=== PATIENT | male | born 1975 | race Caucasian/White ===

== ENCOUNTER 2020-11-29 19:58 | Inpatient (IN) | payer OTHER, SELFPAY ==
--- NOTE | ~2020-11-29 | CT_ITS ---
EXAMINATION: CT abdomen pelvis wo con EXAM DATE: 11/30/2020 03:45 INDICATION: Abdominal distention. TECHNIQUE: Spiral CT of the abdomen and pelvis was performed without contrast. Axial, coronal and s agittal images of the abdomen and pelvis were reviewed. The dose-length product (DLP) for this exami nation was 888.30 mGy-cm. The exposure was tailored according to patient size (auto mA exposure cont rol), and iterative reconstruction (ASIR) was used as additional dose reduction technique. There is no prior study for comparison. FINDINGS: Small to moderate amount of ascites, mesenteric edema. There is some generalized body wall fat stranding, also extending into the right thigh. Left liver lobe lateral segment appears hypertrop hied, as well as the caudate lobe compared to other segments, suspect cirrhosis. Somewhat serpiginous appearing soft tissue densities in the upper aspect of retroperitoneum suspected to be varicosities, suspect portal hypertension. No focal regions of peritoneal nodularity to suggest carcinomatosis. Ad renal glands, spleen, pancreas are unremarkable. There are cholecystectomy clips. There is no nephr olithiasis or hydronephrosis. The prostate is unremarkable. The bladder is unremarkable. There is no retroperitoneal or pelvic lymphadenopathy. The appendix is not identified. There is small to moderate-sized gastroesophageal hiatal hernia. Th ere is expected amount of colonic stool. No free intraperitoneal gas. Heart is normal in size. Th ere is small right pleural effusion, adjacent right lower lobe subsegmental atelectasis/scarring. Th e lung bases are unremarkable. There are no osteoblastic or osteolytic lesions identified. IMPRESSION: 1. Suspect cirrhosis and portal hypertension. 2. Small to moderate ascites. 3. Small to moderate hiatal hernia. 4. Small right pleural effusion and adjacent atelectasis. Reviewed, dictated and finalized at location A.
--- NOTE | ~2020-11-29 | US_ITS ---
EXAMINATION: US paracentesis abd w/image DATE: 11/30/2020 12:12 INDICATION: Ascites. TECHNIQUE: The procedure and its risks, benefits, and alternatives were discussed with the patient. P otential risks discussed included bleeding and infection. The skin was prepped and draped in sterile fashion. 1% lidocaine was used for local anesthesia. Under ultrasound guidance, a 5 Fr catheter with trochar was advanced into the ascites in the left lower quadrant. Fluid was aspirated. The catheter w as removed, and a dressing was applied. There were no immediate complications. FINDINGS: Ultrasound images demonstrate ascites and the catheter within the fluid. IMPRESSION: 1. Successful ultrasound-guided paracentesis yielding 600 mL of clear, yellow fluid. Reviewed, dictated and finalized at location A.
--- NOTE | ~2020-11-29 | XR_ITS ---
XR chest 2V DATE: 11/29/2020 21:09 INDICATION: Chest pain, dizziness, lower limb swelling. Weakness. Nausea and vomiting. TECHNIQUE: AP and lateral views COMPARISON: None FINDINGS: There is cardiomegaly. Is aortic arch calcification and mild aortic unfolding. There is minimal atelectasis at the right lung base. The lungs otherwise appear clear. There may be s light right pleural effusion. No left pleural effusion. No pneumothorax. IMPRESSION: Cardiomegaly Minimal atelectasis at right lung base, possible slight right pleural effusion Reviewed, dictated and finalized at location A.
--- NOTE | ~2020-11-29 | CT_ITS ---
EXAMINATION: CT brain wo con DATE: 11/30/2020 11:32 INDICATION: Diplopia. Dizziness. TECHNIQUE: Computed tomography (CT) of the head was performed without intravenous contrast. The mA wa s adjusted according to patient size. Iterative reconstruction technique was employed. The dose-lengt h product was 681.00 mGy-cm. COMPARISON: None FINDINGS: There is no intracranial hemorrhage, acute infarction, or abnormal intracranial mass lesion . The ventricles are normal in size. There is mucosal thickening in the paranasal sinuses. The orbits are normal. There is a small right mastoid effusion. IMPRESSION: 1. Normal brain. Reviewed, dictated and finalized at location A. IMPRESSION: 1. Normal brain.
--- NOTE | ~2020-11-29 | US_ITS ---
EXAMINATION: US venous doppler [facility] DATE: 11/30/2020 12:13 INDICATION: Lower limb swelling TECHNIQUE: Grayscale ultrasound images without and with compression and Doppler ultrasound images of the bilateral lower extremity veins were obtained. COMPARISON: None. FINDINGS: The visualized portions of right common femoral vein, profunda (deep) femoral vein, femoral vein, pop liteal vein, posterior tibial veins, peroneal veins, gastrocnemius vein and greater saphenous vein ou tflow are patent. The visualized portions of left common femoral vein, profunda femoral vein, femoral vein, popliteal v ein, posterior tibial veins, peroneal veins, gastrocnemius vein and greater saphenous vein outflow ar e patent. IMPRESSION: 1. No deep venous thrombosis in either lower limb. Reviewed, dictated and finalized at location B.
--- NOTE | 2020-11-29 20:41 | ECG_ITS ---
Measurements Intervals [place] Rate: 94 P: NV: 0 QRS: -13 QRSD: 98 T: 62 QT: 412 QTc: 517 Interpretive Statements SINUS OR ECTOPIC ATRIAL RHYTHM PROLONGED QT INTERVAL ABNORMAL ECG Electronically Signed On 11-29-2020 21:00:56 CDT by Blaise Hill D.O.
[2020-11-29 20:42] VITALS: BP 142/90; PULSE 100; RESP 17; TEMP 36.9; O2SAT 98
[2020-11-29 21:01] LABS: Basophils Absolute Auto 0.1 K/mm3 (0.0-0.1); Eosinophils Absolute Auto 0.2 K/mm3 (0-0.3); Hematocrit 36.7 % (42.0-52.0); Hemoglobin 12.4 g/dL (14.0-18.0); Immature Granulocyte Absolute 0.03 K/mm3 (0.00-0.031); Immature Granulocyte Percent A 0.3 % (0-0.5); Immature Platelet Fraction Pct 12.2 % (0.9-11.2); Lymphocytes Percent Auto 25.7 % (18.3-44.2); Mean Corpuscular HGB Conc 33.8 g/dl (32-36); Mean Corpuscular Hemoglobin 34.5 pg (26-34); Mean Corpuscular Volume 102.2 fl (80-100); Mean Platelet Volume 11.9 fl (7.4-10.4); Monocytes Absolute Auto 1.6 K/mm3 (0.1-0.6); Monocytes Percent Auto 16.7 % (2.6-8.5); Neutrophils Absolute Auto 5.1 K/mm3 (1.3-6.7); Neutrophils Percent Auto 54.3 % (45.5-73.1); Platelet Count Result 59 k/mm3 (150-375); Red Blood Count 3.59 M/mm3 (4.6-6.20); Red Cell Distribution Width 16.6 % (11.5-14.5); White Blood Count 9.3 K/mm3 (4.5-10.0)
[2020-11-29 21:09] LABS: INR 1.8; Prothrombin Time 20.4 Seconds (11.1-14.7)
[2020-11-29 21:10] LABS: Anion Gap 10 mmol/L (8-16); Blood Urea Nitrogen 6 mg/dL (9-20); Calcium 8.7 mg/dL (8.4-10.2); Carbon Dioxide 24 mmol/L (22-30); Chloride 104 mmol/L (98-107); Estimated Glomerular Filt Rate > 60; Glucose 120 mg/dL (65-110); Partial Thromboplastin Time 33.7 SECONDS (22.3-36.8); Potassium 3.6 mmol/L (3.4-5.0); Sodium 138 mmol/L (137-145)
[2020-11-29 21:22] LABS: Troponin I 0.024 ng/mL (0.000-0.034)
[2020-11-30] VITALS (14 sets, daily range): BP systolic 107–142; BP diastolic 64–85; PULSE 79–107; RESP 16–22; TEMP 36.3–36.6; O2SAT 94–100; BMI 30.3
--- NOTE | 2020-11-30 | ECHO_ITS ---
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 Strain analysis performed. Summary 1. Complete two-dimensional, color flow and Doppler transthoracic echocardiogram is performed. 2. Strain analysis performed. 3. Left ventricular chamber dimension is moderately enlarged. 4. Left ventricular systolic function is mildly reduced, estimated at 40-45%. 5. There is mildly increased left ventricular wall thickness. 6. The left ventricular diastolic function is grade I diastolic dysfunction. 7. Global longitudinal strain is normal at -20 %. 8. Left atrial chamber dimension is mildly enlarged. 9. There is mild mitral valve regurgitation. 10. There is mild tricuspid valve regurgitation. 11. Moderate pulmonary hypertension, estimated pulmonary arterial systolic pressure is 48 mmHg. 12. There is mild pulmonic regurgitation. Left Ventricle Left ventricular chamber dimension is moderately enlarged. Left ventricular systolic function is mildly reduced, estimated at 40-45%. There is mildly increased left ventricular wall thickness. The left ventricular diastolic function is grade I diastolic dysfunction. Global longitudinal strain is normal at -20 %. Right Ventricle Right ventricular chamber dimension is normal. Right ventricular systolic function is normal. Left Atria Left atrial chamber dimension is mildly enlarged. Right Atria Right atrial chamber dimension is normal. Atrial Septum Intact interatrial septum visualized by color flow imaging. Aortic Valve The aortic valve is trileaflet. There is mild aortic valve sclerosis. There is no aortic valve stenosis. Pulmonic Valve The pulmonic valve is normal. There is no pulmonic valve stenosis. There is mild pulmonic regurgitation. Mitral Valve The mitral valve has normal leaflets. There is no mitral valve stenosis. There is mild mitral valve regurgitation. Tricuspid Valve The tricuspid valve leaflets are normal. There is no significant tricuspid valve stenosis. There is mild tricuspid valve regurgitation. Moderate pulmonary hypertension, estimated pulmonary arterial systolic pressure is 48 mmHg. Pericardium/Pleural The pericardium appears normal. There is no pericardial effusion. Inferior Vena Cava Normal inferior vena cava with >50% collapse upon inspiration consistent with normal right atrial pressure, 10 mmHg. Aorta The aortic root size at the sinus of Valsalva is normal. The prox ascending aorta size is normal. Left Ventricular Outflow Tract Name Value Normal LVOT 2D LVOT Diameter
--- NOTE | 2020-11-30 00:08 | ED.CHESTPAIN ---
HPI - Chest Pain General Chief Complaint: Chest Pain Stated Complaint: leg pain, swelling, dizzy x one month Time Seen by Provider: 11/30/20 00:07 Source: patient Mode of arrival: ambulatory Limitations: no limitations History of Present Illness HPI narrative: Patient is a 45-year-old male complaining of increasing lower extremity edema, increased abdominal distention causing chest discomfort that has been going on for the past at least 2 months . Patient attributes his chest discomfort due to the abdominal distention pushing up to his chest. Patient denies any abdominal pain, nausea, vomiting, diaphoresis, fever or chills. Patient was complaining of on and off dizziness is also been going on for the past few months currently denies being dizzy. Patient states that he has a history of hepatitis C, diagnosed years ago and has never been treated. Patient states that he occasionally drinks but not daily. Related Data Allergies Allergy/AdvReac Type Severity Reaction Status Date / Time No Known Allergies Allergy Unverified 05/25/17 07:07 Review of Systems Review of Systems: All systems reviewed & are unremarkable except as noted in HPI and below Constitutional: Constitutional: Denies body ache(s), Denies chills, Denies excessive sweating, Denies fatigue, Denies fever(s), Denies headache(s), Denies lethargy, Denies malaise and Denies weight loss Eyes: Eyes: Denies blurry vision, Denies change in vision and Denies loss of vision ENT: Denies dizziness, Denies ear discharge, Denies headache(s), Denies lip swelling, Denies epistaxis, Denies nasal congestion, Denies neck pain, Denies throat swelling and Denies tongue swelling Cardiovascular: Cardiovascular: Denies chest pain, Denies chest pain at rest, Denies chest pain with activity, Denies diaphoresis, Denies rapid heart rate, Denies edema, Denies irregular heart rhythm, Denies lightheadedness, Denies palpitations, Denies dyspnea and Denies dyspnea on exertion Respiratory: Respiratory: Denies chest congestion, Denies cough, Denies hemoptysis, Denies dyspnea and Denies dyspnea on exertion Gastrointestinal: Gastrointestinal: Denies abdominal pain, Denies melena, Denies hematochezia, Denies diarrhea, Denies nausea, Denies vomiting and Denies hematemesis Musculoskeletal: Musculoskeletal: Denies abnormal gait, Denies deformity, Denies joint swelling, Denies limited range of motion, Denies neck pain and Denies numbness Neurologic: Denies Abnormal speech present, Denies abnormal gait, Denies confusion, Denies headache(s), Denies focal weakness, Denies loss of vision, Denies numbness, Denies Other visual disturbances, Denies Sensory deficit (Neuro) and Denies weakness Psychiatric: Psychiatric: Denies confusion, Denies depression, Denies auditory hallucinations, Denies homicidal ideation and Denies suicidal ideation Endocrine: Endocrine: Denies cold intolerance, Denies excessive sweating, Denies fatigue, Denies heat intolerance and Denies palpitations Hematologic/Lymphatic: Hematologic/Lymphatic: Denies easy bleeding and Denies easy bruising Allergic/Immunologic: Allergic/Immunologic: Denies lip swelling, Denies throat swelling and Denies tongue swelling PMFSH Comments Past medical history: Hepatitis C Family history: Negative for coronary disease or CA Social history: Positive for smoker, occasional EtOH use, denies any drug use Exam Const: General: cooperative, healthy appearing, comfortable, no acute distress, well developed, alert and awake; No confusion Orientation/consciousness: oriented to person, oriented to place, oriented to time, patient oriented x3 and No confusion Limitations: no limitations HENMT: Head: normal to inspection, normocephalic and atraumatic Ears: hearing grossly normal bilaterally, TM normal on the right and TM normal on the left General nose exam: Normal external nose present, Normal nares present and No nasal discharge present Face and sinus: normal facial exam
[2020-11-30] MEDS: FUROSEMIDE INJ 40 MG/4 ML VIAL 20 MG IV PUSH ×2 (00:41→16:50)
[2020-11-30 00:54] LABS: NT Pro B Type Natriuretic Pept 191 pg/mL (5-100)
[2020-11-30 01:42] LABS: Alanine Aminotransferase 65 U/L (4-50); Albumin Level 3.5 g/dL (3.5-5.1); Alkaline Phosphatase 193 U/L (38-126); Aspartate Amino Transferase 195 U/L (17-59); Bilirubin,Total 4.5 mg/dL (0.2-1.3)
[2020-11-30 03:07] LABS: Troponin I 0.027 ng/mL (0.000-0.034)
[2020-11-30 04:06] LABS: Troponin I 0.026 ng/mL (0.000-0.034)
--- NOTE | 2020-11-30 04:58 | ADMGEN ---
This patient, Abiel Alberto, was admitted to Medical Room 346-01. Patient/family oriented to hospital policies and general routines including ID bracelet, bed and alarms, visiting hours, pain management, procedures, bathroom and other care routines, personal items, smoking policy, room service/diet, and visiting hours. Information on how to activate the Rapid Response Team has been discussed. Patient/Family are encouraged to report perceived risks to care and to ask questions if they do not understand what they are told or what they should do.
--- NOTE | 2020-11-30 09:46 | PM.IMHP ---
H&P: HPI History of Present Illness Date/Time: 11/30/20 09:46 Chief Complaint: leg swelling Narrative: Pt is a 45-year-old male with a history of untreated hepatitis-C who presented emergency room for lower extremity edema, abdominal swelling, dizziness and chest pain. Patient states about a month ago he started having lower extremity edema that started in his feet but went up to his thighs. He also notices stomach was more bloated than normal. He states he has a history of hepatitis-C but no history of cirrhosis. He does drink alcohol 3 days a week and when he does he drinks 2 mixed drinks and 3 fireball shots. He says he has never had this swelling before and he is unsure if he still has hepatitis-C. He says he was diagnosed with hepatitis C when he was 30 after sharing needles. He has not done IV drugs for 7 years. No history of blood clots. He does mention that he has been having some chest pain. He actually thinks the chest pain is from the abdomen pushing up into his chest. The pain is a stabbing/dull pain the last 2nd. It can happen while he is sitting or walking and it goes away immediately. It does not radiate to his arm or jaw. He has been noticing in the last 3 months that he has been dizzy. It happens when he is outside or inside and mostly when he stands up. He says laying down and drinking water helps the dizziness. he also notices that he has been having blurry vision on and off as well. he has no chest pain with the dizziness. No history of COVID or COVID vaccine. He does mention that he has a loss of appetite. No dark stool noted and he has regular light brown stools. Review of Systems Review of Systems: All systems reviewed & are unremarkable except as noted in HPI and below PMFSH Past Medical History Medical History (Updated 11/30/20 @ 11:01 by Susan Quiroz PA-C) History of hepatitis C Surgical History Surgical History (Updated 11/30/20 @ 11:02 by Susan Quiroz PA-C) History of appendectomy History of cholecystectomy Family History Family History (Updated 11/30/20 @ 11:02 by Susan Quiroz PA-C) Mother Peripheral arterial disease Sibling Diabetes mellitus Other Unknown family medical history Social History Social History (Updated 11/30/20 @ 11:03 by Susan Quiroz PA-C) Social History: patient smokes 1 pack per day and has done so since he was 15. He drinks 3 days a week and usually drinks 2 mixed drinks with 3 but fireball shots. No IV drugs or street drugs but does do marijuana. He would like to be a full code. In the event of him being unable to him make his own decisions, he elects Clement, his son as his surrogate decision maker. pt does no work Smoking packs per day: 1 Smoking cigarettes per day: 20.0 Years smoked: 30 Smoking pack-years: 30.00 Smoking status: Current every day smoker Tobacco type: cigarettes Second hand tobacco smoke exposure: No Alcohol intake: current Drinks per week: 6 Substance use: current Substance use type: marijuana Gender identity (if verbalized by the patient): Male Spiritual care concerns: No Meds Home Medications and Allergies Home Medications Medication Instructions Recorded Confirmed Type No Home Medications 11/30/20 11/30/20 History Allergies Allergy/AdvReac Type Severity Reaction Status Date / Time No Known Allergies Allergy Unverified 05/25/17 07:07 Vital Signs Vital Signs - 24 hr 11/29/20 20:42 11/30/20 00:08 11/30/20 00:26 Temperature 98.5 F Pulse Rate 100 100 96 Respiratory Rate 17 21 H Blood Pressure 142/90 H 142/85 H 119/77 Pulse Oximetry 98 97 98 11/30/20 01:31 11/30/20 02:31 11/30/20 03:01 Temperature Pulse Rate 93 94 88 Respiratory Rate 20 22 H 17 Blood Pressure 116/64 108/67 119/66 Pulse Oximetry 96 94 96 11/30/20 03:58 11/30/20 04:47 11/30/20 06:00 Temperature 97.7 F 98 F Pulse Rate 94 85 94 Respiratory Rate 18 16 18 Bl
[2020-11-30 10:23] LABS: Alanine Aminotransferase 56 U/L (4-50); Albumin Level 3.1 g/dL (3.5-5.1); Alkaline Phosphatase 160 U/L (38-126); Aspartate Amino Transferase 165 U/L (17-59); Bilirubin,Total 5.5 mg/dL (0.2-1.3)
[2020-11-30 11:03] LABS: Hepatitis B Surface Antigen Negative (Negative)
[2020-11-30 11:08] LABS: HAV RESULT Negative (Negative); Hepatitis B Core IgM Result Negative (Negative)
[2020-11-30 11:23] LABS: Hepatitis C Virus Antibody Reactive (Negative)
[2020-11-30 11:29] LABS: Folic Acid 4.8 ng/mL (2.76->20)
[2020-11-30] MEDS: SPIRONOLACTONE 25 MG TABLET PO (12:19)
[2020-11-30 14:23] LABS: Source Peritoneal Fluid Peritoneal Fluid
[2020-11-30 14:24] LABS: Appearance Peritoneal Fluid Clear (Clear); Color Peritoneal Fluid Yellow (Colorless); Nucleated Cells Peritoneal Flu 137 /uL (0-500); RBC Peritoneal Fluid 517 /uL (0-100000)
[2020-11-30 14:31] LABS: Neutrophils Peritoneal Fluid 1 % (0-25)
[2020-11-30 14:32] LABS: Macrophages Peritoneal Fluid 6 %; Monocytes Peritoneal Fluid 49 %
[2020-11-30 16:37] LABS: Lymphocytes Peritoneal Fluid 44 %
--- NOTE | 2020-11-30 16:54 | WPDGICN ---
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): Code(s): B19.20 - Unspecified viral hepatitis C without hepatic coma; K74.69 - Other cirrhosis of liver Status: Acute Assessment and Plan: here with decompensated cirrhosis due to HCV, he is treatment naive MELD score 19 he also will need to quit drinking alcohol nutrition support will do also EGD as outpatient to assess if varices, phg, etc (2) Abdominal ascites: Qualifiers: Ascites type: other type Qualified Code(s): R18.8 - Other ascites Code(s): R18.8 - Other ascites Status: Acute Assessment and Plan: no sbp will start oral diuretics (aldactone and lasix), 2g na diet we can see him in office but because high meld score and young age, also will benefit to establish with a lead supply worker in [place] (3) Elevated liver enzymes: Code(s): R74.8 - Abnormal levels of other serum enzymes Status: Acute Assessment and Plan: from cirrhosis (4) Thrombocytopenia: Code(s): D69.6 - Thrombocytopenia, unspecified Status: Acute Assessment and Plan: from cirrhosis (5) Drug abuse in remission: Code(s): F19.11 - Other psychoactive substance abuse, in remission Status: Acute (6) Chest pain: Code(s): R07.9 - Chest pain, unspecified Status: Acute (7) Dizziness: Code(s): R42 - Dizziness and giddiness Status: Acute (8) Macrocytic anemia: Code(s): D53.9 - Nutritional anemia, unspecified Status: Acute GI Consult Note Consult date/time: 11/30/20 16:54 Reason for consult: HCV cirrhosis, ascites HPI: Abiel Alberto is a 45 year old male with history of hepatitis C diagnosed when he was 30 yo, former IVDA clean for 7 years. He came here with progressive lower extremity edema over last month, increase abdominal girth, dizziness and chest pain. He drinks alcohol 3 days a week and when he does he drinks 2 mixed drinks and 3 fireball shots. He is treatment naive and otherwise not taking any medication. He says that chest pain is from the abdomen pushing up, describes as stabbing/dull pain. Blood work consistent with cirrhosis, had platelets 59, inr 1.8, creat 0.7, bili 4.5. CT scan reviewed, showed cirrhosis and portal hypertension, small to moderate ascites, small to moderate hiatal hernia. He underwent paracentesis and 600ml removed, no SBP. Review of Systems Constitutional: Constitutional: Denies chills Eyes: Eyes: Denies blurry vision ENT: Reports Normal hearing present Cardiovascular: Cardiovascular: Reports chest pain Respiratory: Respiratory: Denies cough Gastrointestinal: Gastrointestinal: Denies melena Genitourinary: Genitourinary: Denies dysuria Musculoskeletal: Musculoskeletal: Denies neck pain Integumentary/Breasts: Skin/Breast: Denies dry skin Neurologic: Denies numbness Psychiatric: Psychiatric: Reports no additional psychiatric complaints [facility] Past Medical History Medical History (Updated 11/30/20 @ 17:01 by Brett Wellington MD) 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 He drinks 3 days a week and usually drinks 2 mixed drinks with 3 but fireball shots. No IV drugs or street drugs but does do marijuana. He would like to be a full code. In the event of him being unable to him make his own decisions, he suleiman
[2020-11-30 23:02] LABS: Hepatitis C Virus Antibody 0.06 S/C; Hepatitis C Virus Antibody Negative (Negative)
[2020-12-01] VITALS (7 sets, daily range): BP systolic 126–130; BP diastolic 74–78; PULSE 80–97; RESP 18; TEMP 36.1–36.3; O2SAT 96–100
[2020-12-01 06:28] LABS: Hematocrit 35.6 % (42.0-52.0); Hemoglobin 12.1 g/dL (14.0-18.0); Immature Platelet Fraction Pct 15.1 % (0.9-11.2); Mean Corpuscular Hemoglobin 35.3 pg (26-34); Mean Corpuscular Volume 103.8 fl (80-100); Mean Platelet Volume 13.6 fl (7.4-10.4); Platelet Count Result 48 k/mm3 (150-375); Red Blood Count 3.43 M/mm3 (4.6-6.20); Red Cell Distribution Width 16.9 % (11.5-14.5); White Blood Count 6.7 K/mm3 (4.5-10.0)
[2020-12-01 06:39] LABS: Alanine Aminotransferase 48 U/L (4-50); Albumin Level 2.8 g/dL (3.5-5.1); Alkaline Phosphatase 140 U/L (38-126); Anion Gap 5 mmol/L (8-16); Aspartate Amino Transferase 139 U/L (17-59); Bilirubin Direct 0.2 mg/dL (0-0.3); Bilirubin,Total 6.8 mg/dL (0.2-1.3); Blood Urea Nitrogen 6 mg/dL (9-20); Calcium 8.2 mg/dL (8.4-10.2); Carbon Dioxide 23 mmol/L (22-30); Chloride 104 mmol/L (98-107); Estimated CRCL calculation 159 ml/min; Estimated Glomerular Filt Rate > 60; Glucose 95 mg/dL (65-110); Magnesium 1.6 mg/dL (1.6-2.3); Potassium 3.4 mmol/L (3.4-5.0); Sodium 132 mmol/L (137-145)
[2020-12-01 07:18] LABS: HIV 1/2 Ab P24 Ag Result Negative (Negative)
[2020-12-01] MEDS: SPIRONOLACTONE 25 MG TABLET 100 MG PO (07:57)
[2020-12-01] MEDS: FUROSEMIDE 40 MG TABLET PO (07:57)
--- NOTE | 2020-12-01 15:04 | WPDGIPROGNO ---
Progress Note: A&P Assessment and Plan (1) Decompensated cirrhosis related to hepatitis C virus (HCV): Code(s): B19.20 - Unspecified viral hepatitis C without hepatic coma; K74.69 - Other cirrhosis of liver Status: Acute Assessment and Plan: repeat serology pending he can follow up in office in 4-6 weeks and if + RNA then will talk about options of treatment for his HCV blood work for other chronic liver conditions pending will also set up EGD as outpatient to assess if varices, PGH, etc (2) Thrombocytopenia: Code(s): D69.6 - Thrombocytopenia, unspecified Status: Acute Assessment and Plan: from cirrhosis (3) Macrocytic anemia: Code(s): D53.9 - Nutritional anemia, unspecified Status: Acute (4) Abdominal ascites: Qualifiers: Ascites type: other type Qualified Code(s): R18.8 - Other ascites Code(s): R18.8 - Other ascites Status: Acute Assessment and Plan: no sbp on lasix and aldactone, renal function ok also continue with 2g na diet and nutrition support (5) Colon cancer screening: Code(s): Z12.11 - Encounter for screening for malignant neoplasm of colon Status: Acute Assessment and Plan: he also would like to have screening colonoscopy since never had one will set up (6) Drug abuse in remission: Code(s): F19.11 - Other psychoactive substance abuse, in remission Status: Acute Subjective Date/time seen: 12/01/20 15:04 Interval history: feeling better, abdomen less distended and also less leg edema. Review of Systems Review of Systems: All systems reviewed & are unremarkable except as noted in HPI and below Exam Const: General: comfortable and no acute distress HENMT: General nose exam: Normal nares present Eyes: Pupils: Equal, round and reactive pupils present Neck: Neck: supple Resp: Effort & Inspection: normal respiratory effort Cardio: Rate: regular rate GI: GI Palp: Yes Soft to palpation and No Guarding due to palpation present (GI) Auscultation: normal bowel sounds Other: less distended Skin: General skin exam: no rashes or lesions noted Neuro: Speech: normal speech Motor exam (neuro): Normal motor muscle tone present throughout Extrem: General: pedal edema Psych: Mental Status: mental status grossly normal Objective Data Vital Signs Vital Signs: Vital Signs - 24 hr 11/30/20 15:07 11/30/20 20:00 11/30/20 22:00 Temperature 97.4 F L Pulse Rate 90 107 H 91 Respiratory Rate 21 H Blood Pressure 119/69 Pulse Oximetry 100 12/01/20 00:00 12/01/20 04:00 12/01/20 06:00 Temperature 97.0 F L Pulse Rate 81 82 80 Respiratory Rate 18 Blood Pressure 126/78 Pulse Oximetry 96 12/01/20 08:00 12/01/20 12:00 Temperature Pulse Rate 97 85 Respiratory Rate Blood Pressure Pulse Oximetry Intake/Output Intake/Output: Intake & Output 11/28/20 11/29/20 11/30/20 12/01/20 23:59 23:59 23:59 23:59 Intake Total 1030 1200 Output Total 1700 800 Balance -670 400 Meds/Results Medications: Active Medications Generic Name Dose Route Start Last Admin Trade Name Freq PRN Reason Stop Dose Admin Furosemide 40 mg 12/01/20 09:00 12/01/20 07:57 Furosemide 40 Mg Tablet PO 40 mg DAILY JASPAL Administration Promethazine HCl 12.5 mg 11/30/20 09:47 Promethazine Hcl 25 Mg/Ml Ampul IV PUSH Q4H PRN Nausea And Vomiting Spironolactone 100 mg 12/01/20 09:00 12/01/20 07:57 Spironolactone 25 Mg Tablet PO 100 mg QAM JASPAL Administration Radiology Results: ITS Impressions Chest X-Ray 11/29/20 21:13 IMPRESSION: Cardiomegaly Minimal atelectasis at right lung base, possible slight right pleural effusion Abdomen/Pelvis CT 11/30/20 08:11 IMPRESSION: 1. Suspect cirrhosis and portal hypertension. 2. Small to moderate ascites. 3. Small to moderate hiatal hernia. 4. Small right pleural effusion and adjac
--- NOTE | 2020-12-01 17:30 | PM.DS ---
DS: Admitting Diagnosis Admitting Diagnosis Bilateral lower extremity edema, cirrhosis, ascites DS: Discharge Diagnosis Discharge Diagnosis (1) Decompensated cirrhosis related to hepatitis C virus (HCV): Code(s): B19.20 - Unspecified viral hepatitis C without hepatic coma; K74.69 - Other cirrhosis of liver Status: Acute Assessment and Plan: repeat serology pending - hep c panel pending he can follow up in primary care office and/or GI in 4-6 weeks and if + RNA then will talk about options of treatment for his HCV HIV negative LFTs abnormally elevated, but improving slowly needs to F/U with GI for outpatient EGD to monitor for varices, etc. (2) Thrombocytopenia: Code(s): D69.6 - Thrombocytopenia, unspecified Status: Acute Assessment and Plan: Related to cirrhosis / liver failure/ related to alcohol use Platelets are 48 today, they were 59 yesterday Platelets in December of 2018 were 153 (3) Macrocytic anemia: Code(s): D53.9 - Nutritional anemia, unspecified Status: Acute Assessment and Plan: Vit B12 elevated and folate WNL no signs of blood loss on exam will need to follow up with his primary care provider for iron deficit workup Continue to improve dietary intake and stop alcohol consumption (4) Abdominal ascites: Qualifiers: Ascites type: other type Qualified Code(s): R18.8 - Other ascites Code(s): R18.8 - Other ascites Status: Acute Assessment and Plan: Due to cirrhosis -paracentesis completed 600 mls of fluid removed which then showed no growth per culture continue with 2g na diet and nutrition support on lasix and aldactone, renal function ok Patient stated these medications greatly improved his ability to get rid of his fluid, experience softer abdomen and tolerate eating more with each meal. (5) Colon cancer screening: Code(s): Z12.11 - Encounter for screening for malignant neoplasm of colon Status: Acute Assessment and Plan: Patient will need to follow up with GI for his outpatient screening colonoscopy (6) Drug abuse in remission: Code(s): F19.11 - Other psychoactive substance abuse, in remission Status: Acute Assessment and Plan: No anxiety or withdrawal noted at this time No tachycardia or uncontrolled hypertension or DTs noted. no concerns (7) Cirrhosis: Code(s): K74.60 - Unspecified cirrhosis of liver Status: Acute Assessment and Plan: Symptoms and CT findings consistent with cirrhosis -CT showing moderate ascites and patient is symptomatic. - Paracentesis ordered -could be due to history of untreated hepatitis-C, will obtain hepatitis panel with hepatitis C RNA -will do routine labs such as smooth muscle, alpha fetoprotein, alpha-1 antitrypsin, TANNER, ceruloplasmin, mitochondrial antibody and patient will need to follow up with his primary care physician or GI physician for these results -continue Lasix 20 mg IV b.i.d. and start spironolactone -urine output adequate - Tolerating oral intake well after his procedure -GI consult appreciated and patient has already is discussed how he will be following up with Dr. Helm (8) Elevated liver enzymes: Code(s): R74.8 - Abnormal levels of other serum enzymes Status: Acute Assessment and Plan: Likely due to above -continue with above workup (9) History of hepatitis C: Code(s): Z86.19 - Personal history of other infectious and parasitic diseases Status: Acute Assessment and Plan: Will check hepatitis-C RNA See above workup (10) Chest pain: Code(s): R07.9 - Chest pain, unspecified Status: Acute Assessment and Plan: Appears atypical -troponins negative x3 -EKG shows prolonged QT interval, no evidence of ACS -BNP slightly elevated but does not suggest heart failure -ECHO: Left ventricular chamber dimension is moderately enlarged. LV EF reduced, estimated at
[2020-12-02 19:06] LABS: Hepatitis C RNA, Quant PCR 912 IU/mL
[2020-12-02 22:07] LABS: Ceruloplasmin 25 mg/dL (18-36)
[2020-12-03 11:49] LABS: Mitochondrial (M2) Ab (IgG) <=20.0 U (<=20.0)
[2020-12-03 17:07] LABS: Glucose Peritoneal Fluid 106 mg/dL; LDH Peritoneal Fluid 34 U/L (<63); Total Protein Peritoneal Fluid <3.0 g/dL
[2020-12-04 13:36] LABS: Hepatitis C Viral RNA PCR 188 IU/mL
[2020-12-04 17:12] LABS: Alpha Fetoprotein Tumor Marker 6.2 ng/mL (<6.1)
[2020-12-05 00:29] LABS: Amylase Peritoneal Fluid 27 U/L
[2020-12-06 00:44] LABS: Albumin Peritoneal Fluid 0.4 g/dL
[2020-12-06 10:03] LABS: Actin Antibody (IgG) 41 U (<20)
== END 2020-12-01 18:29 | disposition home or self-care (01) ==
LOC: ANHED 11-30 03:31 → ANH3MED 11-30 04:56
PROVIDERS: Emergency Medicine; Internal Medicine Gastroenterology; Physician Assistant; Admitting Provider Internal Medicine; Emergency Provider Emergency Medicine; PCP Internal Medicine Infectious Disease; Visit Provider Nurse Practitioner
DX: K74.69 Other cirrhosis of liver (principal); R18.8 Other ascites; R07.9 Chest pain, unspecified; B19.20 Unspecified viral hepatitis C without hepatic coma; Z90.49 Acquired absence of other specified parts of digestive tract; F17.210 Nicotine dependence, cigarettes, uncomplicated; D69.6 Thrombocytopenia, unspecified; D53.9 Nutritional anemia, unspecified; R94.31 Abnormal electrocardiogram [ECG] [EKG]
CPT/HCPCS: 36415; 49083; 70450; 71046; 74176; 80048; 80074; 80076; 82042; 82104; 82105; 82150; 82390; 82607; 82746; 82945; 83516; 83520; 83615; 83735; 83880; 84157; 84484; 85025; 85027; 85055; 85060; 85610; 85730; 86038; 86703; 86803; 87070; 87075; 87205; 87522; 88104; 88108; 88305; 89051; 93005; 93306; 93970; 96374; 99285; A9270; G0378; G0379; G0432; J1940

== ENCOUNTER 2021-01-22 17:50 | Inpatient (IN) | payer OTHER, SELFPAY ==
--- NOTE | ~2021-01-22 | CT_ITS ---
EXAMINATION: CTA chest PE protocol DATE: 01/23/2021 08:34 INDICATION: Chest pain. TECHNIQUE: Computed tomography angiography (CTA) of the chest was performed with 100 mL Omnipaque-350 intravenous contrast timed to evaluate the pulmonary arteries. Coronal maximum intensity projection 3D-reconstructions were created by the technologist. Automated exposure control and iterative reconst ruction technique were employed. The dose-length product was 554.13 mGy-cm. COMPARISON: CT abdomen and pelvis 11/30/2020 FINDINGS: There is mild atelectasis bilaterally. A calcified right lung nodule and calcified right hi lar lymph nodes are consistent with old granulomatous disease. There is a trace right pleural effusio n. The heart size is normal. No pericardial effusion. There is a moderate-sized sliding hiatal hernia . There is no pulmonary embolus. There are changes of cholecystectomy. There is liver surface nodular ity, consistent with cirrhosis. There is a small volume of perihepatic ascites. There is mild gastroh epatic and periportal lymphadenopathy, likely reactive. There is bilateral gynecomastia. There is mil d thoracic spondylosis. IMPRESSION: 1. No pulmonary embolus. 2. Cirrhosis of the liver. 3. Small volume of ascites. 4. Moderate-sized sliding hiatal hernia. 5. Stable mild abdominal lymphadenopathy, likely reactive. Reviewed, dictated and finalized at location A.
[2021-01-22 18:08] VITALS: BP 121/93; PULSE 97; RESP 14; TEMP 37.2; O2SAT 98
--- NOTE | 2021-01-22 18:11 | ECG_ITS ---
Measurements Intervals [place] Rate: 90 P: 5 NC: 121 QRS: 1 QRSD: 98 T: 72 QT: 419 QTc: 513 Interpretive Statements SINUS OR ECTOPIC ATRIAL RHYTHM DELAYED PRECORDIAL R/S TRANSITION PROLONGED QT INTERVAL ABNORMAL ECG Electronically Signed On 01-22-2021 19:44:07 CDT by Blaise Hill D.O.
[2021-01-22 18:30] VITALS: BP 144/85; PULSE 95; RESP 16; O2SAT 100
[2021-01-22 18:32] LABS: Basophils Absolute Auto 0.1 K/mm3 (0.0-0.1); Basophils Percent Auto 1.4 % (0.2-1.2); Eosinophils Absolute Auto 0.7 K/mm3 (0-0.3); Eosinophils Percent Auto 6.9 % (0-4.4); Hematocrit 34.4 % (42.0-52.0); Hemoglobin 12.1 g/dL (14.0-18.0); Immature Granulocyte Absolute 0.05 K/mm3 (0.00-0.031); Immature Granulocyte Percent A 0.5 % (0-0.5); Immature Platelet Fraction Pct 11.6 % (0.9-11.2); Lymphocytes Absolute Auto 2.04 K/mm3 (0.9-3.2); Lymphocytes Percent Auto 19.8 % (18.3-44.2); Mean Corpuscular HGB Conc 35.2 g/dl (32-36); Mean Corpuscular Hemoglobin 35.7 pg (26-34); Mean Corpuscular Volume 101.5 fl (80-100); Mean Platelet Volume 11.9 fl (7.4-10.4); Monocytes Absolute Auto 1.3 K/mm3 (0.1-0.6); Neutrophils Percent Auto 58.4 % (45.5-73.1); Platelet Count Result 58 k/mm3 (150-375); Red Blood Count 3.39 M/mm3 (4.6-6.20); Red Cell Distribution Width 15.3 % (11.5-14.5); White Blood Count 10.3 K/mm3 (4.5-10.0)
--- NOTE | 2021-01-22 18:38 | ED.GENADULT ---
HPI - General Adult General Chief complaint: Unspecified Stated complaint: leg swelling/body aches Time Seen by Provider: 01/22/21 18:38 Source: patient History of Present Illness HPI narrative: Patient is a 45 y/o male complaining of bilateral leg pain and swelling for several months. He describes his pain as pressure and rates it as 10/10. There is no known alleviating or exacerbating factor. He also had some chest pain earlier, but no chest pain at this time. Of note, he has history of cirrhosis. Related Data Home Medications Medication Instructions Recorded Confirmed No Home Medications 11/30/20 11/30/20 Allergies Allergy/AdvReac Type Severity Reaction Status Date / Time No Known Allergies Allergy Unverified 05/25/17 07:07 Review of Systems Constitutional: Constitutional: Denies chills, Denies fever(s), Denies headache(s) and Denies weakness Eyes: Eyes: Denies blurry vision ENT: Denies headache(s) and Denies neck pain Cardiovascular: Cardiovascular: Reports chest pain and Reports dyspnea Respiratory: Respiratory: Denies cough and Reports dyspnea Gastrointestinal: Gastrointestinal: Denies abdominal pain, Denies diarrhea, Denies nausea and Denies vomiting Genitourinary: Genitourinary: Denies hematuria and Denies dysuria Musculoskeletal: Musculoskeletal: Reports as per HPI, Denies back pain, Denies neck pain and Reports other (leg swelling) Neurologic: Denies headache(s) and Denies weakness PMFSH Past Medical History Medical History Colon cancer screening Decompensated cirrhosis related to hepatitis C virus (HCV) Drug abuse in remission History of hepatitis C Surgical History Surgical History History of appendectomy History of cholecystectomy Family History Family History Mother Peripheral arterial disease Sibling Diabetes mellitus Other Unknown family medical history Social History Social History Social History: patient smokes 1 pack per day and has done so since he was 15. He drinks 3 days a week and usually drinks 2 mixed drinks with 3 but fireball shots. No IV drugs or street drugs but does do marijuana. He would like to be a full code. In the event of him being unable to him make his own decisions, he elects Clement, his son as his surrogate decision maker. pt does no work Smoking packs per day: 1 Smoking cigarettes per day: 20.0 Years smoked: 30 Smoking pack-years: 30.00 Smoking status: Current every day smoker Tobacco type: cigarettes Second hand tobacco smoke exposure: No Alcohol intake: current Drinks per week: 6 Substance use: current Substance use type: marijuana Gender identity (if verbalized by the patient): Male Spiritual care concerns: No Exam Const: General: no acute distress and well developed Orientation/consciousness: oriented to person, oriented to place, oriented to time and patient oriented x3 HENMT: Head: normocephalic Ears: external ears normal General nose exam: Normal external nose present Eyes: General: appearance normal, both eyes and all related structures Conjunctivae: conjunctivae normal Neck: Neck: normal visual inspection and full ROM Chest: Chest palpation & inspection: normal inspection of the chest and no tenderness Resp: Effort & Inspection: normal respiratory effort Auscultation: clear to auscultation bilaterally Cardio: Rate: regular rate Rhythm: regular rhythm GI: GI Palp: No abdominal tenderness and Yes Soft to palpation Skin: General skin exam: normal color and turgor normal Neuro: General: oriented to person, oriented to place, oriented to time and patient oriented x3 Cognition (Neuro): normal cognition Extrem: General: normal to inspection, full ROM and edema bilateral Psych: A
[2021-01-22 18:42] LABS: Alanine Aminotransferase 89 U/L (4-50); Albumin Level 3.9 g/dL (3.5-5.1); Alkaline Phosphatase 203 U/L (38-126); Anion Gap 8 mmol/L (8-16); Aspartate Amino Transferase 287 U/L (17-59); Bilirubin,Total 6.2 mg/dL (0.2-1.3); Blood Urea Nitrogen 7 mg/dL (9-20); Calcium 8.3 mg/dL (8.4-10.2); Carbon Dioxide 28 mmol/L (22-30); Chloride 103 mmol/L (98-107); Estimated CRCL calculation 106 ml/min; Estimated Glomerular Filt Rate > 60; Glucose 137 mg/dL (65-110); Potassium 3.9 mmol/L (3.4-5.0); Sodium 139 mmol/L (137-145)
[2021-01-22 20:05] LABS: Add Urine Microscopic? YES; Appearance Urine Cloudy (Clear); Bacteria Urine Trace /hpf; Bilirubin Urine 1+ (Negative); Blood Urine Negative (Negative); Color Urine Amber (Yellow); Glucose Urine UA Negative (Negative); Ketones Urine Negative (Negative); Leukocyte Esterase Ur Negative LEU/UL (Negative); Nitrate Urine Negative (Negative); Protein Urine Negative (Negative); Specific Grav Ur 1.014 (1.001-1.035); Squamous Epithelial Cell Urine Rare /hpf (Few); WBC Urine 0-3 /hpf
[2021-01-22 20:14] LABS: INR 1.8; Partial Thromboplastin Time 33.4 SECONDS (22.3-36.8); Prothrombin Time 20.1 Seconds (11.1-14.7)
[2021-01-22 20:30] LABS: Troponin I 0.067 ng/mL (0.000-0.034)
[2021-01-22 20:45] VITALS: BP 144/99; PULSE 89; RESP 18; O2SAT 100
[2021-01-22] MEDS: FUROSEMIDE INJ 40 MG/4 ML VIAL IV PUSH (20:50)
[2021-01-22] MEDS: SPIRONOLACTONE 50 MG TABLET PO (20:50)
--- NOTE | 2021-01-22 20:50 | PM.IMHP ---
H&P: HPI History of Present Illness Date/Time: 01/22/21 20:50 Chief Complaint: Leg swelling Narrative: This is a 45-year-old male with past medical history significant for IV drug use, hepatitis-C, hepatic cirrhosis, grade 1 diastolic heart failure, systolic heart failure, ejection fraction 40-45%, patient had recent admission on to [facility] back in November of 2020 was discharged home. Patient comes back today due to worsening bilateral lower extremity edema, bilateral lower extremities paresthesia, hematemesis, decreased appetite, states that always feels cold, patient drinks fire ball daily anywhere between 2-12, his down to less than a pack of cigarettes daily, feeling fatigued and tired, dizzy, has been falling due to his gait being unsteady, he denies any fevers, any rigors, any chills, no shortness of breath, no cough, no sputum production. Preliminary workup was significant for elevated liver enzymes, elevated troponins, QTC interval prolongation. Review of Systems Review of Systems: Worsening bilateral lower extremity edema, bilateral lower extremity paresthesia, unsteady gait, recurrent falls. Constitutional: Constitutional: Reports chills, Reports fatigue, Denies fever(s), Reports frequent falls, Reports lethargy, Denies night sweats, Reports weakness and Reports weight gain Eyes: Eyes: Denies change in vision ENT: Denies dysphagia, Denies nasal congestion, Denies nasal discharge, Denies nasal obstruction and Denies odynophagia Cardiovascular: Cardiovascular: Reports edema, Denies irregular heart rhythm, Reports leg edema, Reports lightheadedness, Denies radiating jaw, neck or arm pain, Denies palpitations, Denies dyspnea, Denies dyspnea on exertion and Denies orthopnea Respiratory: Respiratory: Denies change in phlegm color, Denies cough, Denies excessive phlegm production and Denies wheezing Gastrointestinal: Gastrointestinal: Reports abdominal pain, Denies melena, Denies dyspepsia, Denies heartburn, Reports nausea, Reports vomiting and Reports hematemesis Genitourinary: Genitourinary: Reports no additional male genitourinary complaints Musculoskeletal: Comments: Bilateral lower extremity swelling Integumentary/Breasts: Skin/Breast: Reports change in pigmentation (Yellow) Comments: Excoriation, pruritic rash. Neurologic: Reports tremor(s) (When stopping drinking alcohol for a day or so) Psychiatric: Psychiatric: Reports no additional psychiatric complaints Endocrine: Endocrine: Reports no additional endocrine complaints Hematologic/Lymphatic: Hematologic/Lymphatic: Reports no additional hematologic/lymphatic complaints Allergic/Immunologic: Allergic/Immunologic: Reports no additional allergic/immunologic complaints PMFSH Past Medical History Medical History Colon cancer screening Decompensated cirrhosis related to hepatitis C virus (HCV) Drug abuse in remission History of hepatitis C Surgical History Surgical History History of appendectomy History of cholecystectomy Family History Family History Mother Peripheral arterial disease Sibling Diabetes mellitus Other Unknown family medical history Social History Social History Social History: patient smokes 1 pack per day and has done so since he was 15. He drinks 3 days a week and usually drinks 2 mixed drinks with 3 but fireball shots. No IV drugs or street drugs but does do marijuana. He would like to be a full code. In the event of him being unable to him make his own decisions, he elects Clement, his son as his surrogate decision maker. pt does no work Smoking packs per day: 1 Smoking cigarettes per day: 20.0 Years smoked: 30 Smoking pack-years: 30.00 Smoking status: Current every day smoker Tobacco type: cigarettes Sec
--- NOTE | 2021-01-22 22:20 | ADMGEN ---
This patient, Abiel Alberto, was admitted to IMU Room 212-01. Patient/family oriented to hospital policies and general routines including ID bracelet, bed and alarms, visiting hours, pain management, procedures, bathroom and other care routines, personal items, smoking policy, room service/diet, and visiting hours. Information on how to activate the Rapid Response Team has been discussed. Patient/Family are encouraged to report perceived risks to care and to ask questions if they do not understand what they are told or what they should do.
[2021-01-22 22:26] VITALS: PULSE 104
[2021-01-22 22:28] VITALS: BP 130/71; PULSE 80; RESP 20; TEMP 37.1; O2SAT 98
[2021-01-22 22:33] VITALS: BMI 29.1
[2021-01-23] VITALS (8 sets, daily range): BP systolic 114–123; BP diastolic 57–62; PULSE 87–90; RESP 16–20; TEMP 36.2–37.1; O2SAT 97–100
[2021-01-23 00:22] LABS: Troponin I 0.062 ng/mL (0.000-0.034)
[2021-01-23] MEDS: MAGNESIUM OXIDE 400 MG TABLET 800 MG PO (01:43)
[2021-01-23 03:49] LABS: Troponin I 0.062 ng/mL (0.000-0.034)
[2021-01-23] MEDS: chlordiazePOXIDE (*CRX) 25 MG CAPSULE PO ×3 (05:28→18:25)
[2021-01-23] MEDS: ALBUMIN HUMAN 25% 12.5 GM/50ML 50 ML IVPB (05:29)
--- NOTE | 2021-01-23 07:05 | PM.CNNEP ---
Assessment and Plan Assessment and plan (1) Edema: Code(s): R60.9 - Edema, unspecified Status: Acute Assessment and Plan: The patient has edema. This is been coming on for about the last 6 months. Most likely this is due to the cirrhosis. He also has ascites. He has had paracentesis in the past. His albumin is actually pretty good today at 3.9. Other causes to consider would be proteinuria. His urine did not show any of this. Cardiac dysfunction. He does have that as evidenced by an echocardiogram done in November. So this is probably contributory as well. He is currently getting albumin and furosemide. The we could probably stop the albumin. (2) Tobacco dependence: Code(s): F17.200 - Nicotine dependence, unspecified, uncomplicated Status: Acute Assessment and Plan: Patient smokes about a pack a day. Is currently coughing up blood. We probably should get a CT scan of the chest to make sure he does not have pulmonary emboli considering his chest pain with bloody sputum. (3) Alcohol dependence: Code(s): F10.20 - Alcohol dependence, uncomplicated Status: Acute Assessment and Plan: He still drinks 2 shots per day. he may drink more. He has active cirrhosis and its decompensated so he should just stop drinking completely. (4) Cirrhosis: Qualifiers: Ascites presence: with ascites Hepatic cirrhosis type: alcoholic cirrhosis Qualified Code(s): K70.31 - Alcoholic cirrhosis of liver with ascites Code(s): K74.60 - Unspecified cirrhosis of liver Status: Acute Assessment and Plan: This is probably due to drinking but also kept tightest see may be an issue. He has not seen anybody about the hepatitis-C. (5) Chest pain: Qualifiers: Chest pain type: unspecified Qualified Code(s): R07.9 - Chest pain, unspecified Code(s): R07.9 - Chest pain, unspecified Status: Acute Assessment and Plan: This may be musculoskeletal but considering all of his other symptoms will rule out PE. (6) Macrocytic anemia: Code(s): D53.9 - Nutritional anemia, unspecified Status: Acute Assessment and Plan: Most likely due to the alcohol (7) Thrombocytopenia: Code(s): D69.6 - Thrombocytopenia, unspecified Status: Acute Assessment and Plan: Most likely due to the alcohol History of Present Illness Reason for Consult Consult date: 01/23/21 Chief Complaint Chief complaint: Chest Pain, Leg Swelling History of Present Illness Narrative: Abiel is an unfortunate 45-year-old gentleman who has multiple medical problems including chronic tobacco abuse, chronic alcohol use with cirrhosis, hepatitis C, congestive heart failure both diastolic and systolic, drug abuse in remission. The patient came in because he had swelling. He says for the last 6 months he has had gradually worsening swelling. Sometimes it blisters, scabs, and cracks open. He says that he use to scratch it but that just cause bleeding so recently he has just been rubbing it because of the itching this swelling causes and this has improved the skin integrity but he is still swollen. He says he eats a lot of salt. Patient also has had multiple other issues such as occasional dizziness with falling, occasional sharp chest pain which lasts from 1-5 seconds randomly but every day, he always feels cold, he is fatigued and tired. He also coughs up blood every day. The patient has cirrhosis. He was diagnosed with hepatitis-C about a year ago. It is unclear whether hepatitis C or drinking or both have cause the cirrhosis. He used to drink very heavily. Lately though he has been drinking just 2 shots of whiskey per day. He smokes about a pack of cigarettes per day. Review of Systems Constitutional: Constitutional: Reports no additional constitutional complaints Eyes: Eyes: Reports no additional eye complaints ENT: Reports system reviewed and
--- NOTE | 2021-01-23 08:49 | WPDGICN ---
Assessment and Plan Assessment and plan (1) Hematemesis: Code(s): K92.0 - Hematemesis Status: Acute Assessment and Plan: This will be investigated with endoscopy. He believes that much of the blood comes up when he coughs, suggesting it is more respiratory than gastrointestinal (2) Alcohol dependence: Code(s): F10.20 - Alcohol dependence, uncomplicated Status: Acute (3) Cirrhosis: Qualifiers: Ascites presence: with ascites Hepatic cirrhosis type: alcoholic cirrhosis Qualified Code(s): K70.31 - Alcoholic cirrhosis of liver with ascites Code(s): K74.60 - Unspecified cirrhosis of liver Status: Acute Assessment and Plan: his ascites is under control now. Unfortunately he continues to drink. I explained him that this will lead to progressive complications of cirrhosis which may include hepatic encephalopathy and or coma, esophageal varices with possible hemorrhage and renal failure. He was supposed to schedule an EGD after his last hospitalization but failed to do that. I will schedule him for an EGD. I will give vitamin K with hopes that we can get his INR less than 1.6 which would make therapeutic measures such as banding, cautery, or biopsies less likely to cause bleeding. I will order a blood ammonia level (4) Abdominal ascites: Qualifiers: Ascites type: other type Qualified Code(s): R18.8 - Other ascites Code(s): R18.8 - Other ascites Status: Acute Assessment and Plan: on this admission I do not feel a significant fluid wave. He states that he has been faithful about taking his diuretics at home (5) Lymphadenopathy: Code(s): R59.1 - Generalized enlarged lymph nodes Status: Acute Assessment and Plan: he has a tender lymph node in the left submandibular area. Potentially this could be a salivary gland but it is near where he has a sore on the inside of his mouth and on the tongue. I told Him that the oral problems would need to be investigated by dentist or ENT. GI Consult Note Consult date/time: 01/23/21 08:49 HPI: Abiel Alberto is a 45 year old male was admitted this time because of several complaints. He states that it was becoming increasingly difficult to walk, both because of paresthesias ( numbness) in his legs but more so from shooting pains. He also has had increasing swelling in his lower extremities. He is known to have chronic liver disease, cirrhosis due to hepatitis- C. There is a history of IV drug use apparently he continues to drink alcohol regularly. He states that the just prior to admission on a few occasions he brought up some blood. He believes that he coughed it up did not quite vomit blood. He states that he was told when he was discharged from here 2 months ago that he should schedule an outpatient EGD to rule out esophageal varices but he did not get around to doing that. He denies dysphagia or significant heartburn. He denies recent weight loss. His appetite is very good. He has not seen blood in his stools nor has he had black or tarry stools. He states that he does not have a history of alcohol withdrawal syndrome with seizures or anything to that extent. A paracentesis was done during his last hospitalization for diagnostic purposes and revealed a transudate consistent with liver disease. Another complaint is that he has a chipped tooth and therefore has a sore on the lateral aspect of his tongue and pain when he swallows because of the tongue movement. He has also noticed recently of painful spot just below the jaw on the left side Review of Systems Review of Systems: All systems reviewed & are unremarkable except as noted in HPI and below PMFSH Past Medical History Medical History Colon cancer screening Decompensated cirrhosis related to hepatitis C virus (HCV) Drug abuse in remission History of hepatit
[2021-01-23] MEDS: FUROSEMIDE INJ 40 MG/4 ML VIAL IV PUSH ×2 (10:04→18:29)
[2021-01-23] MEDS: PHYTONADIONE 5 MG TABLET 10 MG PO (10:04)
[2021-01-23] MEDS: BETAMETHASONE/CLOTRIMAZOLE CR 15 GM TUBE 1 APPLIC TOPICAL ×2 (10:05→22:07)
[2021-01-23] MEDS: LACTULOSE 20 GM/30 ML UDC PO (10:11)
[2021-01-23 11:11] LABS: Ammonia 60 umol/L (9-30)
--- NOTE | 2021-01-23 12:54 | PC.NURSE ---
This patient, Abiel Alberto, was transferred to [facility] on 01/23/21 at 1245. Personal belongings sent with patient. Report given to Ninfa CASTILLO. Appropriate documentation sent with patient.
--- NOTE | 2021-01-23 15:52 | PM.IMPN ---
Progress Note: A&P Assessment and Plan (1) Decompensated cirrhosis related to hepatitis C virus (HCV): Code(s): B19.20 - Unspecified viral hepatitis C without hepatic coma; K74.69 - Other cirrhosis of liver Status: Acute Assessment and Plan: Patient with anasarca mostly bilateral lower extremities Lasix and albumin Nephrology consult (2) Edema: Code(s): R60.9 - Edema, unspecified Status: Acute Assessment and Plan: Likely secondary to hepatic cirrhosis Placed on fluid restriction diet legs look mildly infected secondary to excoriation add oral keflex and creme to legs (3) Elevated troponin: Code(s): R77.8 - Other specified abnormalities of plasma proteins Status: Acute Assessment and Plan: EKG with no signs of acute SD Likely to be nonischemic myocardial injury (4) Abdominal ascites: Qualifiers: Ascites type: other type Qualified Code(s): R18.8 - Other ascites Code(s): R18.8 - Other ascites Status: Acute Assessment and Plan: Patient had diagnostic paracentesis on prior admission of 500 cc (5) Jaundice: Code(s): R17 - Unspecified jaundice Status: Acute Assessment and Plan: Likely secondary to hepatic cirrhosis Patient current daily drinks alcohol Untreated hepatitis-C chronic (6) Elevated liver enzymes: Code(s): R74.8 - Abnormal levels of other serum enzymes Status: Acute Assessment and Plan: Likely secondary to multifactorial reasons chronic hep C, daily alcohol intake, hepatic cirrhosis. (7) Macrocytic anemia: Code(s): D53.9 - Nutritional anemia, unspecified Status: Acute Assessment and Plan: Likely secondary to alcohol intake Continue to monitor (8) Drug abuse in remission: Code(s): F19.11 - Other psychoactive substance abuse, in remission Status: Acute Assessment and Plan: Patient used to be IV drug use Denies current use of IV drugs (9) Alcohol dependence: Code(s): F10.20 - Alcohol dependence, uncomplicated Status: Acute Assessment and Plan: CIWA protocol (10) Tobacco dependence: Code(s): F17.200 - Nicotine dependence, unspecified, uncomplicated Status: Acute Assessment and Plan: Nicotine patch as needed (11) Hematemesis: Code(s): K92.0 - Hematemesis Status: Acute Assessment and Plan: GI consult Continue to monitor Subjective Date/time seen: 01/23/21 15:52 Interval history: per Admission notes 45-year-old male with past medical history significant for IV drug use, hepatitis-C, hepatic cirrhosis, grade 1 diastolic heart failure, systolic heart failure, ejection fraction 40-45%, patient had recent admission on to [facility] back in November of 2020 was discharged home. Patient comes back today due to worsening bilateral lower extremity edema, bilateral lower extremities paresthesia, hematemesis, decreased appetite, states that always feels cold, patient drinks fire ball daily anywhere between 2-12, his down to less than a pack of cigarettes daily, feeling fatigued and tired, dizzy, has been falling due to his gait being unsteady, he denies any fevers, any rigors, any chills, no shortness of breath, no cough, no sputum production. Pt drinks alcholol every night. Review of Systems Review of Systems: All systems reviewed & are unremarkable except as noted in HPI and below Exam Const: General: cooperative, comfortable, no acute distress, well developed, alert, awake and ill appearing chronically Nutritional Appearance: average body habitus Orientation/consciousness: patient oriented x3 Resp: Effort & Inspection: normal respiratory effort and able to speak in complete sentences Auscultation: clear to auscultation bilaterally, no crackles, no rales, no rhonchi and no wheezes Cardio: Jugular venous distension: no JVD Rate: regular rate Rhythm: regular rhythm Heart sound
[2021-01-23 18:30] LABS: Creatinine Urine 147.9 mg/dL
[2021-01-23 18:47] LABS: Sodium Urine Random 123 meq/L; Total Protein Urine Random < 5 mg/dL; Ur Ttl Prot Creatinine Ratio 0.03 mg/mg (0-0.20)
[2021-01-23] MEDS: CEPHALEXIN 500 MG CAPSULE PO (22:04)
[2021-01-24] VITALS (9 sets, daily range): BP systolic 111–147; BP diastolic 62–86; PULSE 66–99; RESP 16–20; TEMP 36.2–37.1; O2SAT 96–100
--- NOTE | 2021-01-24 05:41 | WPDGICN ---
GI Consult Note Consult date/time: 01/24/21 05:41 HPI: Abiel Alberto is a 45 year old male Who was admitted 5 days ago with complaints of epigastric pain nausea vomiting. His symptoms have persisted. His this all began a few hours after he had had a lunch with fish and then developed the pain that has not let up. Tylenol and ibuprofen did not help at home. Since admission he has required Dilaudid around the clock for relief of his pain. A CT scan was not revealing in terms of anything to explain his pain. He admits to taking quite a bit of NSAIDs regularly. He has been found to have some hepatic steatosis but denies regular use of alcohol. He has also been found to have acute kidney injury with a creatinine in PMFSH Past Medical History Medical History Colon cancer screening Decompensated cirrhosis related to hepatitis C virus (HCV) Drug abuse in remission History of hepatitis C Surgical History Surgical History History of appendectomy History of cholecystectomy Family History Family History Mother Peripheral arterial disease Sibling Diabetes mellitus Other Unknown family medical history Social History Social History Social History: patient smokes 1 pack per day and has done so since he was 15. He drinks 3 days a week and usually drinks 2 mixed drinks with 3 but fireball shots. No IV drugs or street drugs but does do marijuana. He would like to be a full code. In the event of him being unable to him make his own decisions, he elects Clement, his son as his surrogate decision maker. pt does no work Smoking packs per day: 1 Smoking cigarettes per day: 20.0 Years smoked: 30 Smoking pack-years: 30.00 Smoking status: Current every day smoker Tobacco type: cigarettes Second hand tobacco smoke exposure: No Alcohol intake: current Drinks per week: 6 Substance use: current Substance use type: marijuana Gender identity (if verbalized by the patient): Male Spiritual care concerns: No Meds Home Medications and Allergies Home Medications Medication Instructions Recorded Confirmed Type furosemide 40 mg PO DAILY 30 Days #30 tablet 12/01/20 01/22/21 Rx spironolactone 100 mg PO QAM 30 Days #120 tablet 12/01/20 01/22/21 Rx Allergies Allergy/AdvReac Type Severity Reaction Status Date / Time No Known Allergies Allergy Unverified 05/25/17 07:07 Vital Signs Vital Signs - 24 hr 01/23/21 06:00 01/23/21 08:00 01/23/21 14:47 Temperature 37.1 C Pulse Rate 88 90 Respiratory Rate 16 Blood Pressure 117/57 L Pulse Oximetry 100 98 01/23/21 20:00 01/23/21 22:00 01/24/21 00:00 Temperature 36.8 C Pulse Rate 88 Respiratory Rate 16 Blood Pressure 118/61 123/62 122/62 Pulse Oximetry 98 97 Results Labs CBC & Chem 7: 01/22/21 18:22 01/22/21 18:22
[2021-01-24] MEDS: CEPHALEXIN 500 MG CAPSULE PO ×4 (06:07→23:39)
[2021-01-24] MEDS: chlordiazePOXIDE (*CRX) 25 MG CAPSULE PO ×4 (06:07→23:38)
[2021-01-24 06:29] LABS: Basophils Absolute Auto 0.1 K/mm3 (0.0-0.1); Basophils Percent Auto 1.2 % (0.2-1.2); Eosinophils Absolute Auto 0.6 K/mm3 (0-0.3); Eosinophils Percent Auto 8.1 % (0-4.4); Hematocrit 32.4 % (42.0-52.0); Hemoglobin 11.5 g/dL (14.0-18.0); Immature Granulocyte Absolute 0.02 K/mm3 (0.00-0.031); Immature Granulocyte Percent A 0.3 % (0-0.5); Immature Platelet Fraction Pct 13.8 % (0.9-11.2); Lymphocytes Percent Auto 26.2 % (18.3-44.2); Mean Corpuscular HGB Conc 35.5 g/dl (32-36); Mean Corpuscular Hemoglobin 35.4 pg (26-34); Mean Corpuscular Volume 99.7 fl (80-100); Monocytes Absolute Auto 0.9 K/mm3 (0.1-0.6); Monocytes Percent Auto 11.8 % (2.6-8.5); Neutrophils Absolute Auto 3.8 K/mm3 (1.3-6.7); Neutrophils Percent Auto 52.4 % (45.5-73.1); Platelet Count Result 37 k/mm3 (150-375); Red Blood Count 3.25 M/mm3 (4.6-6.20); White Blood Count 7.3 K/mm3 (4.5-10.0)
[2021-01-24 06:54] LABS: Alanine Aminotransferase 65 U/L (4-50); Albumin Level 3.2 g/dL (3.5-5.1); Alkaline Phosphatase 132 U/L (38-126); Anion Gap 6 mmol/L (8-16); Aspartate Amino Transferase 181 U/L (17-59); Bilirubin,Total 8.4 mg/dL (0.2-1.3); Blood Urea Nitrogen 7 mg/dL (9-20); Calcium 8.4 mg/dL (8.4-10.2); Carbon Dioxide 26 mmol/L (22-30); Chloride 103 mmol/L (98-107); Estimated CRCL calculation 138 ml/min; Estimated Glomerular Filt Rate > 60; Glucose 95 mg/dL (65-110); Potassium 3.5 mmol/L (3.4-5.0); Sodium 135 mmol/L (137-145)
[2021-01-24 07:24] LABS: INR 2.1; Prothrombin Time 22.9 Seconds (11.1-14.7)
[2021-01-24] MEDS: BETAMETHASONE/CLOTRIMAZOLE CR 15 GM TUBE 1 APPLIC TOPICAL (08:41)
[2021-01-24] MEDS: FUROSEMIDE INJ 40 MG/4 ML VIAL IV PUSH ×2 (08:42→16:51)
[2021-01-24] MEDS: MAGNESIUM OXIDE 400 MG TABLET PO (08:43)
--- NOTE | 2021-01-24 09:28 | WPDANESEPPF ---
Anes - Initial Pre Proc Eval Procedure: Operation Date: 01/24/21 14:30 Proposed Procedures p Esophagogastroduodenoscopy - Nabil Lucas MD Date/Time: 01/24/21 09:28 Surgeon: Steffany Moses MD Pre Op Diagnosis: Chest Pain, Leg Swelling Patient Data Age: 45 Gender: M Height: 1.8 m Weight: 94.6 kg Last Vital Signs Temp 36.5 C 01/24/21 06:00 Pulse 99 01/24/21 06:00 Resp 18 01/24/21 06:00 BP 125/72 01/24/21 06:00 Pulse Ox 98 01/24/21 06:00 Allergies Allergy/AdvReac Type Severity Reaction Status Date / Time No Known Allergies Allergy Unverified 01/24/21 09:50 Home Medications Medication Instructions Recorded Confirmed Type furosemide 40 mg PO DAILY 30 Days #30 tablet 12/01/20 01/22/21 Rx spironolactone 100 mg PO QAM 30 Days #120 tablet 12/01/20 01/22/21 Rx Laboratory Tests 01/23/21 01/23/21 01/24/21 10:46 18:07 05:52 WBC 7.3 K/mm3 K/mm3 (4.5-10.0) RBC 3.25 M/mm3 L M/mm3 (4.6-6.20) Hgb 11.5 g/dL L g/dL (14.0-18.0) Hct 32.4 % L % (42.0-52.0) MCV 99.7 fl fl (80-100) MCH 35.4 pg H pg (26-34) MCHC 35.5 g/dl g/dl (32-36) RDW 15.0 % H % (11.5-14.5) Plt Count 37 k/mm3 L k/mm3 (150-375) MPV 12.0 fl H fl (7.4-10.4) Immature Gran % (Auto) 0.3 % % (0-0.5) Neut % (Auto) 52.4 % % (45.5-73.1) Lymph % (Auto) 26.2 % % (18.3-44.2) Hayes % (Auto) 11.8 % H % (2.6-8.5) Eos % (Auto) 8.1 % H % (0-4.4) Baso % (Auto) 1.2 % % (0.2-1.2) Lymph # (Auto) 1.90 K/mm3 K/mm3 (0.9-3.2) Hayes # (Auto) 0.9 K/mm3 H K/mm3 (0.1-0.6) Eos # (Auto) 0.6 K/mm3 H K/mm3 (0-0.3) Baso # (Auto) 0.1 K/mm3 K/mm3 (0.0-0.1) Abs Immat Gran (auto) 0.02 K/mm3 K/mm3 (0.00-0.031) Absolute Neuts (auto) 3.8 K/mm3 K/mm3 (1.3-6.7) Absolute Nucleated RBC 0.0 K/mm3 K/mm3 (0.0-0.012) Nucleated RBC % 0.0 % % (0.0-0.2) % Immature Plt Fraction 13.8 % H % (0.9-11.2) PT INR Sodium Potassium Chloride Carbon Dioxide Anion Gap BUN Creatinine Estim Creat Clear Calc Estimated GFR Glucose Calcium Total Bilirubin AST ALT Alkaline Phosphatase Ammonia 60 umol/L H umol/L (9-30) Total Protein Albumin U Random Total Protein < 5 mg/dL mg/dL Ur Random Sodium 123 meq/L meq/L Urine Creatinine 147.9 mg/dL mg/dL Protein/Creat Ratio 2 0.03 mg/mg mg/mg (0-0.20) 01/24/21 01/24/21 05:52 05:52 WBC RBC Hgb Hct MCV MCH MCHC RDW Plt Count MPV Immature Gran % (Auto) Neut % (Auto) Lymph % (Auto) Hayes % (Auto) Eos % (Auto) Baso % (Auto) Lymph # (Auto) Hayes # (Auto) Eos # (Auto) Baso # (Auto) Abs Immat Gran (auto) Absolute Neuts (auto) Absolute Nucleated RBC Nucleated RBC % % Immature Plt Fraction PT 22.9 Seconds H Seconds (11.1-14.7) INR 2.1 Sodium 135 mmol/L L mmol/L (137-145) Potassium 3.5 mmol/L mmol/L (3.4-5.0) Chloride 103 mmol/L mmol/L (98-107) Carbon Dioxide 26 mmol/L mmol/L (22-30) Anion Gap 6 mmol/L L mmol/L (8-16) BUN 7 mg/dL L mg/dL (9-20) Creatinine 0.60 mg/dL L mg/dL (0.7-1.3) Estim Creat Clear Calc 138 ml/min ml/min Estimated GFR > 60 (59 - ) Glucose 95 mg/dL mg/dL (65-110) Calcium 8.4 mg/dL mg/dL (8.4-10.2) Total Bilirubin
--- NOTE | 2021-01-24 09:30 | PM.PNNEP ---
Progress Note: A&P Assessment and Plan (1) Edema: Code(s): R60.9 - Edema, unspecified Status: Acute Assessment and Plan: The patient has edema. This is been coming on for about the last 6 months. urine sodium is low. Thus he has pre renal azotemia. No evidence of pulmonary hypertension. Echocardiogram shows grade 1 diastolic dysfunction and moderate pulmonary hypertension. This may contribute to his edema. He does not have proteinuria. Most likely this is due to the cirrhosis. He also has ascites. He has had paracentesis in the past. His albumin is actually pretty good today at 3.9. most likely his Low urine sodium is because of underfilling due to the cirrhosis. I explained to the patient that his liver is not allowing his kidneys to see the edema. He certainly has cirrhosis in his liver as evidence by the CT. He also has elevated liver enzymes and so may have an element of alcoholic hepatitis or possibly this is from his hepatitis C. hopefully if he stops drinking the reversible aspect may improve and possibly have less swelling as a result. there is no way to know how much of this is acute and how much of this is chronic. Certainly if he does not stop drinking than acute and chronic hepatitis will worsen. (2) Tobacco dependence: Code(s): F17.200 - Nicotine dependence, unspecified, uncomplicated Status: Acute Assessment and Plan: Patient smokes about a pack a day. He is currently coughing up blood. CT angio was negative. Other evaluation? This to the hospitalists. (3) Alcohol dependence: Code(s): F10.20 - Alcohol dependence, uncomplicated Status: Acute Assessment and Plan: He still drinks 2 shots per day. he may drink more. He has active cirrhosis and its decompensated so he should just stop drinking completely. (4) Cirrhosis: Qualifiers: Ascites presence: with ascites Hepatic cirrhosis type: alcoholic cirrhosis Qualified Code(s): K70.31 - Alcoholic cirrhosis of liver with ascites Code(s): K74.60 - Unspecified cirrhosis of liver Status: Acute Assessment and Plan: This is probably due to drinking but also Hepatitis C may be an issue. He has not seen anybody about the hepatitis-C. (5) Chest pain: Qualifiers: Chest pain type: unspecified Qualified Code(s): R07.9 - Chest pain, unspecified Code(s): R07.9 - Chest pain, unspecified Status: Acute Assessment and Plan: This may be musculoskeletal but considering all of his other symptoms will rule out PE. (6) Macrocytic anemia: Code(s): D53.9 - Nutritional anemia, unspecified Status: Acute Assessment and Plan: Most likely due to the alcohol (7) Thrombocytopenia: Code(s): D69.6 - Thrombocytopenia, unspecified Status: Acute Assessment and Plan: Most likely due to the alcohol Subjective Date/time seen: 01/24/21 09:30 Interval history: Abiel is feeling a little bit better today. He still is swollen. Review of Systems Cardiovascular: Cardiovascular: Reports no additional cardiovascular complaints Respiratory: Respiratory: Reports no additional respiratory complaints Gastrointestinal: Gastrointestinal: Reports no additional gastrointestinal complaints Genitourinary: Genitourinary: Reports no additional male genitourinary complaints Exam Narrative: WDWN in NAD skin no rash head ncat lungs clear cor reg no rub abd BS+ nontender and soft ext 2+ symmetric edema. Objective Data Vital Signs Vital Signs: Vital Signs - 24 hr 01/23/21 14:47 01/23/21 20:00 01/23/21 22:00 Temperature 36.8 C Pulse Rate 88 Respiratory Rate 16 Blood Pressure 118/61 123/62 Pulse Oximetry 98 98 97 01/24/21 00:00 01/24/21 06:00 Temperature 36.5 C Pulse Rate 99 Respiratory Rate 18 Blood Pressure 122/62 125/72 Pulse Oximetry 98 Intake/Output Intake/Output: I
--- NOTE | 2021-01-24 09:39 | PC.NURSE ---
to GI lab per kerry
[2021-01-24] MEDS: LACTATED RINGERS 1,000 ML 150 ML IV CONT (09:55)
[2021-01-24] MEDS: LACTULOSE 20 GM/30 ML UDC PO (11:46)
--- NOTE | 2021-01-24 17:05 | PM.IMPN ---
Progress Note: A&P Assessment and Plan (1) Decompensated cirrhosis related to hepatitis C virus (HCV): Code(s): B19.20 - Unspecified viral hepatitis C without hepatic coma; K74.69 - Other cirrhosis of liver Status: Acute Assessment and Plan: Patient with anasarca mostly bilateral lower extremities. Continue lasix and albumin. Nephrology consult. Referral to hepatology as an outpatient. (2) Edema: Code(s): R60.9 - Edema, unspecified Status: Acute Assessment and Plan: Likely secondary to hepatic cirrhosis Placed on fluid restriction diet Legs look mildly infected secondary to excoriation; continue oral keflex and apply cream to legs (3) Elevated troponin: Code(s): R77.8 - Other specified abnormalities of plasma proteins Status: Acute Assessment and Plan: EKG with no signs of acute NV Likely to be nonischemic myocardial injury (4) Abdominal ascites: Qualifiers: Ascites type: other type Qualified Code(s): R18.8 - Other ascites Code(s): R18.8 - Other ascites Status: Acute Assessment and Plan: Patient had diagnostic paracentesis on prior admission of 500 cc. (5) Jaundice: Code(s): R17 - Unspecified jaundice Status: Acute Assessment and Plan: Likely secondary to hepatic cirrhosis Patient current daily drinks alcohol Untreated hepatitis-C chronic (6) Elevated liver enzymes: Code(s): R74.8 - Abnormal levels of other serum enzymes Status: Acute Assessment and Plan: Likely secondary to multifactorial reasons chronic hep C, daily alcohol intake, hepatic cirrhosis. (7) Macrocytic anemia: Code(s): D53.9 - Nutritional anemia, unspecified Status: Acute Assessment and Plan: Give folate and B12 suppplementation Likely secondary to alcohol intake Continue to monitor (8) Drug abuse in remission: Code(s): F19.11 - Other psychoactive substance abuse, in remission Status: Acute Assessment and Plan: Patient used to be IV drug user Denies current use of IV drugs (9) Alcohol dependence: Code(s): F10.20 - Alcohol dependence, uncomplicated Status: Acute Assessment and Plan: Continue CIWA protocol (10) Tobacco dependence: Code(s): F17.200 - Nicotine dependence, unspecified, uncomplicated Status: Acute Assessment and Plan: Nicotine patch as needed (11) Hematemesis: Code(s): K92.0 - Hematemesis Status: Acute Assessment and Plan: GI consult done EGD: non bleeding esophageal varices Gastritis Continue to monitor Subjective Date/time seen: 01/24/21 17:05 S: Abiel is feeling a little bit better today. Interval history: He reports bilateral lower extremity skin pain and chest pain from procedure. He still is swollen. Review of Systems Review of Systems: All systems reviewed & are unremarkable except as noted in HPI and below Constitutional: Constitutional: Reports chills, Reports fatigue, Denies fever(s), Reports frequent falls, Reports lethargy, Denies night sweats, Reports weakness and Reports weight gain Eyes: Eyes: Denies change in vision ENT: Denies dysphagia, Denies nasal congestion, Denies nasal discharge, Denies nasal obstruction and Denies odynophagia Cardiovascular: Cardiovascular: Reports edema, Denies irregular heart rhythm, Reports leg edema, Reports lightheadedness, Denies radiating jaw, neck or arm pain, Denies palpitations, Denies dyspnea, Denies dyspnea on exertion and Denies orthopnea Respiratory: Respiratory: Denies change in phlegm color, Denies cough, Denies excessive phlegm production, Denies dyspnea, Denies dyspnea on exertion and Denies wheezing Gastrointestinal: Gastrointestinal: Reports abdominal pain, Denies melena, Denies dysphagia, Denies dyspepsia, Denies heartburn, Reports nausea, Denies odynophagia, Reports vomiting and Reports hematemesis Genitourinary: Genitourinary: R
[2021-01-24] MEDS: EUCERIN CREAM 120 GM JAR 1 APPLIC TOPICAL (18:22)
[2021-01-24] MEDS: PANTOPRAZOLE 40 MG TABLET PO (18:23)
[2021-01-25] MEDS: chlordiazePOXIDE (*CRX) 25 MG CAPSULE PO ×2 (05:13→12:17)
[2021-01-25] MEDS: CEPHALEXIN 500 MG CAPSULE PO ×2 (05:14→12:17)
[2021-01-25 06:00] VITALS: BP 129/68; PULSE 82; RESP 16; TEMP 36.4; O2SAT 98
[2021-01-25 06:54] LABS: Alanine Aminotransferase 60 U/L (4-50); Alkaline Phosphatase 135 U/L (38-126); Anion Gap 8 mmol/L (8-16); Aspartate Amino Transferase 148 U/L (17-59); Bilirubin Direct 0.7 mg/dL (0-0.3); Bilirubin,Total 7.5 mg/dL (0.2-1.3); Blood Urea Nitrogen 8 mg/dL (9-20); Calcium 8.1 mg/dL (8.4-10.2); Carbon Dioxide 21 mmol/L (22-30); Chloride 106 mmol/L (98-107); Estimated CRCL calculation 120 ml/min; Estimated Glomerular Filt Rate > 60; Glucose 94 mg/dL (65-110); Phosphorus 3.5 mg/dL (2.5-4.5); Potassium 3.7 mmol/L (3.4-5.0); Sodium 135 mmol/L (137-145)
[2021-01-25] MEDS: LACTULOSE 20 GM/30 ML UDC PO (08:44)
[2021-01-25] MEDS: BETAMETHASONE/CLOTRIMAZOLE CR 15 GM TUBE 1 APPLIC TOPICAL (08:45)
[2021-01-25] MEDS: PANTOPRAZOLE 40 MG TABLET PO (08:45)
[2021-01-25] MEDS: MAGNESIUM OXIDE 400 MG TABLET PO (08:45)
[2021-01-25] MEDS: FUROSEMIDE INJ 40 MG/4 ML VIAL IV PUSH (08:45)
[2021-01-25] MEDS: FOLIC ACID 1 MG TABLET PO (08:45)
[2021-01-25] MEDS: CYANOCOBALAMIN 1,000 MCG TABLET 1000 MCG PO (08:45)
[2021-01-25 08:46] VITALS: PULSE 82
[2021-01-25] MEDS: EUCERIN CREAM 120 GM JAR 1 APPLIC TOPICAL (08:46)
[2021-01-25] MEDS: nadoloL 20 MG TABLET PO (08:46)
--- NOTE | 2021-01-25 09:01 | WPDANESPN ---
Anes - Prog Note Post-Op Date/Time: 01/25/21 09:01 Cardiovascular status: normal Respiratory status: normal Airway patency: baseline Mental status: baseline Post-Op hydration status: normal Vital Signs: Last Vital Signs Temp 97.6 F 01/25/21 06:00 Pulse 82 01/25/21 08:46 Resp 16 01/25/21 06:00 BP 129/68 01/25/21 06:00 Pulse Ox 98 01/25/21 06:00 Pain Score (VAS): 0/10 I/O: Intake & Output 01/24/21 01/25/21 01/25/21 23:59 07:59 15:59 Intake Total 790 100 120 Output Total 600 1000 Balance 190 -900 120 Laboratory Tests 01/24/21 05:52 01/25/21 05:58 01/25/21 05:58 Sodium 135 L Potassium 3.7 Chloride 106 Carbon Dioxide 21 L Anion Gap 8 BUN 8 L Creatinine 0.70 Estim Creat Clear Calc 120 Estimated GFR > 60 Glucose 94 Calcium 8.1 L Phosphorus 3.5 Total Bilirubin 7.5 H Direct Bilirubin 0.7 H AST 148 H ALT 60 H Alkaline Phosphatase 135 H Total Protein 7.0 Albumin 3.0 L Post-procedural complaints: none Patient Feedback: Patient satisfied with anesthetic care.
--- NOTE | 2021-01-25 10:01 | PM.IMPN ---
Progress Note: A&P Assessment and Plan (1) Cirrhosis: Code(s): K74.60 - Unspecified cirrhosis of liver Status: Acute (2) Alcohol dependence: Code(s): F10.20 - Alcohol dependence, uncomplicated Status: Acute Assessment and Plan: Continue CIWA protocol (3) Leg swelling: Code(s): M79.89 - Other specified soft tissue disorders Status: Acute (4) Decompensated cirrhosis related to hepatitis C virus (HCV): Code(s): B19.20 - Unspecified viral hepatitis C without hepatic coma; K74.69 - Other cirrhosis of liver Status: Acute Assessment and Plan: Patient with edema mostly bilateral lower extremities. Continue lasix and albumin. Nephrology consult. Referral to hepatology as an outpatient. (5) Edema: Code(s): R60.9 - Edema, unspecified Status: Acute Assessment and Plan: Likely secondary to hepatic cirrhosis Placed on fluid restriction diet Legs look mildly infected secondary to excoriation; continue oral keflex and apply cream to legs (6) Elevated troponin: Code(s): R77.8 - Other specified abnormalities of plasma proteins Status: Acute Assessment and Plan: EKG with no signs of acute TX Likely to be nonischemic myocardial injury (7) Abdominal ascites: Qualifiers: Ascites type: other type Qualified Code(s): R18.8 - Other ascites Code(s): R18.8 - Other ascites Status: Acute Assessment and Plan: Patient had diagnostic paracentesis on prior admission of 500 cc. (8) Jaundice: Code(s): R17 - Unspecified jaundice Status: Acute Assessment and Plan: Likely secondary to hepatic cirrhosis Patient current daily drinks alcohol Untreated hepatitis-C chronic (9) Elevated liver enzymes: Code(s): R74.8 - Abnormal levels of other serum enzymes Status: Acute Assessment and Plan: Likely secondary to multifactorial reasons chronic hep C, daily alcohol intake, hepatic cirrhosis. (10) Macrocytic anemia: Code(s): D53.9 - Nutritional anemia, unspecified Status: Acute Assessment and Plan: Give folate and B12 suppplementation Likely secondary to alcohol intake Continue to monitor (11) Drug abuse in remission: Code(s): F19.11 - Other psychoactive substance abuse, in remission Status: Acute Assessment and Plan: Patient used to be IV drug user Denies current use of IV drugs (12) Tobacco dependence: Code(s): F17.200 - Nicotine dependence, unspecified, uncomplicated Status: Acute Assessment and Plan: Nicotine patch as needed (13) Hematemesis: Code(s): K92.0 - Hematemesis Status: Acute Assessment and Plan: GI consult done EGD: non bleeding esophageal varices Gastritis Continue to monitor Subjective Date/time seen: 01/25/21 10:01 S: Patient is examined at the bedside. He is feeling much better. HE is counselled about ETOH cessation. Review of Systems Review of Systems: All systems reviewed & are unremarkable except as noted in HPI and below Constitutional: Constitutional: Reports no additional constitutional complaints Eyes: Eyes: Reports no additional eye complaints ENT: Reports system reviewed and no additional complaints, except as documented Cardiovascular: Cardiovascular: Reports no additional cardiovascular complaints Respiratory: Respiratory: Reports no additional respiratory complaints Gastrointestinal: Gastrointestinal: Reports no additional gastrointestinal complaints Genitourinary: Genitourinary: Reports no additional male genitourinary complaints Musculoskeletal: Musculoskeletal: Reports no additional musculoskeletal complaints Integumentary/Breasts: Skin/Breast: Reports system reviewed and no additional complaints, except as docu Neurologic: Reports system reviewed and no additional complaints, except as documented Psychiatric: Psychiatric: Reports no additional psyc
--- NOTE | 2021-01-25 10:42 | PM.PNNEP ---
Progress Note: A&P Assessment and Plan (1) Edema: Code(s): R60.9 - Edema, unspecified Status: Acute Assessment and Plan: The patient has edema. This is been coming on for about the last 6 months. urine sodium is low. Thus he has pre renal azotemia. Most likely edema is due to cirrhosis and possibly contribution from the pulmonary hypertension. Swelling is getting better with the diuretics. (2) Tobacco dependence: Code(s): F17.200 - Nicotine dependence, unspecified, uncomplicated Status: Acute Assessment and Plan: Patient smokes about a pack a day. He is currently coughing up blood. CT angio was negative. Other evaluation? I will leave this to the hospitalists. (3) Alcohol dependence: Code(s): F10.20 - Alcohol dependence, uncomplicated Status: Acute Assessment and Plan: He still drinks 2 shots per day. he may drink more. He has active cirrhosis and its decompensated so he should just stop drinking completely. (4) Cirrhosis: Qualifiers: Ascites presence: with ascites Hepatic cirrhosis type: alcoholic cirrhosis Qualified Code(s): K70.31 - Alcoholic cirrhosis of liver with ascites Code(s): K74.60 - Unspecified cirrhosis of liver Status: Acute Assessment and Plan: This is probably due to drinking but also Hepatitis C may be an issue. He has not seen anybody about the hepatitis-C. AST is coming down so possible alcoholic hepatitis is improving. (5) Chest pain: Qualifiers: Chest pain type: unspecified Qualified Code(s): R07.9 - Chest pain, unspecified Code(s): R07.9 - Chest pain, unspecified Status: Acute Assessment and Plan: This may be musculoskeletal CT PE was negative (6) Macrocytic anemia: Code(s): D53.9 - Nutritional anemia, unspecified Status: Acute Assessment and Plan: Most likely due to the alcohol (7) Thrombocytopenia: Code(s): D69.6 - Thrombocytopenia, unspecified Status: Acute Assessment and Plan: Most likely due to the alcohol Subjective Date/time seen: 01/25/21 10:42 Interval history: Abiel is feeling better. His swelling is better. Exam Narrative: WDWN in NAD skin no rash head ncat lungs clear cor reg no rub abd BS+ nontender and soft ext 1-2+ symmetric edema. Objective Data Vital Signs Vital Signs: Vital Signs - 24 hr 01/24/21 10:58 01/24/21 11:08 01/24/21 11:18 Temperature Pulse Rate 89 76 78 Respiratory Rate 18 16 16 Blood Pressure 147/86 H 125/75 126/72 Pulse Oximetry 98 100 100 01/24/21 14:00 01/24/21 20:00 01/24/21 22:00 Temperature 36.8 C 36.2 C L Pulse Rate 85 94 Respiratory Rate 17 18 Blood Pressure 111/63 141/70 H Pulse Oximetry 99 96 96 01/25/21 06:00 01/25/21 08:46 Temperature 36.4 C Pulse Rate 82 82 Respiratory Rate 16 Blood Pressure 129/68 Pulse Oximetry 98 Intake/Output Intake/Output: Intake & Output 01/22/21 01/23/21 01/24/21 01/25/21 23:59 23:59 23:59 23:59 Intake Total 980 1480 220 Output Total 650 1100 1000 Balance 330 380 -780 Meds/Results Medications: Active Medications Generic Name Dose Route Start Last Admin Trade Name Yoav PRN Reason Stop Dose Admin Cephalexin HCl 500 mg 01/24/21 00:00 01/25/21 05:14 Cephalexin 500 Mg Capsule PO 500 mg Q6HR JASPAL Administration Chlordiazepoxide HCl 25 mg 01/23/21 06:00 01/25/21 05:13 Chlordiazepoxide (*Crx) 25 Mg Capsule PO 25 mg Q6HR JASPAL Administration Clotrimazole 1 applic 01/23/21 09:00 01/25/21 08:45 Betamethasone/Clotrimazole Cr 15 Gm Tube TOPICAL 1 applic Q12HR JASPAL Administration Cyanocobalamin 1,000 mcg 01/25/21 09:00 01/25/21 08:45 Cyanocobalamin 1,000 Mcg Tablet PO 1,000 mcg QAM JASPAL Administration Folic Acid 1 mg 01/25/21 09:00 01/25/21 08:45 Folic Acid 1 Mg Tablet PO 1 mg DAILY JASPAL Administration Furosemide
[2021-01-25 10:50] LABS: Anion Gap 8 mmol/L (8-16); Blood Urea Nitrogen 9 mg/dL (9-20); Calcium 8.4 mg/dL (8.4-10.2); Carbon Dioxide 21 mmol/L (22-30); Chloride 106 mmol/L (98-107); Estimated CRCL calculation 106 ml/min; Estimated Glomerular Filt Rate > 60; Glucose 155 mg/dL (65-110); Potassium 3.6 mmol/L (3.4-5.0); Sodium 135 mmol/L (137-145)
[2021-01-25 10:52] LABS: Hematocrit 35.4 % (42.0-52.0); Immature Platelet Fraction Pct 16.5 % (0.9-11.2); Mean Corpuscular HGB Conc 33.9 g/dl (32-36); Mean Corpuscular Hemoglobin 35.7 pg (26-34); Mean Corpuscular Volume 105.4 fl (80-100); Mean Platelet Volume 13.5 fl (7.4-10.4); Platelet Count Result 37 k/mm3 (150-375); Red Blood Count 3.36 M/mm3 (4.6-6.20); Red Cell Distribution Width 15.3 % (11.5-14.5); White Blood Count 6.4 K/mm3 (4.5-10.0)
--- NOTE | 2021-01-25 13:11 | PM.DS ---
DS: Admitting Diagnosis Discharge Date 01/25/2021 Admitting Diagnosis Decompensated cirrhosis due to hepatitis C. DS: Discharge Diagnosis Discharge Diagnosis (1) Cirrhosis: Code(s): K74.60 - Unspecified cirrhosis of liver Status: Acute (2) Alcohol dependence: Code(s): F10.20 - Alcohol dependence, uncomplicated Status: Acute Assessment and Plan: Continue CIWA protocol (3) Leg swelling: Code(s): M79.89 - Other specified soft tissue disorders Status: Acute (4) Decompensated cirrhosis related to hepatitis C virus (HCV): Code(s): B19.20 - Unspecified viral hepatitis C without hepatic coma; K74.69 - Other cirrhosis of liver Status: Acute Assessment and Plan: Patient with anasarca mostly bilateral lower extremities. Continue lasix and albumin. Nephrology consult. Referral to hepatology as an outpatient. (5) Edema: Code(s): R60.9 - Edema, unspecified Status: Acute Assessment and Plan: Likely secondary to hepatic cirrhosis Placed on fluid restriction diet Legs look mildly infected secondary to excoriation; continue oral keflex and apply cream to legs (6) Elevated troponin: Code(s): R77.8 - Other specified abnormalities of plasma proteins Status: Acute Assessment and Plan: EKG with no signs of acute MS Likely to be nonischemic myocardial injury (7) Abdominal ascites: Qualifiers: Ascites type: other type Qualified Code(s): R18.8 - Other ascites Code(s): R18.8 - Other ascites Status: Acute Assessment and Plan: Patient had diagnostic paracentesis on prior admission of 500 cc. (8) Jaundice: Code(s): R17 - Unspecified jaundice Status: Acute Assessment and Plan: Likely secondary to hepatic cirrhosis Patient current daily drinks alcohol Untreated hepatitis-C chronic (9) Elevated liver enzymes: Code(s): R74.8 - Abnormal levels of other serum enzymes Status: Acute Assessment and Plan: Likely secondary to multifactorial reasons chronic hep C, daily alcohol intake, hepatic cirrhosis. (10) Macrocytic anemia: Code(s): D53.9 - Nutritional anemia, unspecified Status: Acute Assessment and Plan: Give folate and B12 suppplementation Likely secondary to alcohol intake Continue to monitor (11) Drug abuse in remission: Code(s): F19.11 - Other psychoactive substance abuse, in remission Status: Acute Assessment and Plan: Patient used to be IV drug user Denies current use of IV drugs (12) Tobacco dependence: Code(s): F17.200 - Nicotine dependence, unspecified, uncomplicated Status: Acute Assessment and Plan: Nicotine patch as needed (13) Hematemesis: Code(s): K92.0 - Hematemesis Status: Acute Assessment and Plan: GI consult done EGD: non bleeding esophageal varices Gastritis Continue to monitor DS: Summary Hospital Course Reason for hospitalization: bilateral leg swelling Hospital Course: Narrative: This is a 45-year-old male with past medical history significant for IV drug use, hepatitis-C, hepatic cirrhosis, grade 1 diastolic heart failure, systolic heart failure, ejection fraction 40-45%, patient had recent admission on to [facility] back in November of 2020 was discharged home. Patient comes back today due to worsening bilateral lower extremity edema, bilateral lower extremities paresthesia, hematemesis, decreased appetite, states that always feels cold, patient drinks fire ball daily anywhere between 2-12, his down to less than a pack of cigarettes daily, feeling fatigued and tired, dizzy, has been falling due to his gait being unsteady, he denies any fevers, any rigors, any chills, no shortness of breath, no cough, no sputum production. Patient also has had multiple other issues such as occasional dizziness with falling, occasional sharp chest pain which lasts from 1-5 seconds
== END 2021-01-25 14:00 | disposition home or self-care (01) ==
LOC: ANHED 19:01 → ANHIMU 21:45 → ANH3MEDSUR 01-23 12:48
PROVIDERS: Emergency Medicine; Internal Medicine Gastroenterology; Internal Medicine Nephrology; Admitting Provider Internal Medicine; Emergency Provider Emergency Medicine; PCP Internal Medicine Infectious Disease; Visit Provider Internal Medicine
PROC: 0DJ08ZZ Inspection of Upper Intestinal Tract, Via Natural or Artificial Opening Endoscopic (ICD-10-PCS; CPT 43235; principal; 2021-01-24 14:30)
DX: B18.2 Chronic viral hepatitis C (principal); K70.31 Alcoholic cirrhosis of liver with ascites; K92.0 Hematemesis; F10.20 Alcohol dependence, uncomplicated; F17.200 Nicotine dependence, unspecified, uncomplicated; K29.20 Alcoholic gastritis without bleeding; I85.00 Esophageal varices without bleeding; R07.89 Other chest pain; D53.8 Other specified nutritional anemias; D69.59 Other secondary thrombocytopenia; I50.42 Chronic combined systolic (congestive) and diastolic (congestive) heart failure; I27.20 Pulmonary hypertension, unspecified; I5A Non-ischemic myocardial injury (non-traumatic); L03.116 Cellulitis of left lower limb; L03.115 Cellulitis of right lower limb; R59.1 Generalized enlarged lymph nodes; Z90.49 Acquired absence of other specified parts of digestive tract
CPT/HCPCS: 36415; 71275; 80048; 80053; 80069; 80076; 81001; 82140; 82570; 84156; 84300; 84484; 85025; 85027; 85055; 85610; 85730; 87081; 93005; 96365; 96374; 96375; 96376; 99285; A9270; G0378; G0379; J1940; J2704; J7120; P9047; Q9967

== ENCOUNTER 2021-04-15 16:54 | Inpatient (IN) | payer OTHER, SELFPAY ==
[2021-04-15] VITALS (10 sets, daily range): BP systolic 104–125; BP diastolic 55–70; PULSE 80–109; RESP 14–26; TEMP 35.7; O2SAT 95–98
--- NOTE | ~2021-04-15 | CT_ITS ---
EXAMINATION: CT chest abdomen pelvis wo con DATE: 04/19/2021 15:09 INDICATION: Sepsis. TECHNIQUE: Computed tomography (CT) of the chest, abdomen, and pelvis was performed without intraveno us contrast. Automated exposure control and iterative reconstruction technique were employed. The dos e-length product was 1856.30 mGy-cm. COMPARISON: CT abdomen and pelvis 04/15/2021 FINDINGS: CHEST CT: Motion artifact is noted. There are patchy groundglass opacities in right upper lobe and right middle lobe. There are patchy airspace and groundglass opacities in left upper lobe. There are confluent ai rspace opacities with volume loss and air bronchograms involving left lower lobe. There is smooth sep zaira thickening in the lungs. There are small pleural effusions. Cardiomegaly is noted. No pericardial effusion. There is bilateral gynecomastia. There is moderate thoracic spondylosis. ABDOMEN/PELVIS CT: The liver demonstrates hypertrophy of left lateral segment and atrophy of medial segment, consistent with cirrhosis. There is mild splenomegaly. There are changes of cholecystectomy. The pancreas, adren al glands, and kidneys are normal. There are no dilated loops of bowel. There is a large volume of st ool in the ascites. There is edema of the intra-abdominal fat and body wall fat. There is a moderate- sized sliding hiatal hernia. There is a splenorenal portacaval shunt. There is mild periportal lympha denopathy, likely reactive. There is mild lumbar spondylosis. IMPRESSION: 1. Cirrhosis of the liver with portal venous hypertension. 2. Large volume of ascites. 3. Multifocal lung disease, likely a combination of pneumonia and mild pulmonary edema. 4. Small pleural effusions. 5. Moderate-sized sliding hiatal hernia. Reviewed, dictated and finalized at location B. ARCH/PROGRAM DIRECTOR IMPRESSION: 1. Cirrhosis of the liver with portal venous hypertension. 2. Large volume of ascites. 3. Multifocal lung disease, likely a combination of pneumonia and mild pulmonar y edema. 4. Small pleural effusions. 5. Moderate-sized sliding hiatal hernia.
--- NOTE | ~2021-04-15 | US_ITS ---
EXAMINATION: US abdomen limited DATE: 04/16/2021 08:23 INDICATION: Liver failure. Elevated bilirubin. TECHNIQUE: Multiple grayscale and Doppler ultrasound images of the abdomen were obtained. COMPARISON: CT abdomen and pelvis 04/15/2021 FINDINGS: The visualized portion of the head of the pancreas is normal. The liver demonstrates diffus coco heterogeneous echogenicity and surface nodularity, consistent with cirrhosis. Main portal vein is patent. The gallbladder is absent. The common duct is normal and measures 6 mm. There is a small vol ume of perihepatic ascites. IMPRESSION: 1. Cirrhosis of the liver. 2. Small volume of perihepatic ascites. Reviewed, dictated and finalized at location B. CUTTER DIAMOND
--- NOTE | ~2021-04-15 | US_ITS ---
EXAMINATION: US renal BI DATE: 04/16/2021 08:25 INDICATION: Acute renal insufficiency TECHNIQUE: Multiple ultrasound grayscale images of the kidneys were obtained. COMPARISON: None. FINDINGS: The right kidney measures 13.3 x 5.5 x 5.2 cm. The left kidney measures 12.6 x 5.2 x 5.8 cm. The kidn eys demonstrate normal echogenicity. There is no hydronephrosis in either kidney. No stones identifi ed. The bladder is normal. Small amount of perihepatic ascites in the right upper quadrant. There is cirrhosis with subtle liver surface nodularity. IMPRESSION: 1. Normal kidneys without hydronephrosis. 2. Cirrhosis small amount of perihepatic ascites. Reviewed, dictated and finalized at location A. RONMENTAL ADVISER
--- NOTE | ~2021-04-15 | XR_ITS ---
EXAMINATION: XR chest 1V portable INDICATION: Altered mental status TECHNIQUE: Portable AP chest at 1944 hours COMPARISON: 11/29/2020 FINDINGS: Cardiomegaly is noted. There are diffuse interstitial and airspace opacities. No pleural ef fusion or pneumothorax is identified. IMPRESSION: 1. Diffuse interstitial and airspace opacities consistent with pulmonary edema and/or pneumonia. 2. Cardiomegaly. Reviewed, dictated and finalized at location F. AL GROOMER
--- NOTE | ~2021-04-15 | XR_ITS ---
EXAMINATION: XR chest 1V portable DATE: 04/17/2021 08:57 INDICATION: Pneumonia TECHNIQUE: frontal view of the chest was obtained. COMPARISON: Chest radiograph dated 04/15/2021 FINDINGS: Mild linear discoid atelectasis at the lateral left lower lung zone. No other airspace opacities, pul monary edema, pleural effusion or pneumothorax. The cardiomediastinal silhouette is within normal gutierrez its for AP technique. Old healed fracture at the lateral left clavicle. IMPRESSION: 1. Mild left basilar atelectasis. No other acute cardiopulmonary disease. Reviewed, dictated and finalized at location A. COUNSELOR
--- NOTE | ~2021-04-15 | US_ITS ---
EXAMINATION: US paracentesis abd w/image DATE: 04/16/2021 15:03 INDICATION: Cirrhosis with ascites and spontaneous bacterial peritonitis TECHNIQUE: The procedure and its risks and benefits were discussed with the patient. Potential risks discussed included bleeding and infection. The skin was prepped and draped in sterile fashion. 1% lid ocaine was used for local anesthesia. Under ultrasound guidance, a 5 Fr catheter with trochar was adv anced into the ascites in the right upper quadrant. Fluid was aspirated into vacuum bottles. The cath eter was removed, and a dressing was applied. There were no immediate complications. FINDINGS: Ultrasound images demonstrate ascites and the catheter within the fluid. IMPRESSION: 1. Successful ultrasound-guided paracentesis yielding 500 mL of clear jv-colored fluid. Reviewed, dictated and finalized at location A. DRIVER IMPRESSION: 1. Successful ultrasound-guided paracentesis yielding 500 mL of clear jv-co lored fluid.
--- NOTE | ~2021-04-15 | CT_ITS ---
EXAMINATION: CT brain wo con DATE: 04/15/2021 21:58 INDICATION: Altered mental status. TECHNIQUE: Computed tomography (CT) of the head was performed without intravenous contrast. The mA wa s adjusted according to patient size. Iterative reconstruction technique was employed. The dose-lengt h product was 605.33 mGy-cm. COMPARISON: Head CT 11/30/2020 FINDINGS: There is no intracranial hemorrhage, acute infarction, or abnormal intracranial mass lesion . There are scattered areas of low attenuation in the cerebral white matter, which is within normal l imits for the patient's age. The ventricles are normal in size. There is mucosal thickening in the pa ranasal sinuses. There are likely changes of left ocular lens replacement surgery. The mastoid air ce lls are normal. IMPRESSION: 1. Normal aging brain. Reviewed, dictated and finalized at location B. ENT REGISTRATION REP IMPRESSION: 1. Normal aging brain.
--- NOTE | ~2021-04-15 | CT_ITS ---
EXAMINATION: CT abdomen pelvis wo con DATE: 04/15/2021 21:58 INDICATION: Jaundice. Ascites. TECHNIQUE: Computed tomography (CT) of the abdomen and pelvis was performed without intravenous contr ast. Automated exposure control and iterative reconstruction technique were employed. The dose-length product was 1121.27 mGy-cm. COMPARISON: CT abdomen and pelvis 11/30/2020 FINDINGS: The visualized portions of the lung bases demonstrate mild atelectasis. There are trace ple ural effusions. The heart size is normal. No pericardial effusion. Bilateral gynecomastia is noted. T here is a small sliding hiatal hernia. Paraesophageal varices are noted. The liver demonstrates a nod ular surface contour, consistent with cirrhosis. There are changes of cholecystectomy. There is mild splenomegaly. The pancreas, adrenal glands, and left kidney are normal. There is a 1 mm stone in righ t kidney. There is wall thickening throughout the colon. The appendix is not visualized. There are no dilated loops of bowel. There is wall thickening of some small bowel loops. There is widespread stra nding of the intra-abdominal fat, consistent with edema. There is a portacaval shunt to the left josé l vein. There is mild abdominal lymphadenopathy, likely reactive. There is a small volume of perihepa tic ascites. Body wall edema is noted. There is mild thoracolumbar spondylosis. IMPRESSION: 1. Cirrhosis of the liver with portal venous hypertension. 2. Small volume of ascites. 3. Wall thickening throughout the colon involving some small bowel loops, consistent with interstitia l edema versus enterocolitis. Reviewed, dictated and finalized at location B. LING SPECIALIST IMPRESSION: 1. Cirrhosis of the liver with portal venous hypertension. 2. Small volume of ascites. 3. Wall thickening throughout the colon involving some small bowel loops, consi stent with interstitial edema versus enterocolitis.
--- NOTE | 2021-04-15 18:30 | ECG_ITS ---
Measurements Intervals [place] Rate: 98 P: 76 ID: [id number] QRS: -3 QRSD: 102 T: 61 QT: 381 QTc: 487 Interpretive Statements SINUS RHYTHM DELAYED PRECORDIAL R/S TRANSITION CONSIDER INFERIOR INFARCT, AGE INDETERMINATE BORDERLINE ST-T WAVE ABNORMALITY- LAT/HIGH LAT LEADS BASELINE WANDER- II, III, AVR, AVL, AVF, V1-V2 ABNORMAL ECG Electronically Signed On 04-15-2021 20:01:02 [address] [employer] by Blaise Hill D.O.
[2021-04-15 19:33] LABS: Hematocrit 33.2 % (42.0-52.0); Hemoglobin 11.6 g/dL (14.0-18.0); Mean Corpuscular HGB Conc 34.9 g/dl (32-36); Mean Corpuscular Hemoglobin 34.7 pg (26-34); Mean Corpuscular Volume 99.4 fl (80-100); Platelet Count Result 88 k/mm3 (150-375); Red Blood Count 3.34 M/mm3 (4.6-6.20); Red Cell Distribution Width 16.6 % (11.5-14.5); White Blood Count 40.1 K/mm3 (4.5-10.0)
--- NOTE | 2021-04-15 19:35 | ED.GENADULT ---
HPI - General Adult General Chief complaint: Weakness Stated complaint: increased weakness, jaundice Time Seen by Provider: 04/15/21 19:22 History of Present Illness HPI narrative: Patient is a 45-year-old gentleman who has history of cirrhosis that presents the emergency department with chief complaint of altered mental status. The patient is also noticed has become more jaundiced. Patient has been more confused at home and less responsive. Patient reports symptoms are not improved by anything nor they worsened by anything the patient does report that he is continue to drink alcohol from his last drink about 3 days ago. Related Data Allergies Allergy/AdvReac Type Severity Reaction Status Date / Time No Known Allergies Allergy Unverified 01/24/21 09:50 Review of Systems Review of Systems: A 10 system review of systems was completed on the patient and is negative except for what is stated in the HPI. Nursing and ancillary documentation was reviewed. [facility] Past Medical History Medical History CHF (congestive heart failure) Cirrhosis Colon cancer screening 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 He drinks 3 days a week and usually drinks 2 mixed drinks with 3 but fireball shots. No IV drugs or street drugs but does do marijuana. He would like to be a full code. In the event of him being unable to him make his own decisions, he elects Clement, his son as his surrogate decision maker. pt does no work Smoking packs per day: 1 Smoking cigarettes per day: 20.0 Years smoked: 30 Smoking pack-years: 30.00 Smoking status: Current every day smoker Tobacco type: cigarettes Second hand tobacco smoke exposure: No Alcohol intake: current Drinks per week: 6 Substance use: current Substance use type: marijuana Gender identity (if verbalized by the patient): Male Spiritual care concerns: No Exam Narrative: GENERAL: Well-appearing, well-nourished, and in no acute distress. HEAD: Normocephalic, atraumatic. EYES: PERRLA and EOMI. icteric ENT: Nares clear, no rhinorrhea or epistaxis. Mucous membranes moist. NECK: Supple. CHEST: Clear to auscultation. No respiratory distress. HEART: Regular rate and rhythm. No murmur heard. Normal peripheral pulses. ABDOMEN: Soft, nontender, distended positive ascites, normal active bowel sounds. EXTREMITIES: Normal range of motion. 2+ edema. SKIN: Warm, dry, no rash. Icteric NEURO: No focal deficits. Alert and oriented x3. Slow to respond PSYCH: Normal mood and affect. Course Course Emergency Course: The case was discussed with the liver attending at [facility] and the patient was accepted to their facility currently there are no beds available at this time and they recommended admitting the patient locally treating patient with albumin lactulose and vitamin K Patient was accepted by Dr. Dorsey at 2240 on 04/15/2021 Vital Signs Vital signs: Vital Signs Temperature 35.7 C L 04/15/21 17:07 Pulse Rate 109 H 04/15/21 17:07 Respiratory Rate 20 04/15/21 17:07 Blood Pressure 118/67 04/15/21 17:07 Pulse Oximetry 98 04/15/21 17:07 Temperature 35.7 C L 04/15/21 17:07 Pulse Rate 84 04/15/21 22:16 Respiratory Rate 15 04/15/21 22:16 Blood Pressure 116/61 04/15/21 22:16
[2021-04-15 19:46] LABS: Band Neutrophils Percent 4 % (0-6); Monocytes Percent Manual 3 % (3-9); Neutrophils Absolute Manual 35.68 K/mm3 (1.3-6.7); Neutrophils Percent Manual 85 % (46-73); Platelet Estimate Decreased (Adequate); Total Cells Counted 100
[2021-04-15 19:47] LABS: Acanthocytes 1+ (NORMAL); Anisocytosis 1+ (NORMAL); Burr Cells 2+ (NORMAL); Ovalocytes 1+ (NORMAL)
[2021-04-15 19:48] LABS: INR 3.9; Poikilocytosis 1+ (NORMAL)
[2021-04-15 20:24] LABS: Ethanol < 10 mg/dL (<10)
[2021-04-15 20:25] LABS: Ammonia 64 umol/L (9-30)
[2021-04-15 20:39] LABS: Lactic Acid Reflex 6.5 mmol/L (0.7-2.1)
[2021-04-15 20:41] LABS: Alanine Aminotransferase 53 U/L (4-50); Albumin Level 2.6 g/dL (3.5-5.1); Alkaline Phosphatase 207 U/L (38-126); Anion Gap 17 mmol/L (8-16); Aspartate Amino Transferase 300 U/L (17-59); Bilirubin,Total 21.8 mg/dL (0.2-1.3); Blood Urea Nitrogen 96 mg/dL (9-20); Calcium 7.7 mg/dL (8.4-10.2); Carbon Dioxide 19 mmol/L (22-30); Chloride 90 mmol/L (98-107); Estimated CRCL calculation 26 ml/min; Estimated Glomerular Filt Rate 15; Glucose 36 mg/dL (65-110); Lipase 882 U/L (23-300); Potassium 4.7 mmol/L (3.4-5.0); Sodium 126 mmol/L (137-145)
[2021-04-15 20:51] LABS: Glucose Point of Care 25 mg/dl (65-105)
[2021-04-15] MEDS: DEXTROSE 50% 25 GM/50 ML SYRINGE IV PUSH ×2 (20:51→20:53)
[2021-04-15] MEDS: SODIUM CHLORIDE 0.9% IV 1,000 ML 999 ML IV CONT (20:55)
[2021-04-15 21:19] LABS: Glucose Point of Care 200 mg/dl (65-105)
[2021-04-15 21:33] LABS: Add Urine Microscopic? YES; Appearance Urine Cloudy (Clear); Bacteria Urine Trace /hpf; Bilirubin Urine 2+ (Negative); Blood Urine 1+ (Negative); Color Urine Amber (Yellow); Glucose Urine UA Negative (Negative); Ketones Urine Negative (Negative); Leukocyte Esterase Ur Negative LEU/UL (Negative); Mucus Urine Rare /lpf; Nitrate Urine Negative (Negative); Protein Urine 1+ mg/dL (Negative); Specific Grav Ur 1.019 (1.001-1.035); Squamous Epithelial Cell Urine Few /hpf (Few); WBC Urine 0-3 /hpf
--- NOTE | 2021-04-15 21:49 | PC.NURSE ---
Patient in CT at this time.
[2021-04-15 22:14] LABS: Amphetamine Screen Urine Negative (Negative); Barbiturate Screen Urine Negative (Negative); Benzodiazepines Screen Urine Negative (Negative); Cannabinoid Screen Urine Positive (Negative); Cocaine Screen Urine Negative (Negative); Methadone Screen Urine Negative (Negative); Opiate Screen Urine Negative (Negative); Phencyclidine Screen Urine Negative (Negative)
[2021-04-15 22:15] LABS: Glucose Point of Care 126 mg/dl (65-105)
--- NOTE | 2021-04-15 22:29 | PC.NURSE ---
VANNESA FROM [facility] CALLED AND SAID PATIENT HAS BEEN ACCEPTED BY DR. NAVARRO, (LIVER ATTENDING)...THERE ARE NO BEDS AVAILABLE AT THIS TIME. PATIENT IS ON WAITLIST.
[2021-04-15] MEDS: LACTULOSE 20 GM/30 ML UDC PO (22:30)
--- NOTE | 2021-04-15 22:40 | PM.IMHP ---
H&P: HPI History of Present Illness Date/Time: 04/15/21 22:40 Chief Complaint: Altered mental status. Narrative: This is a 45-year-old male with past medical history significant for alcohol dependence, hepatic cirrhosis, ascites, congestive heart failure, portal hypertension, tobacco dependence. Patient presented to the emergency room due to altered mental status, worsening jaundice, bilateral lower extremity swelling ,abdomen distension. At the time of my visit patient was obtunded moaning and groaning could not give me any history. Most of the history has been obtained upon reviewing medical records. Preliminary workup was significant for WBC count of 40,000, PT 37, sodium 126, chloride 90, bicarb 19, BUN 96/ creatinine 4.3, glucose of 36 lactic acid 7 AST 300, ALT 53, alk phos 207, ammonia level 64, patient tested positive for COVID-19. Patient had a relapse in drinking and had been drinking alcohol lately. Patient is been admitted for further evaluation, management and treatment. Review of Systems Review of Systems: ROS unobtainable: Yes unobtainable due to mental status (Stuporous) [facility] Past Medical History Medical History CHF (congestive heart failure) Cirrhosis Colon cancer screening 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 He drinks 3 days a week and usually drinks 2 mixed drinks with 3 but fireball shots. No IV drugs or street drugs but does do marijuana. He would like to be a full code. In the event of him being unable to him make his own decisions, he elects Clement, his son as his surrogate decision maker. pt does no work Smoking packs per day: 1 Smoking cigarettes per day: 20.0 Years smoked: 30 Smoking pack-years: 30.00 Smoking status: Current every day smoker Tobacco type: cigarettes Second hand tobacco smoke exposure: No Alcohol intake: current Drinks per week: 6 Substance use: current Substance use type: marijuana Gender identity (if verbalized by the patient): Male Spiritual care concerns: No Meds Home Medications and Allergies Home Medications Medication Instructions Recorded Confirmed Type furosemide 40 mg PO DAILY 30 Days #30 tablet 12/01/20 01/22/21 Rx spironolactone 100 mg PO QAM 30 Days #120 tablet 12/01/20 01/22/21 Rx cyanocobalamin (vitamin B-12) 1,000 mcg PO QAM #30 tablet 01/25/21 Rx [Vitamin B-12] folic acid 1 mg PO DAILY #30 tablet 01/25/21 Rx lactulose 20 g PO QAM #300 ml 01/25/21 Rx lanolin ysgmkmz-de-p.pet-ceres 1 applic TOPICAL DAILY #60 g 01/25/21 Rx [Minerin Creme] nadolol 20 mg PO QAM #30 tablet 01/25/21 Rx pantoprazole 40 mg PO QAM #30 tablet 01/25/21 Rx pyridoxine (vitamin B6) 50 mg PO DAILY #30 tablet 01/25/21 Rx Allergies Allergy/AdvReac Type Severity Reaction Status Date / Time No Known Allergies Allergy Unverified 01/24/21 09:50 Vital Signs Vital Signs - 24 hr 04/15/21 17:07 04/15/21 18:32 04/15/21 20:08 Temperature 96.3 F L Pulse Rate 109 H 96 89 Respiratory Rate 20 21 H 26 H Blood Pressure 118/67 125/63 110/61 Pulse Oximetry 98 96 95 04/15/21 20:16 04/15/21 20:33 04/15/21 21:31 Temperature Pulse Rate 90 93 85 Respiratory Rate 25 H 21 H 15 Blood Pressure 104/56 L 117/55 L Pulse Oximetry 96 96 04/15/21 21:56 04/15/21 22:01 04/15/21 2
[2021-04-15 23:12] LABS: Reflex Lactic Acid Yes or No Add Lactic
--- NOTE | 2021-04-15 23:22 | PC.NURSE ---
Patient report given to ANNA Denis. All questions answered at this time and care turned over to ANNA Denis.
[2021-04-15] MEDS: SODIUM CHLORIDE 0.9% IV 1,000 ML 125 ML IV CONT (23:54)
[2021-04-15] MEDS: PHYTONADIONE ADULT INJ 10 MG in DEXTROSE 5% IN WATER 50 ML 100 MG IVPB (23:56)
[2021-04-16] VITALS (16 sets, daily range): BP systolic 99–142; BP diastolic 49–68; PULSE 68–103; RESP 12–97; TEMP 35.8–36.4; O2SAT 20–100; BMI 31.1
[2021-04-16 00:09] LABS: SARS-CoV-2 RNA PCR Positive
--- NOTE | 2021-04-16 00:34 | PC.NURSE ---
Spoke with Cindy at the [facility] and informed her that this patient's Covid Test came back POSITIVE. She will make note in his chart at [facility]. Patient is still on waitlist at this time.
[2021-04-16] MEDS: ALBUMIN HUMAN 25% 25 GM/100 ML 100 ML IVPB ×3 (01:04→12:15)
[2021-04-16] MEDS: MORPHINE SULFATE (*CRX) 2 MG/ML INJ IV PUSH (02:25)
[2021-04-16 02:30] LABS: Glucose Point of Care 97 mg/dl (65-105)
[2021-04-16 07:29] LABS: Glucose Point of Care 43 mg/dl (65-105)
[2021-04-16] MEDS: DEXTROSE 50% 25 GM/50 ML SYRINGE IV PUSH ×2 (07:30→09:15)
[2021-04-16 09:10] LABS: Glucose Point of Care 55 mg/dl (65-105)
[2021-04-16] MEDS: LACTULOSE 20 GM/30 ML UDC PO (09:30)
[2021-04-16] MEDS: DEXTROSE 5% 1,000 ML 1,000 ML 100 ML IVPB (10:40)
[2021-04-16 11:01] LABS: Hematocrit 27.3 % (42.0-52.0); Hemoglobin 9.7 g/dL (14.0-18.0); Immature Platelet Fraction Pct 10.7 % (0.9-11.2); Mean Corpuscular HGB Conc 35.5 g/dl (32-36); Mean Corpuscular Hemoglobin 34.6 pg (26-34); Mean Corpuscular Volume 97.5 fl (80-100); Mean Platelet Volume 12.7 fl (7.4-10.4); Platelet Count Result 61 k/mm3 (150-375); White Blood Count 31.6 K/mm3 (4.5-10.0)
[2021-04-16 11:09] LABS: Alveolar/Arterial O2 Gradient 53.3 mmHg; Base Excess ABG -4.2 mEq/l (+/-2.0); Fractional Inspired Oxygen 21 %; Oxygen Content ABG 13.9 %vol (16.0-22.0); Oxygen Saturation ABG 94.9 % (95.0-100.0); Oxyhemoglobin 91.1 % THb (90.0-100.0); PCO2 ABG 24.6 mmHg (35.0-45.0); PO2 FiO2 Ratio Arterial Blood 3.19 %; Total Hemoglobin 10.8 g/dL (12.0-18.0); pH ABG 7.482 (7.350-7.450)
[2021-04-16 11:11] LABS: Device ROOM AIR; Modified Allen's Test Pass; Site Drawn LEFT RADIAL
[2021-04-16 11:19] LABS: Lactic Acid Reflex 5.4 mmol/L (0.7-2.1)
[2021-04-16 11:21] LABS: Band Neutrophils Percent 12 % (0-6); Helmet Cells 1+ (NORMAL); Lymphocytes Absolute Manual 1.26 K/mm3 (1.1-4.5); Monocytes Absolute Manual 1.26 K/mm3 (0.1-0.90); Monocytes Percent Manual 4 % (3-9); Neutrophils Absolute Manual 29.07 K/mm3 (1.3-6.7); Neutrophils Percent Manual 80 % (46-73); Ovalocytes 1+ (NORMAL); Platelet Estimate Adequate (Adequate); Target Cells 1+ (NORMAL); Total Cells Counted 100
[2021-04-16 11:22] LABS: Acanthocytes 2+ (NORMAL); Burr Cells 1+ (NORMAL)
[2021-04-16 11:34] LABS: Alanine Aminotransferase 48 U/L (4-50); Albumin Level 2.5 g/dL (3.5-5.1); Alkaline Phosphatase 148 U/L (38-126); Anion Gap 17 mmol/L (8-16); Aspartate Amino Transferase 287 U/L (17-59); Bilirubin,Total 22.3 mg/dL (0.2-1.3); Blood Urea Nitrogen 105 mg/dL (9-20); Calcium 6.9 mg/dL (8.4-10.2); Carbon Dioxide 17 mmol/L (22-30); Chloride 93 mmol/L (98-107); Glucose 93 mg/dL (65-110); Magnesium 2.1 mg/dL (1.6-2.3); Phosphorus 7.8 mg/dL (2.5-4.5); Potassium 4.6 mmol/L (3.4-5.0); Sodium 127 mmol/L (137-145)
[2021-04-16] MEDS: SODIUM CHLORIDE 0.9% IV 250 ML 30 ML IV CONT (12:30)
[2021-04-16 13:17] LABS: Estimated CRCL calculation 31 ml/min; Estimated Glomerular Filt Rate 20
--- NOTE | 2021-04-16 13:20 | PM.IMPN ---
Progress Note: A&P Assessment and Plan (1) Decompensated hepatic cirrhosis: Code(s): K72.90 - Hepatic failure, unspecified without coma; K74.60 - Unspecified cirrhosis of liver Status: Acute Assessment and Plan: Will admit to IMU Vitals as per unit protocol Continuous telemetry Continuous pulse oximetry Bed rest NPO Daily intake and output IV fluids Likely secondary to patient's is still ingesting alcohol in the setting of acute viral illness with COVID-19 Continue to monitor Supportive care (2) Acute alcoholic hepatitis: Code(s): K70.10 - Alcoholic hepatitis without ascites Status: Acute Assessment and Plan: It was noted patient with an increment of his AST and known alcohol consumption recently Continue to trend liver enzymes Supportive care (3) Acute kidney injury: Code(s): N17.9 - Acute kidney failure, unspecified Status: Acute Assessment and Plan: Patient with granular casts present in the urinalysis Ferguson catheter has been placed Renal ultrasound in a.m. Suspect ATN as well as likely hepatorenal syndrome Will discontinue spironolactone Will discontinue beta-roderick Will discontinue Lasix Consider anti-diuretic hormone analog IV fluids Strict I/O's daily Nephrology consult (4) SBP (spontaneous bacterial peritonitis): Code(s): K65.2 - Spontaneous bacterial peritonitis Status: Acute Assessment and Plan: Patient with leukocytosis Will treat empirically for spontaneous bacterial peritonitis Diagnostic paracentesis Started on ceftriaxone 2 g IV daily (5) Hyponatremia: Code(s): E87.1 - Hypo-osmolality and hyponatremia Status: Acute Assessment and Plan: Likely secondary to liver disease (6) Hepatic encephalopathy: Code(s): K72.90 - Hepatic failure, unspecified without coma Status: Acute Assessment and Plan: Continue lactulose (7) Coagulopathy: Code(s): D68.9 - Coagulation defect, unspecified Status: Acute Assessment and Plan: Secondary to liver disease Received vitamin K (8) Thrombocytopenia: Code(s): D69.6 - Thrombocytopenia, unspecified Status: Acute Assessment and Plan: Likely secondary to liver disease Continue to monitor (9) Pneumonia due to COVID-19 virus: Code(s): U07.1 - COVID-19; J12.82 - Pneumonia due to coronavirus disease 2018 Status: Acute Assessment and Plan: Patient not a candidate for remdesivir due to liver disease Supportive care (10) Tobacco dependence: Code(s): F17.200 - Nicotine dependence, unspecified, uncomplicated Status: Acute Assessment and Plan: Patient has received counseling on numerous occasions Follow-up in outpatient setting (11) Alcohol dependence: Code(s): F10.20 - Alcohol dependence, uncomplicated Status: Acute Assessment and Plan: CIWA protocol as needed (12) Normochromic normocytic anemia: Code(s): D64.9 - Anemia, unspecified Status: Acute Assessment and Plan: Continue to monitor Transfuse as needed Additional Plan 04/16/2021 Will continue current plan of care and treatment. Will follow the culture report. Follow CBC and BUN creatinine. Consult order. Subjective Date/time seen: 04/16/21 13:20 Patient was seen during the morning rounds today. Still is confused, mild shortness of breath no chest pain. Mild abdominal pain, nausea no vomiting. Review of Systems Review of Systems: ROS unobtainable: Yes unobtainable due to mental status (Stuporous) Exam Const: General: well developed, acute distress (Moaning and groaning) mild, ill appearing acutely and other (Stuporous) Nutritional Appearance: average body habitus Orientation/consciousness: Other orientation findings (Stuporous) Limitations: altered mental status HENMT: Head: normal to inspection, normocephalic and atraumatic Ears: hearing grossly normal bilaterally Ge
[2021-04-16 13:57] LABS: Reflex Lactic Acid Yes or No Add Lactic
[2021-04-16 14:38] LABS: Glucose Point of Care 85 mg/dl (65-105)
--- NOTE | 2021-04-16 14:45 | PC.NURSE ---
RADIOLOGY AT BEDSIDE FOR ULTRASOUND GUIDED PARACENTESIS.
[2021-04-16 14:50] LABS: INR 3.9; Prothrombin Time 36.8 Seconds (11.1-14.7)
[2021-04-16 14:54] LABS: Lactic Acid 5.2 mmol/L (0.7-2.1)
[2021-04-16] MEDS: FOLIC ACID 1 MG TABLET PO (15:44)
[2021-04-16] MEDS: THIAMINE HCL 100 MG TABLET PO (15:44)
[2021-04-16] MEDS: PANTOPRAZOLE SODIUM IV 40 MG VIAL IV PUSH (15:44)
[2021-04-16 16:51] LABS: Appearance Peritoneal Fluid Hazy (Clear); Color Peritoneal Fluid Yellow (Colorless); Lymphocytes Peritoneal Fluid 3 %; Macrophages Peritoneal Fluid 8 %; Mesothelial Cells Peritoneal Fluid 6 %; Neutrophils Peritoneal Fluid 83 % (0-25); Nucleated Cells Peritoneal Flu 917 /uL (0-500); RBC Peritoneal Fluid 605 /uL (0-100000); Source Peritoneal Fluid Peritoneal Fluid
--- NOTE | 2021-04-16 17:00 | ADMGEN ---
This patient, Abiel Alberto, was admitted to [facility] Surg Room 312-01. Patient/family oriented to hospital policies and general routines including ID bracelet, bed and alarms, visiting hours, pain management, procedures, bathroom and other care routines, personal items, smoking policy, room service/diet, and visiting hours. Information on how to activate the Rapid Response Team has been discussed. Patient/Family are encouraged to report perceived risks to care and to ask questions if they do not understand what they are told or what they should do.
[2021-04-16] MEDS: SODIUM CHLORIDE 0.9% IV 1,000 ML 75 ML IV CONT (19:46)
[2021-04-16] MEDS: PHYTONADIONE ADULT INJ 10 MG in DEXTROSE 5% IN WATER 50 ML 100 MG IVPB (19:47)
[2021-04-16] MEDS: GABAPENTIN 300 MG CAPSULE PO (22:51)
[2021-04-16 23:59] LABS: Glucose Point of Care 74 mg/dl (65-105)
[2021-04-17] VITALS: BP 112/60; PULSE 92; RESP 14; TEMP 35.7; O2SAT 100
[2021-04-17 04:00] VITALS: BP 131/51; PULSE 89; RESP 16; TEMP 35.5; O2SAT 89
[2021-04-17] MEDS: SODIUM CHLORIDE 0.9% IV 1,000 ML 75 ML IV CONT (05:06)
[2021-04-17 08:00] VITALS: BP 112/42; PULSE 90; PULSE 93; RESP 18; TEMP 36.7; O2SAT 100
[2021-04-17 09:01] LABS: Hematocrit 27.3 % (42.0-52.0); Hemoglobin 9.6 g/dL (14.0-18.0); Mean Corpuscular HGB Conc 35.2 g/dl (32-36); Mean Corpuscular Hemoglobin 34.9 pg (26-34); Mean Corpuscular Volume 99.3 fl (80-100); Mean Platelet Volume 12.9 fl (7.4-10.4); Platelet Count Result 54 k/mm3 (150-375); Red Blood Count 2.75 M/mm3 (4.6-6.20); Red Cell Distribution Width 16.4 % (11.5-14.5); White Blood Count 32.7 K/mm3 (4.5-10.0)
[2021-04-17 09:21] LABS: Alanine Aminotransferase 55 U/L (4-50); Albumin Level 2.6 g/dL (3.5-5.1); Alkaline Phosphatase 142 U/L (38-126); Anion Gap 18 mmol/L (8-16); Aspartate Amino Transferase 318 U/L (17-59); Bilirubin,Total 23.6 mg/dL (0.2-1.3); Blood Urea Nitrogen 117 mg/dL (9-20); Calcium 6.6 mg/dL (8.4-10.2); Carbon Dioxide 16 mmol/L (22-30); Chloride 93 mmol/L (98-107); Glucose 35 mg/dL (65-110); Potassium 4.7 mmol/L (3.4-5.0); Sodium 127 mmol/L (137-145)
[2021-04-17 09:22] LABS: Estimated CRCL calculation 29 ml/min; Estimated Glomerular Filt Rate 18
[2021-04-17 09:31] LABS: Glucose Point of Care 20 mg/dl (65-105)
[2021-04-17] MEDS: DEXTROSE 50% 25 GM/50 ML SYRINGE IV PUSH ×3 (09:35→12:36)
--- NOTE | 2021-04-17 10:15 | PM.CNNEP ---
Assessment and Plan Assessment and plan (1) Acute renal failure: Qualifiers: Acute renal failure type: unspecified Qualified Code(s): N17.9 - Acute kidney failure, unspecified Code(s): N17.9 - Acute kidney failure, unspecified Status: Acute Assessment and Plan: normal creatinine at baseline suspect ATN from: infection (SBP + bacteremia + COVID-19) pre-renal factors liver disease/physiology - possible HRS (decreased effective circulating volume leading to chronic pre-renal azotemia) relative hypotension renal ultrasound without any acute issues check urine electrolytes and eosinophils consider trial of IVF hydration (since NPO, active alcohol intake, and lactic acidosis) follow repeat labs and UOP (2) Metabolic acidosis: Code(s): E87.2 - Acidosis Status: Acute Assessment and Plan: due to a combination of BETO + lactic acidosis follow trend consider oral sodium bicarbonate if able to take po may need IV supplementation (3) Hyponatremia: Code(s): E87.1 - Hypo-osmolality and hyponatremia Status: Acute Assessment and Plan: likely due to a combination of BETO + decompensate liver disease already NPO (so technically fluid restricted) follow trend (4) Decompensated hepatic cirrhosis: Code(s): K72.90 - Hepatic failure, unspecified without coma; K74.60 - Unspecified cirrhosis of liver Status: Acute Assessment and Plan: presumed to be secondary to ongoing alcohol use up until admission worsened by infection (SBP/bacteremia/COVID-19) continue supportive therapy GI consultation? (5) Bacteremia: Code(s): R78.81 - Bacteremia Status: Acute Assessment and Plan: blood culture with gram + cocci in clusters (2/2 bottles) on IV antibiotics follow up on organism identification due to SBP(?) (6) SBP (spontaneous bacterial peritonitis): Code(s): K65.2 - Spontaneous bacterial peritonitis Status: Acute Assessment and Plan: s/p paracentesis peritoneal fluid cell count highly suggestive of infection on antibiotic therapy (7) COVID-19 virus infection: Code(s): U07.1 - COVID-19 Status: Acute Assessment and Plan: no evidence of hypoxia at this time no need for steroids and not a candidate for remdesivir due to liver issues supportive therapy (8) Alcohol dependence: Code(s): F10.20 - Alcohol dependence, uncomplicated Status: Chronic Assessment and Plan: monitor for withdrawal symptoms Will continue to follow. History of Present Illness Reason for Consult Consult date: 04/17/21 Reason for consult: acute renal failure Chief Complaint Chief complaint: Liver Failure,Acute Renal Failure,Pneumonia,Hepati History of Present Illness Narrative: The patient is a 45-year-old male with a past medical history as outlined below who presented to [facility] Emergency room due to altered mental status. Most of the information I have obtained is from review of the electronic medical record as the patient does not recall how he ended up in the ER. Apparently, along with his altered mental status, he was noticed to have worsening jaundice, increased bilateral lower extremity swelling/edema, and worsening abdominal distension. I am unclear if he presented to the emergency room via EMS or did family/friends bring him to the ER for evaluation. Workup and evaluation emergency room demonstrated that he was quite confused if not a ton did although with stimulation he did proceed to have some moaning and groaning. Routine blood [place] [address], thrombocytopenia, hyponatremia, and significant / severe acute kidney injury with a BUN of 96 and a creatinine of 4.3. He was also noted to be hypoglycemic with evidence of a lactic acidosis and elevated liver function tests as well. His ammonia level was
--- NOTE | 2021-04-17 10:15 | P.CONNP_ITS ---
Assessment and Plan Assessment and plan (1) Acute renal failure: Qualifiers: Acute renal failure type: unspecified Qualified Code(s): N17.9 - Acute kidney failure, unspecified Code(s): N17.9 - Acute kidney failure, unspecified Status: Acute Assessment and Plan: * normal creatinine at baseline * suspect ATN from: * infection (SBP + bacteremia + COVID-19) * pre-renal factors * liver disease/physiology - possible HRS (decreased effective circulating volume leading to chronic pre-renal azotemia) * relative hypotension * renal ultrasound without any acute issues * check urine electrolytes and eosinophils * consider trial of IVF hydration (since NPO, active alcohol intake, and lactic acidosis) * follow repeat labs and UOP (2) Metabolic acidosis: Code(s): E87.2 - Acidosis Status: Acute Assessment and Plan: * due to a combination of BETO + lactic acidosis * follow trend * consider oral sodium bicarbonate if able to take po * may need IV supplementation (3) Hyponatremia: Code(s): E87.1 - Hypo-osmolality and hyponatremia Status: Acute Assessment and Plan: * likely due to a combination of BETO + decompensate liver disease * already NPO (so technically fluid restricted) * follow trend (4) Decompensated hepatic cirrhosis: Code(s): K72.90 - Hepatic failure, unspecified without coma; K74.60 - Unspecified cirrhosis of liver Status: Acute Assessment and Plan: * presumed to be secondary to ongoing alcohol use up until admission worsened by infection (SBP/bacteremia/COVID-19) * continue supportive therapy * GI consultation? (5) Bacteremia: Code(s): R78.81 - Bacteremia Status: Acute Assessment and Plan: * blood culture with gram + cocci in clusters (2/2 bottles) * on IV antibiotics * follow up on organism identification * due to SBP(?) (6) SBP (spontaneous bacterial peritonitis): Code(s): K65.2 - Spontaneous bacterial peritonitis Status: Acute Assessment and Plan: * s/p paracentesis * peritoneal fluid cell count highly suggestive of infection * on antibiotic therapy (7) COVID-19 virus infection: Code(s): U07.1 - COVID-19 Status: Acute Assessment and Plan: * no evidence of hypoxia at this time * no need for steroids and not a candidate for remdesivir due to liver issues * supportive therapy (8) Alcohol dependence: Code(s): F10.20 - Alcohol dependence, uncomplicated Status: Chronic Assessment and Plan: * monitor for withdrawal symptoms Will continue to follow. History of Present Illness Reason for Consult Consult date: 04/17/21 Reason for consult: acute renal failure Chief Complaint Chief complaint: Liver Failure,Acute Renal Failure,Pneumonia,Hepati History of Present Illness Narrative: The patient is a 45-year-old male with a past medical history as outlined below who presented to [facility] Emergency room due to altered mental status. Most of the information I have obtained is from review of the electronic medical record as the patient does not recall how he ended up in the ER. Apparently, along with his altered mental status, he was noticed to have worsening jaundice, increased bilateral lower extremity swelling/edema, and worsening abdominal distension. I am unclear if he presented to the emergency room via EMS or did family/friends bring him to the ER for evaluation. Workup and evaluation em
[2021-04-17] MEDS: LACTULOSE 20 GM/30 ML UDC PO ×3 (10:52→17:09)
[2021-04-17] MEDS: THIAMINE HCL 100 MG TABLET PO (10:53)
[2021-04-17] MEDS: GABAPENTIN 300 MG CAPSULE PO ×3 (10:53→17:10)
[2021-04-17] MEDS: PANTOPRAZOLE SODIUM IV 40 MG VIAL IV PUSH (10:53)
[2021-04-17] MEDS: FOLIC ACID 1 MG TABLET PO (10:53)
--- NOTE | 2021-04-17 11:33 | PM.IMPN ---
Progress Note: A&P Assessment and Plan (1) Decompensated hepatic cirrhosis: Code(s): K72.90 - Hepatic failure, unspecified without coma; K74.60 - Unspecified cirrhosis of liver Status: Acute Assessment and Plan: Clear liquid diet Daily intake and output IV fluids per Nephrology GI was consulted May need albumin and Lasix drip (2) Acute alcoholic hepatitis: Code(s): K70.10 - Alcoholic hepatitis without ascites Status: Acute Assessment and Plan: It was noted patient with an increment of his AST and known alcohol consumption recently Continue to trend liver enzymes High risk for mortality May benefit from steroid Supportive care (3) Acute kidney injury: Code(s): N17.9 - Acute kidney failure, unspecified Status: Acute Assessment and Plan: Patient with granular casts present in the urinalysis Ferguson catheter has been placed Suspect ATN as well as likely hepatorenal syndrome Will discontinue spironolactone Will discontinue beta-roderick Nephrology eval consider albumin/Lasix drip (4) SBP (spontaneous bacterial peritonitis): Code(s): K65.2 - Spontaneous bacterial peritonitis Status: Acute Assessment and Plan: Patient with leukocytosis Will treat empirically for spontaneous bacterial peritonitis Diagnostic paracentesis Started on ceftriaxone 2 g IV daily (5) Hyponatremia: Code(s): E87.1 - Hypo-osmolality and hyponatremia Status: Acute Assessment and Plan: Likely secondary to liver disease (6) Hepatic encephalopathy: Code(s): K72.90 - Hepatic failure, unspecified without coma Status: Acute Assessment and Plan: Check ammonia level Continue lactulose (7) Coagulopathy: Code(s): D68.9 - Coagulation defect, unspecified Status: Acute Assessment and Plan: Secondary to liver disease Received vitamin K (8) Thrombocytopenia: Code(s): D69.6 - Thrombocytopenia, unspecified Status: Acute Assessment and Plan: Likely secondary to liver disease Continue to monitor (9) Pneumonia due to COVID-19 virus: Code(s): U07.1 - COVID-19; J12.82 - Pneumonia due to coronavirus disease 2019 Status: Acute Assessment and Plan: Patient not a candidate for remdesivir due to liver disease Supportive care (10) Tobacco dependence: Code(s): F17.200 - Nicotine dependence, unspecified, uncomplicated Status: Acute Assessment and Plan: Patient has received counseling on numerous occasions Follow-up in outpatient setting (11) Alcohol dependence: Code(s): F10.20 - Alcohol dependence, uncomplicated Status: Chronic Assessment and Plan: CIWA protocol as needed (12) Normochromic normocytic anemia: Code(s): D64.9 - Anemia, unspecified Status: Acute Assessment and Plan: Continue to monitor Transfuse as needed Subjective Date/time seen: 04/17/21 11:33 Interval history: 45 years old male with past medical history of chronic alcoholism liver cirrhosis presented to the hospital with altered mental status generalized weakness was found to have acute and of chronic renal failure acute hepatitis admitted for further evaluation and treatment also patient has acute renal failure nephrology was consulted Patient feels weak Patient denies fever headache chest pain shortness of breath I am seeing the patient for liver failure Exam Narrative: Alert Chest decreased air entry bilateral Abdomen distended CVS S1 + S2 Lower positive extremity edema Objective Data Vital Signs Vital Signs: Vital Signs - 24 hr 04/16/21 12:43 04/16/21 13:04 04/16/21 13:22 Temperature 97.5 F L 97.5 F L 97.6 F Pulse Rate 97 95 102 H Respiratory Rate 16 16 22 H Blood Pressure 110/62 108/67 122/63 Pulse Oximetry 95 96 100 04/16/21 13:37 04/16/21 14:02 04/16/21 14:22 Temperature 97.6 F 97.5 F L Pulse Rate 95 96 98 Respiratory Rate 20 24 H 97 H B
[2021-04-17 11:55] LABS: Glucose Point of Care 58 mg/dl (65-105)
[2021-04-17 12:00] VITALS: BP 101/45; PULSE 91; PULSE 94; RESP 18; TEMP 36.2; O2SAT 96
[2021-04-17] MEDS: SODIUM CHLORIDE 0.9% IV 500 ML IV CONT (12:10)
[2021-04-17] MEDS: GLUCOSE ORAL GEL 15 GM OF GLUCSE IN 37.5 GM TUBE PO (12:10)
[2021-04-17] MEDS: DEXTROSE 5%/0.9% SOD CHL 1,000 ML 75 ML IV CONT (12:12)
[2021-04-17 13:31] LABS: Ammonia < 9 umol/L (9-30)
--- NOTE | 2021-04-17 15:09 | WPDGICN ---
Assessment and Plan Assessment and plan (1) Decompensated hepatic cirrhosis: Code(s): K72.90 - Hepatic failure, unspecified without coma; K74.60 - Unspecified cirrhosis of liver Status: Acute Assessment and Plan: he is quite sick, here with sepsis and bacteremia, also COVID complicated with SBP, renal failure, coagulopathy high MELD score 46, risk for complications and mortality with poor prognosis but today seems better, he is awake and alert (2) Bacteremia: Code(s): R78.81 - Bacteremia Status: Acute Assessment and Plan: appropriately on iv antibiotics (3) SBP (spontaneous bacterial peritonitis): Code(s): K65.2 - Spontaneous bacterial peritonitis Status: Acute Assessment and Plan: fluid consistent with SBP on iv albumin (will repeat tomorrow), he already has renal failure (4) Acute alcoholic hepatitis: Code(s): K70.10 - Alcoholic hepatitis without ascites Status: Acute Assessment and Plan: he has been drinking again, he also has HCV- treatment naive (5) Acute kidney injury: Code(s): N17.9 - Acute kidney failure, unspecified Status: Acute Assessment and Plan: worsening renal failure, avoid nephrotoxic iv albumin, nephrology on board will add midodrine could be HRS (6) Coagulopathy: Code(s): D68.9 - Coagulation defect, unspecified Status: Acute Assessment and Plan: will give vit K x3 (7) Hepatic encephalopathy: Code(s): K72.90 - Hepatic failure, unspecified without coma Status: Acute Assessment and Plan: on lactulose and will add xifaxan (8) Pneumonia due to COVID-19 virus: Code(s): U07.1 - COVID-19; J12.82 - Pneumonia due to coronavirus disease 2019 Status: Acute Assessment and Plan: also covid, on isolation (9) Hyperammonemia: Code(s): E72.20 - Disorder of urea cycle metabolism, unspecified Status: Acute (10) Hypoglycemia: Code(s): E16.2 - Hypoglycemia, unspecified Status: Acute Assessment and Plan: persistent low sugar, on treatment add nutritional supplement (11) Thrombocytopenia: Code(s): D69.6 - Thrombocytopenia, unspecified Status: Acute (12) Thrombocytopenia: Code(s): D69.6 - Thrombocytopenia, unspecified Status: Acute GI Consult Note Consult date/time: 04/17/21 15:09 Reason for consult: hcv/alcoholic cirrhosis, SBP, covid HPI: Abiel Alberto is a 45 year old male with history of hepatitis C diagnosed when he was 30 yo, former IVDA clean for 7 years, treatment naive and alcohol abuse. Had EGD 01/2021 due to hematemesis with EV s/p banding. He came to ER with altered mental status, has been drinking alcohol again and also abdominal discomfort. He was found to have decompensated cirrhosis with ascites, paracentesis consistent with SBP and also + blood cultures with Staph. Also BETO with creat 4, leukocytosis with wbc 30k, hb 9.5, inr 3.9, bili 23, hypoglycemia 50's, lactic acid 5. Started on antibiotics, albumin iv, dextrose, iv, lactulose and feeling better today. Review of Systems Constitutional: Constitutional: Reports weakness Eyes: Eyes: Denies blurry vision ENT: Reports Normal hearing present Cardiovascular: Cardiovascular: Reports leg edema Respiratory: Respiratory: Reports cough Gastrointestinal: Gastrointestinal: Reports abdominal pain Musculoskeletal: Musculoskeletal: Denies neck pain Integumentary/Breasts: Comments: jaundice Neurologic: Reports confusion Psychiatric: Psychiatric: Reports anxiety PMFSH Past Medical History Medical History CHF (congestive heart failure) Cirrhosis Colon cancer screening Decompensated cirrhosis related to hepatitis C virus (HCV) Drug abuse in remission History of hepatitis C Thrombocytopenia Surgical History Surgical History (Reviewed 04/15/21 @ 22:16 by Baldo Candelaria
[2021-04-17 15:51] LABS: Prothrombin Time 46.9 Seconds (11.1-14.7)
[2021-04-17 15:57] LABS: Lactic Acid Reflex 5.2 mmol/L (0.7-2.1)
[2021-04-17 16:00] VITALS: BP 108/52; PULSE 86; PULSE 95; RESP 20; TEMP 36.5; O2SAT 97
[2021-04-17 16:17] LABS: Reflex Lactic Acid Yes or No Add Lactic
[2021-04-17 16:31] LABS: Glucose Point of Care 63 mg/dl (65-105)
[2021-04-17 16:31] LABS: Glucose Point of Care 55 mg/dl (65-105)
[2021-04-17 16:31] LABS: Glucose Point of Care 81 mg/dl (65-105)
[2021-04-17 16:31] LABS: Glucose Point of Care 105 mg/dl (65-105)
[2021-04-17 16:31] LABS: Glucose Point of Care 83 mg/dl (65-105)
[2021-04-17 16:48] LABS: Thyroid Stimulating Hormone Reflex < 0.015 uIU/mL (0.465-4.68)
--- NOTE | 2021-04-17 17:00 | ECHO_ITS ---
Patient Info Name: Abiel Alberto Age: 45 years : 1975 Gender: Male Ht: 72 in Wt: 229 lbs BSA: 2.32 m2 HR: 100 bpm BP: 112 / 42 mmHg Heart Rhythm: Sinus Rhythm Exam Date: 04/17/2021 1:33 PM Exam Location: [facility] Card Pulmonary Patient Status: Inpatient Admit Date: 04/16/2021 Staff Ordering Physician: Pat Rivera M.A., MD Spectroscopist: Mynor Shea, OLYA, RT Attending Provider: Steffany Moses MD Referring Physician: Mauri BURDICK; Exam Type: CA echo doppler color flow Study Info Indications R55 - Syncope and collapse Complete two-dimensional, color flow and Doppler transthoracic echocardiogram is performed. Strain analysis performed. Summary 1. Complete two-dimensional, color flow and Doppler transthoracic echocardiogram is performed. 2. Mild left ventricular enlargement with normal wall thickness. The left ventricular systolic function appears to be mildly diminished, visual ejection fraction 45-50%. There are no segmental wall motion abnormalities. Normal diastolic function. The global longitudinal strain is-23%, which is normal. 3. Left atrial chamber dimension is moderately enlarged. 4. No significant valve disease. 5. Normal sinus rhythm. Left Ventricle Left ventricular chamber dimension is normal. Left ventricular systolic function is mildly reduced, estimated at 45-50%. There is no increased left ventricular wall thickness. Left ventricular septal wall motion is normal. The left ventricular diastolic function is normal. Global longitudinal strain is normal at 23 %. Right Ventricle Right ventricular chamber dimension is normal. Right ventricular systolic function is normal. Left Atria Left atrial chamber dimension is moderately enlarged. Right Atria Right atrial chamber dimension is normal. Aortic Valve The aortic valve is trileaflet. There is no aortic valve sclerosis. There is no aortic valve stenosis. There is no aortic valve regurgitation. Pulmonic Valve The pulmonic valve is normal. There is no pulmonic valve stenosis. There is no pulmonic regurgitation. Mitral Valve The mitral valve has normal leaflets. There is no mitral valve stenosis. There is no mitral valve regurgitation. Tricuspid Valve The tricuspid valve leaflets are normal. There is no significant tricuspid valve stenosis. There is trace tricuspid valve regurgitation. No pulmonary hypertension, estimated pulmonary arterial systolic pressure is Empty. Pericardium/Pleural The pericardium appears normal. There is no pericardial effusion. Inferior Vena Cava Normal inferior vena cava with >50% collapse upon inspiration consistent with Empty right atrial pressure, Empty. Aorta The aortic root size at the sinus of Valsalva is normal. The prox ascending aorta size is normal. Left Ventricular Outflow Tract Name Value Normal LVOT 2D LVOT Diameter 2.4 cm LVOT Doppler LVOT Peak Gradient 8 mmHg LVOT Mean Gradient 4 mmHg LVOT VTI 27 cm LVOT VTI/AV VTI Ratio
[2021-04-17 17:03] LABS: Eosinophil Urine None Seen % (None Seen)
[2021-04-17] MEDS: PHYTONADIONE ADULT INJ 10 MG in DEXTROSE 5% IN WATER 50 ML 100 MG IVPB (17:10)
[2021-04-17 17:45] LABS: INR 5.3
[2021-04-17 17:55] LABS: Lactic Acid 5.4 mmol/L (0.7-2.1)
[2021-04-17] MEDS: SODIUM CHLORIDE 0.9% IV 1,000 ML 500 ML IV CONT (18:53)
[2021-04-17 20:00] VITALS: BP 120/60; PULSE 88; PULSE 98; RESP 20; TEMP 36.1; O2SAT 95
[2021-04-17] MEDS: rifAXIMin 550 MG TABLET PO (20:54)
[2021-04-17 21:21] LABS: Glucose Point of Care 109 mg/dl (65-105)
[2021-04-18] VITALS (7 sets, daily range): BP systolic 109–132; BP diastolic 59–82; PULSE 70–97; RESP 16–20; TEMP 35.7–36.3; O2SAT 90–100
[2021-04-18 01:59] LABS: Glucose Point of Care 101 mg/dl (65-105)
[2021-04-18] MEDS: DEXTROSE 5%/0.9% SOD CHL 1,000 ML 75 ML IV CONT ×2 (04:01→22:04)
[2021-04-18 07:32] LABS: Eosinophils Percent Auto 0.1 % (0-4.4); Hematocrit 24.5 % (42.0-52.0); Hemoglobin 8.7 g/dL (14.0-18.0); Immature Granulocyte Absolute 0.67 K/mm3 (0.00-0.031); Immature Granulocyte Percent A 1.8 % (0-0.5); Immature Platelet Fraction Pct 10.8 % (0.9-11.2); Lymphocytes Absolute Auto 1.63 K/mm3 (0.9-3.2); Lymphocytes Percent Auto 4.4 % (18.3-44.2); Mean Corpuscular HGB Conc 35.5 g/dl (32-36); Mean Corpuscular Hemoglobin 34.5 pg (26-34); Mean Corpuscular Volume 97.2 fl (80-100); Mean Platelet Volume 11.9 fl (7.4-10.4); Monocytes Absolute Auto 1.9 K/mm3 (0.1-0.6); Neutrophils Absolute Auto 32.6 K/mm3 (1.3-6.7); Neutrophils Percent Auto 88.7 % (45.5-73.1); Nucleated Red Blood Cells Perc 0.1 % (0.0-0.2); Platelet Count Result 38 k/mm3 (150-375); Red Blood Count 2.52 M/mm3 (4.6-6.20); Red Cell Distribution Width 16.4 % (11.5-14.5); White Blood Count 36.8 K/mm3 (4.5-10.0)
[2021-04-18 08:08] LABS: Prothrombin Time 46.5 Seconds (11.1-14.7)
[2021-04-18 08:12] LABS: Free T4 Free Thyroxine Reflex 2.02 ng/dL (0.78-2.19)
[2021-04-18 08:16] LABS: Alanine Aminotransferase 65 U/L (4-50); Albumin Level 2.4 g/dL (3.5-5.1); Alkaline Phosphatase 136 U/L (38-126); Anion Gap 14 mmol/L (8-16); Aspartate Amino Transferase 342 U/L (17-59); Bilirubin,Total 24.4 mg/dL (0.2-1.3); Calcium 6.1 mg/dL (8.4-10.2); Carbon Dioxide 17 mmol/L (22-30); Chloride 96 mmol/L (98-107); Estimated CRCL calculation 26 ml/min; Estimated Glomerular Filt Rate 16; Glucose 93 mg/dL (65-110); Potassium 4.5 mmol/L (3.4-5.0); Sodium 127 mmol/L (137-145)
[2021-04-18 08:21] LABS: Blood Urea Nitrogen 123 mg/dL (9-20)
[2021-04-18 08:23] LABS: INR 5.3
[2021-04-18] MEDS: GABAPENTIN 300 MG CAPSULE PO ×3 (09:30→16:42)
[2021-04-18] MEDS: LACTULOSE 20 GM/30 ML UDC PO ×2 (09:30→12:18)
[2021-04-18] MEDS: THIAMINE HCL 200 MG/2 ML VIAL 100 MG IV PUSH (09:31)
[2021-04-18] MEDS: THIAMINE HCL 100 MG TABLET PO (09:31)
[2021-04-18] MEDS: FOLIC ACID 1 MG TABLET PO (09:31)
[2021-04-18] MEDS: PANTOPRAZOLE SODIUM IV 40 MG VIAL IV PUSH (09:31)
[2021-04-18] MEDS: rifAXIMin 550 MG TABLET PO ×2 (09:31→22:03)
--- NOTE | 2021-04-18 10:26 | PM.IMPN ---
Progress Note: A&P Assessment and Plan (1) Decompensated hepatic cirrhosis: Code(s): K72.90 - Hepatic failure, unspecified without coma; K74.60 - Unspecified cirrhosis of liver Status: Acute Assessment and Plan: Full liquid diet Daily intake and output Start Lasix drip and albumin drip GI was consulted (2) Acute alcoholic hepatitis: Code(s): K70.10 - Alcoholic hepatitis without ascites Status: Acute Assessment and Plan: It was noted patient with an increment of his AST and known alcohol consumption recently Continue to trend liver enzymes High risk for mortality Prior wrist Supportive care (3) Acute kidney injury: Code(s): N17.9 - Acute kidney failure, unspecified Status: Acute Assessment and Plan: Patient with granular casts present in the urinalysis Ferguson catheter has been placed Suspect ATN as well as likely hepatorenal syndrome Will discontinue spironolactone Will discontinue beta-roderick Started albumin/Lasix drip (4) SBP (spontaneous bacterial peritonitis): Code(s): K65.2 - Spontaneous bacterial peritonitis Status: Acute Assessment and Plan: Diagnostic paracentesis concern for spontaneous bacterial peritonitis Started on ceftriaxone 2 g IV daily (5) Hyponatremia: Code(s): E87.1 - Hypo-osmolality and hyponatremia Status: Acute Assessment and Plan: Likely secondary to liver disease (6) Hepatic encephalopathy: Code(s): K72.90 - Hepatic failure, unspecified without coma Status: Acute Assessment and Plan: Check ammonia level Continue lactulose (7) Coagulopathy: Code(s): D68.9 - Coagulation defect, unspecified Status: Acute Assessment and Plan: Secondary to liver disease Received vitamin K (8) Thrombocytopenia: Code(s): D69.6 - Thrombocytopenia, unspecified Status: Acute Assessment and Plan: Likely secondary to liver disease Continue to monitor (9) Pneumonia due to COVID-19 virus: Code(s): U07.1 - COVID-19; J12.82 - Pneumonia due to coronavirus disease 2019 Status: Acute Assessment and Plan: Patient not a candidate for remdesivir due to liver disease Supportive care (10) Tobacco dependence: Code(s): F17.200 - Nicotine dependence, unspecified, uncomplicated Status: Acute Assessment and Plan: Patient has received counseling on numerous occasions Follow-up in outpatient setting (11) Alcohol dependence: Code(s): F10.20 - Alcohol dependence, uncomplicated Status: Chronic Assessment and Plan: CIWA protocol as needed (12) Normochromic normocytic anemia: Code(s): D64.9 - Anemia, unspecified Status: Acute Assessment and Plan: Continue to monitor Transfuse as needed (13) Staphylococcus sepsis: Code(s): A41.2 - Sepsis due to unspecified staphylococcus Status: Acute Assessment and Plan: Continue IV vancomycin for now Pending final culture Ordered echo Subjective Date/time seen: 04/18/21 10:26 Interval history: 45 years old male with past medical history of chronic alcoholism liver cirrhosis presented to the hospital with altered mental status generalized weakness was found to have acute on chronic renal failure acute hepatitis admitted for further evaluation and treatment Patient feels weak Patient high risk for mortality Discussed with the patient Discussed with the nurse Patient want to be DNR DNI patient is okay with pressors and admission to ICU for medical treatment Patient want his girlfriend has a [id number] I left a voicemail for the patient's girlfriend The nurse has spoke with the patient girlfriend Patient denies fever headache chest pain shortness of breath I am seeing the patient for liver failure Exam Narrative: Alert Chest decreased air entry bilateral Abdomen distended CVS S1 + S2 Lower positive extremity edema Objecti
[2021-04-18 11:42] LABS: Glucose Point of Care 118 mg/dl (65-105)
[2021-04-18] MEDS: PHYTONADIONE 5 MG TABLET PO (12:08)
--- NOTE | 2021-04-18 12:23 | WPDGIPROGNO ---
Progress Note: A&P Assessment and Plan (1) Decompensated hepatic cirrhosis: Code(s): K72.90 - Hepatic failure, unspecified without coma; K74.60 - Unspecified cirrhosis of liver Status: Acute Assessment and Plan: hcv and alcohol liver disease with high meld score complicated with SBP, worsening renal failure, coagulopathy, encephalopathy high risk of mortality, prognosis is guarded liquid diet, will add supplements with diet (2) Acute alcoholic hepatitis: Code(s): K70.10 - Alcoholic hepatitis without ascites Status: Acute Assessment and Plan: can not use steroids because active infection supportive care (3) Acute kidney injury: Code(s): N17.9 - Acute kidney failure, unspecified Status: Acute Assessment and Plan: ATN vs HRS nephrology on board will give more iv albumin since he was diagnosed with sbp discontinue diuretics for now (4) SBP (spontaneous bacterial peritonitis): Code(s): K65.2 - Spontaneous bacterial peritonitis Status: Acute Assessment and Plan: on antibiotics and iv albumin today (5) Staphylococcus sepsis: Code(s): A41.2 - Sepsis due to unspecified staphylococcus Status: Acute Assessment and Plan: staph bacteremia (6) COVID-19 virus infection: Code(s): U07.1 - COVID-19 Status: Acute (7) Coagulopathy: Code(s): D68.9 - Coagulation defect, unspecified Status: Acute Assessment and Plan: persistent coagulopathy he is on vitamin k (8) Thrombocytopenia: Code(s): D69.6 - Thrombocytopenia, unspecified Status: Acute (9) Hepatic encephalopathy: Code(s): K72.90 - Hepatic failure, unspecified without coma Status: Acute Assessment and Plan: awake and alert, on lactulose and xifaxan Subjective Date/time seen: 04/18/21 12:23 Interval history: still with abdominal pain Review of Systems Review of Systems: All systems reviewed & are unremarkable except as noted in HPI and below Exam Const: Other: acutely ill, jaundice HENMT: Mouth: Yes dry mucous membranes Eyes: Other: icteric sclerae Neck: Neck: supple Resp: Auscultation: clear to auscultation bilaterally Cardio: Rate: regular rate GI: Inspection: distended GI Palp: Yes Tenderness to palpation present (GI) Percussion: Yes Fluid wave present Auscultation: normal bowel sounds Other: no rebound Urinary Catheter: Urinary Catheter: patent and draining Skin: Other: jaundice, dry skin Neuro: Speech: normal speech Extrem: General: pedal edema Psych: Affect: Anxious affect present Objective Data Vital Signs Vital Signs: Vital Signs - 24 hr 04/17/21 16:00 04/17/21 20:00 04/18/21 00:00 Temperature 97.7 F 96.9 F L 96.8 F L Pulse Rate 95 98 91 Respiratory Rate 20 20 18 Blood Pressure 108/52 L 120/60 117/70 Pulse Oximetry 97 95 93 04/18/21 02:08 04/18/21 04:00 04/18/21 08:00 Temperature 96.5 F L 96.5 F L Pulse Rate 91 96 83 Respiratory Rate 18 18 Blood Pressure 132/82 121/68 Pulse Oximetry 90 95 04/18/21 12:00 Temperature 96.2 F L Pulse Rate 95 Respiratory Rate 18 Blood Pressure 109/66 Pulse Oximetry 95 Intake/Output Intake/Output: Intake & Output 04/15/21 04/16/21 04/17/21 04/18/21 23:59 23:59 23:59 23:59 Intake Total 1300 2392 3173 1200 Output Total 500 500 200 Balance 1300 1892 2673 1000 Meds/Results Medications: Active Medications Generic Name Dose Route Start Last Admin Trade Name Lennyq PRN Reason Stop Dose Admin Dextrose 12.5 gm 04/17/21 11:59 04/17/21 12:36 Dextrose 50% 25 Gm/50 Ml Syringe IV PUSH 12.5 gm PRN PRN Administration Hypoglycemia Protocol Folic Acid 1 mg 04/16/21 09:00 04/18/21 09:31 Folic Acid 1 Mg Tablet PO 1 mg DAILY JASPAL Administration Gabapentin 300 mg 04/16/21 22:45 04/18/21 12:18 Gabapentin 300 Mg Capsule PO 300 mg TID JASPAL Administration Glucagon 1 mg 04/17/21 11:5
[2021-04-18 14:43] LABS: Creatinine Urine 165.1 mg/dL; Total Protein Urine Random 50 mg/dL
--- NOTE | 2021-04-18 16:13 | PM.PNNEP ---
Progress Note: A&P Assessment and Plan (1) Acute renal failure: Qualifiers: Acute renal failure type: unspecified Qualified Code(s): N17.9 - Acute kidney failure, unspecified Code(s): N17.9 - Acute kidney failure, unspecified Status: Acute Assessment and Plan: normal creatinine at baseline suspect ATN from: infection (SBP + bacteremia + COVID-19) pre-renal factors liver disease/physiology - possible HRS (decreased effective circulating volume leading to chronic pre-renal azotemia) relative hypotension renal ultrasound without any acute issues urine electrolytes pending urine eosinophils negative urine output remains suboptimal - trial of IV albumin follow repeat labs and UOP remains at high risk for needing [facility] [employer]/dialysis (2) Metabolic acidosis: Code(s): E87.2 - Acidosis Status: Acute Assessment and Plan: due to a combination of BETO + lactic acidosis follow trend consider oral sodium bicarbonate if able to take po may need IV supplementation (3) Hyponatremia: Code(s): E87.1 - Hypo-osmolality and hyponatremia Status: Acute Assessment and Plan: likely due to a combination of BETO + decompensate liver disease already NPO (so technically fluid restricted) follow trend (4) Decompensated hepatic cirrhosis: Code(s): K72.90 - Hepatic failure, unspecified without coma; K74.60 - Unspecified cirrhosis of liver Status: Acute Assessment and Plan: presumed to be secondary to ongoing alcohol use up until admission worsened by infection (SBP/bacteremia/COVID-19) continue supportive therapy GI recommendations (5) Bacteremia: Code(s): R78.81 - Bacteremia Status: Acute Assessment and Plan: blood culture with Staph on IV antibiotics follow repeat cultures due to SBP(?) (6) SBP (spontaneous bacterial peritonitis): Code(s): K65.2 - Spontaneous bacterial peritonitis Status: Acute Assessment and Plan: s/p paracentesis peritoneal fluid cell count highly suggestive of infection on antibiotic therapy (7) COVID-19 virus infection: Code(s): U07.1 - COVID-19 Status: Acute Assessment and Plan: no evidence of hypoxia at this time no need for steroids and not a candidate for remdesivir due to liver issues supportive therapy (8) Alcohol dependence: Code(s): F10.20 - Alcohol dependence, uncomplicated Status: Chronic Assessment and Plan: monitor for withdrawal symptoms Long and extensive discussion (> 20 minutes) regarding his deteriorating kidney function and the possible need for dialysis -- he appeared to voice understanding but I am unclear if he understood the seriousness of his overall condition (renal failure, liver failure, coagulopathy, Staph bacteremia, COVID-19 infection...etc) although he did change his code status to DNR/DNI. Will continue to follow. Subjective Date/time seen: 04/18/21 16:13 Noted change in code status; started on IV albumin and IV lasix gtt but no real improvement in edema/swelling; mentation seems reasonably at this time despite liver + renal failure at this time; states he is making urine but inputs/outputs by charting would suggest otherwise; no events/issues overnight or earlier this AM. Exam Narrative: General: ill appearing jaundiced male in NAD Heart: normal S1 aand S2, no rub Lungs: decreased at base Abdomen: TTP noted with distension Extremities: no cyanosis or clubbing; 2+ edema Skin: warm and dry Objective Data Vital Signs Vital Signs: Vital Signs Temp Pulse Resp BP Pulse Ox 04/18/21 12:00 35.7 C L 87 18 109/66 95 04/18/21 08:00 35.8 C L 83 18 121/68 95 04/18/21 04:00 35.8 C L 96 18 132/82 90 04/18/21 02:08 91 04/18/21 00:00 36.0 C L 91 18 117/70 93 04/17/21 20:00 36.1 C L 98 20 120/60 95 Intake/Output Intake/Output: Intake & O
--- NOTE | 2021-04-18 16:13 | P.PNNP_ITS ---
Progress Note: A&P Assessment and Plan (1) Acute renal failure: Qualifiers: Acute renal failure type: unspecified Qualified Code(s): N17.9 - Acute kidney failure, unspecified Code(s): N17.9 - Acute kidney failure, unspecified Status: Acute Assessment and Plan: * normal creatinine at baseline * suspect ATN from: * infection (SBP + bacteremia + COVID-19) * pre-renal factors * liver disease/physiology - possible HRS (decreased effective circulating volume leading to chronic pre-renal azotemia) * relative hypotension * renal ultrasound without any acute issues * urine electrolytes pending * urine eosinophils negative * urine output remains suboptimal - trial of IV albumin * follow repeat labs and UOP * remains at high risk for needing [facility]/dialysis (2) Metabolic acidosis: Code(s): E87.2 - Acidosis Status: Acute Assessment and Plan: * due to a combination of BETO + lactic acidosis * follow trend * consider oral sodium bicarbonate if able to take po * may need IV supplementation (3) Hyponatremia: Code(s): E87.1 - Hypo-osmolality and hyponatremia Status: Acute Assessment and Plan: * likely due to a combination of BETO + decompensate liver disease * already NPO (so technically fluid restricted) * follow trend (4) Decompensated hepatic cirrhosis: Code(s): K72.90 - Hepatic failure, unspecified without coma; K74.60 - Unspecified cirrhosis of liver Status: Acute Assessment and Plan: * presumed to be secondary to ongoing alcohol use up until admission worsened by infection (SBP/bacteremia/COVID-19) * continue supportive therapy * GI recommendations (5) Bacteremia: Code(s): R78.81 - Bacteremia Status: Acute Assessment and Plan: * blood culture with Staph * on IV antibiotics * follow repeat cultures * due to SBP(?) (6) SBP (spontaneous bacterial peritonitis): Code(s): K65.2 - Spontaneous bacterial peritonitis Status: Acute Assessment and Plan: * s/p paracentesis * peritoneal fluid cell count highly suggestive of infection * on antibiotic therapy (7) COVID-19 virus infection: Code(s): U07.1 - COVID-19 Status: Acute Assessment and Plan: * no evidence of hypoxia at this time * no need for steroids and not a candidate for remdesivir due to liver issues * supportive therapy (8) Alcohol dependence: Code(s): F10.20 - Alcohol dependence, uncomplicated Status: Chronic Assessment and Plan: * monitor for withdrawal symptoms Long and extensive discussion (> 20 minutes) regarding his deteriorating kidney function and the possible need for dialysis -- he appeared to voice understanding but I am unclear if he understood the seriousness of his overall condition (renal failure, liver failure, coagulopathy, Staph bacteremia, COVID- 19 infection...etc) although he did change his code status to DNR/DNI. Will continue to follow. Subjective Date/time seen: 04/18/21 16:13 Noted change in code status; started on IV albumin and IV lasix gtt but no real improvement in edema/swelling; mentation seems reasonably at this time despite liver + renal failure at this time; states he is making urine but inputs/outputs by charting would suggest otherwise; no events/issues overnight or earlier this AM. Exam Narrative: General: ill appearing jaundiced male in NAD Heart: normal S1 aand S2, no rub Lungs: decreased at base
[2021-04-18 17:56] LABS: Glucose Point of Care 100 mg/dl (65-105)
[2021-04-18] MEDS: ALBUMIN HUMAN 25% 12.5 GM/50ML 50 ML IVPB (18:46)
[2021-04-19] VITALS: BP 121/61; PULSE 93; RESP 18; TEMP 36.2; O2SAT 98
[2021-04-19 00:24] LABS: Glucose Point of Care 91 mg/dl (65-105)
[2021-04-19] MEDS: ALBUMIN HUMAN 25% 12.5 GM/50ML 50 ML IVPB ×5 (01:08→23:38)
[2021-04-19 04:00] VITALS: BP 111/48; PULSE 83; PULSE 89; RESP 18; TEMP 36.2; O2SAT 96
[2021-04-19 06:42] LABS: Glucose Point of Care 216 mg/dl (65-105)
[2021-04-19 08:00] VITALS: BP 139/74; PULSE 87; PULSE 93; RESP 14; TEMP 36.2; O2SAT 95
[2021-04-19 08:02] LABS: Alanine Aminotransferase 65 U/L (4-50); Albumin Level 3.2 g/dL (3.5-5.1); Alkaline Phosphatase 191 U/L (38-126); Anion Gap 19 mmol/L (8-16); Aspartate Amino Transferase 332 U/L (17-59); Calcium 6.3 mg/dL (8.4-10.2); Carbon Dioxide 13 mmol/L (22-30); Chloride 95 mmol/L (98-107); Glucose 67 mg/dL (65-110); Potassium 5.3 mmol/L (3.4-5.0); Sodium 127 mmol/L (137-145)
[2021-04-19 09:28] LABS: Blood Urea Nitrogen 140 mg/dL (9-20); Estimated CRCL calculation 27 ml/min; Estimated Glomerular Filt Rate 16
[2021-04-19] MEDS: LACTULOSE 20 GM/30 ML UDC PO ×3 (09:55→16:47)
[2021-04-19] MEDS: PANTOPRAZOLE SODIUM IV 40 MG VIAL IV PUSH (09:55)
[2021-04-19] MEDS: THIAMINE HCL 200 MG/2 ML VIAL 100 MG IV PUSH (09:56)
[2021-04-19] MEDS: THIAMINE HCL 100 MG TABLET PO (09:57)
[2021-04-19] MEDS: GABAPENTIN 300 MG CAPSULE PO ×3 (09:57→16:47)
[2021-04-19] MEDS: FOLIC ACID 1 MG TABLET PO (09:58)
[2021-04-19] MEDS: rifAXIMin 550 MG TABLET PO ×2 (09:58→20:50)
--- NOTE | 2021-04-19 10:20 | PM.IMPN ---
Progress Note: A&P Assessment and Plan (1) Decompensated hepatic cirrhosis: Code(s): K72.90 - Hepatic failure, unspecified without coma; K74.60 - Unspecified cirrhosis of liver Status: Acute Assessment and Plan: Full liquid diet advance as tolerated Daily intake and output Start Lasix drip and albumin drip on 04/18/2021 GI was consulted I think patient has anasarca from liver disease Patient will benefit from Lasix drip and albumin drip Pending final recommendation from GI and Nephrology for further management regarding Lasix albumin drip (2) Acute alcoholic hepatitis: Code(s): K70.10 - Alcoholic hepatitis without ascites Status: Acute Assessment and Plan: It was noted patient with an increment of his AST and known alcohol consumption recently Continue to trend liver enzymes High risk for mortality Supportive care (3) Acute kidney injury: Code(s): N17.9 - Acute kidney failure, unspecified Status: Acute Assessment and Plan: Patient with granular casts present in the urinalysis Ferguson catheter has been placed Suspect ATN as well as likely hepatorenal syndrome Will discontinue spironolactone Will discontinue beta-roderick Continue albumin/Lasix drip follow CMP will follow nephrology recommendation (4) SBP (spontaneous bacterial peritonitis): Code(s): K65.2 - Spontaneous bacterial peritonitis Status: Acute Assessment and Plan: Diagnostic paracentesis concern for spontaneous bacterial peritonitis Started on ceftriaxone 2 g IV daily (5) Hyponatremia: Code(s): E87.1 - Hypo-osmolality and hyponatremia Status: Acute Assessment and Plan: Likely secondary to liver disease (6) Hepatic encephalopathy: Code(s): K72.90 - Hepatic failure, unspecified without coma Status: Acute Assessment and Plan: Continue lactulose (7) Coagulopathy: Code(s): D68.9 - Coagulation defect, unspecified Status: Acute Assessment and Plan: Secondary to liver disease Received vitamin K (8) Thrombocytopenia: Code(s): D69.6 - Thrombocytopenia, unspecified Status: Acute Assessment and Plan: Likely secondary to liver disease Continue to monitor (9) Pneumonia due to COVID-19 virus: Code(s): U07.1 - COVID-19; J12.82 - Pneumonia due to coronavirus disease 2018 Status: Acute Assessment and Plan: Patient not a candidate for remdesivir due to liver disease Supportive care (10) Tobacco dependence: Code(s): F17.200 - Nicotine dependence, unspecified, uncomplicated Status: Acute Assessment and Plan: Patient has received counseling on numerous occasions Follow-up in outpatient setting (11) Alcohol dependence: Code(s): F10.20 - Alcohol dependence, uncomplicated Status: Chronic Assessment and Plan: CIWA protocol as needed (12) Normochromic normocytic anemia: Code(s): D64.9 - Anemia, unspecified Status: Acute Assessment and Plan: Continue to monitor Transfuse as needed (13) Staphylococcus sepsis: Code(s): A41.2 - Sepsis due to unspecified staphylococcus Status: Acute Assessment and Plan: Continue IV vancomycin for now Pending final culture CT scan abdomen chest and pelvis Echo If noncontributory may need cardiology eval for PEGGY Subjective Date/time seen: 04/19/21 10:20 Interval history: 45 years old male with past medical history of chronic alcoholism liver cirrhosis presented to the hospital with altered mental status generalized weakness was found to have acute on chronic renal failure acute hepatitis admitted for further evaluation and treatment Patient feels weak Patient high risk for mortality Discussed with the patient Discussed with the nurse Patient want to be DNR DNI patient is okay with pressors and admission to ICU for medical treatment Patient want his girlfriend has a [id number] if
[2021-04-19] MEDS: FUROSEMIDE INJ 40 MG/4 ML VIAL IV PUSH (11:02)
[2021-04-19 11:37] LABS: Eosinophils Percent Auto 0.1 % (0-4.4); Hematocrit 23.8 % (42.0-52.0); Hemoglobin 8.2 g/dL (14.0-18.0); Immature Granulocyte Absolute 0.81 K/mm3 (0.00-0.031); Immature Granulocyte Percent A 2.9 % (0-0.5); Immature Platelet Fraction Pct 10.2 % (0.9-11.2); Lymphocytes Absolute Auto 1.52 K/mm3 (0.9-3.2); Lymphocytes Percent Auto 5.4 % (18.3-44.2); Mean Corpuscular HGB Conc 34.5 g/dl (32-36); Mean Corpuscular Hemoglobin 34.9 pg (26-34); Mean Corpuscular Volume 101.3 fl (80-100); Mean Platelet Volume 12.6 fl (7.4-10.4); Monocytes Absolute Auto 2.5 K/mm3 (0.1-0.6); Monocytes Percent Auto 8.8 % (2.6-8.5); Neutrophils Absolute Auto 23.3 K/mm3 (1.3-6.7); Neutrophils Percent Auto 82.8 % (45.5-73.1); Nucleated Red Blood Cells Perc 0.1 % (0.0-0.2); Platelet Count Result 34 k/mm3 (150-375); Red Blood Count 2.35 M/mm3 (4.6-6.20); Red Cell Distribution Width 16.4 % (11.5-14.5); White Blood Count 28.1 K/mm3 (4.5-10.0)
--- NOTE | 2021-04-19 11:40 | PM.CNCAR ---
Assessment and Plan Additional Plan -altered mental status -severe leukocytosis -acute kidney injury -COVID positive -Staphylococcus bacteremia This is 45-year-old patient with past medical history of liver cirrhosis presents to hospital with altered mental status, weakness and was found to have leukocytosis, COVID, blood cultures positive for Staphylococcus. His echocardiogram overall looked unremarkable. At this time we recommend to continue treatment for Staphylococcus bacteremia and maybe in 6 weeks from now we can do transesophageal echocardiogram. This is only to be done if Anesthesia is comfortable administering sedation. I do not feel % administering sedation to this patient. History of Present Illness History of Present Illness Consult date/time: Date of service 04/19/21 11:40 Requesting physician: Pat Rivera M.A., MD Consult reason: Other (Possible endocarditis) Reason For Visit: Liver Failure,Acute Renal Failure,Pneumonia,Hepati Narrative: This is a 45-year-old male with past medical history significant for alcohol dependence, hepatic cirrhosis, ascites, congestive heart failure, portal hypertension, tobacco dependence. Patient presented to the emergency room due to altered mental status, worsening jaundice, bilateral lower extremity swelling ,abdomen distension. Cardiology consultation was called because his blood culture grew Staphylococcus aureus. He is COVID positive. At this time he is being treated for acute alcoholic hepatitis, peritonitis and acute kidney injury. Currently he is feeling tired and fatigued. He does have abdominal distention, lower extremity edema. Denies chest pains. White cell count on admission 40k Serum creatinine on admission 4.3 with a baseline 0.8 Serum sodium on admission 126 Echocardiogram during this admission: 2. Mild left ventricular enlargement with normal wall thickness. The left ventricular systolic function appears to be mildly diminished, visual ejection fraction 45-50%. There are no segmental wall motion abnormalities. Normal diastolic function. The global longitudinal strain is-23%, which is normal. 3. Left atrial chamber dimension is moderately enlarged. 4. No significant valve disease. 5. Normal sinus rhythm. Review of Systems Constitutional: Constitutional: Reports fatigue and Reports lethargy ENT: Denies epistaxis Cardiovascular: Cardiovascular: Denies chest pain and Reports pedal edema Respiratory: Respiratory: Denies cough Gastrointestinal: Gastrointestinal: Reports bloating and Denies hematemesis Genitourinary: Genitourinary: Denies hematuria Musculoskeletal: Musculoskeletal: Denies joint swelling Integumentary/Breasts: Skin/Breast: Denies pruritus and Denies rash Neurologic: Denies confusion and Denies headache(s) Psychiatric: Psychiatric: Denies anxiety Hematologic/Lymphatic: Hematologic/Lymphatic: Denies easy bruising Allergic/Immunologic: Allergic/Immunologic: Denies lip swelling PMFSH Past Medical History Medical History CHF (congestive heart failure) Cirrhosis Colon cancer screening 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 He drinks 3 days a week and usually drinks 2 mixed drinks with 3 but fireball shots. No IV drugs or street drugs but does do marijuana. He would like to be a full code. In
[2021-04-19 11:42] LABS: Myoglobin, Urine <27 mcg/L (<28)
[2021-04-19 12:00] VITALS: BP 121/58; PULSE 86; PULSE 89; RESP 14; TEMP 36.2; O2SAT 97
[2021-04-19 12:11] LABS: Magnesium 2.3 mg/dL (1.6-2.3)
[2021-04-19 12:16] LABS: Platelet Estimate Decreased (Adequate)
[2021-04-19 12:17] LABS: Anisocytosis 1+ (NORMAL)
[2021-04-19 12:18] LABS: Glucose Point of Care 156 mg/dl (65-105)
[2021-04-19 12:18] LABS: Acanthocytes 2+ (NORMAL); Burr Cells 1+ (NORMAL); Helmet Cells 1+ (NORMAL); Ovalocytes 1+ (NORMAL)
--- NOTE | 2021-04-19 15:26 | WPDGIPROGNO ---
Progress Note: A&P Assessment and Plan (1) Decompensated hepatic cirrhosis: Code(s): K72.90 - Hepatic failure, unspecified without coma; K74.60 - Unspecified cirrhosis of liver Status: Acute Assessment and Plan: hcv and alcohol liver disease with high meld score complicated with SBP, worsening renal failure, coagulopathy, encephalopathy high risk of mortality, prognosis is guarded liquid diet and supplements with diet (2) Acute alcoholic hepatitis: Code(s): K70.10 - Alcoholic hepatitis without ascites Status: Acute Assessment and Plan: can not use steroids because active infection supportive care (3) Staphylococcus sepsis: Code(s): A41.2 - Sepsis due to unspecified staphylococcus Status: Acute Assessment and Plan: staph bacteremia repeat blood cultures positive again- management by primary, he is on antibiotics, probably ID consult (4) Acute kidney injury: Code(s): N17.9 - Acute kidney failure, unspecified Status: Acute Assessment and Plan: ATN vs HRS nephrology on board discontinue diuretics and agree with using iv albumin (5) SBP (spontaneous bacterial peritonitis): Code(s): K65.2 - Spontaneous bacterial peritonitis Status: Acute Assessment and Plan: on antibiotics and iv albumin (6) COVID-19 virus infection: Code(s): U07.1 - COVID-19 Status: Acute (7) Coagulopathy: Code(s): D68.9 - Coagulation defect, unspecified Status: Acute Assessment and Plan: persistent coagulopathy he is on vitamin k (8) Thrombocytopenia: Code(s): D69.6 - Thrombocytopenia, unspecified Status: Acute (9) Hepatic encephalopathy: Code(s): K72.90 - Hepatic failure, unspecified without coma Status: Acute Assessment and Plan: awake and alert, on lactulose and xifaxan Subjective Date/time seen: 04/19/21 15:26 Interval history: no major changes, still with abd pain. Repeat blood cultures again with + bacteria Review of Systems Review of Systems: All systems reviewed & are unremarkable except as noted in HPI and below Exam Const: Other: acutely ill, jaundice HENMT: Mouth: Yes dry mucous membranes Eyes: Other: icteric sclerae Neck: Neck: supple Resp: Auscultation: clear to auscultation bilaterally Cardio: Rate: regular rate GI: Inspection: distended GI Palp: Yes Tenderness to palpation present (GI) Percussion: Yes Fluid wave present Auscultation: normal bowel sounds Other: no rebound Urinary Catheter: Urinary Catheter: patent and draining Skin: Other: jaundice, dry skin Neuro: Speech: normal speech Extrem: General: pedal edema Psych: Affect: Anxious affect present Objective Data Vital Signs Vital Signs: Vital Signs - 24 hr 04/18/21 16:00 04/18/21 20:00 04/19/21 00:00 Temperature 97.3 F L 97.0 F L 97.1 F L Pulse Rate 84 88 93 Respiratory Rate 16 18 18 Blood Pressure 122/59 L 116/60 121/61 Pulse Oximetry 93 98 98 04/19/21 04:00 04/19/21 08:00 04/19/21 12:00 Temperature 97.2 F L 97.2 F L 97.2 F L Pulse Rate 89 93 86 Respiratory Rate 18 14 14 Blood Pressure 111/48 L 139/74 121/58 L Pulse Oximetry 96 95 97 Intake/Output Intake/Output: Intake & Output 04/16/21 04/17/21 04/18/21 04/19/21 23:59 23:59 23:59 23:59 Intake Total 2392 3173 2800 907.2 Output Total 500 500 300 200 Balance 1892 2673 2500 707.2 Meds/Results Medications: Active Medications Generic Name Dose Route Start Last Admin Trade Name Freq PRN Reason Stop Dose Admin Dextrose 12.5 gm 04/17/21 11:59 04/17/21 12:36 Dextrose 50% 25 Gm/50 Ml Syringe IV PUSH 12.5 gm PRN PRN Administration Hypoglycemia Protocol Folic Acid 1 mg 04/16/21 09:00 04/19/21 09:58 Folic Acid 1 Mg Tablet PO 1 mg DAILY JASPAL Administration Gabapentin 300 mg 04/16/21 22:45 04/19/21 12:38 Gabapentin 300 Mg Capsule PO 300 mg TID JASPAL Administration Glucag
[2021-04-19 16:00] VITALS: BP 137/65; PULSE 87; PULSE 92; RESP 14; TEMP 36.1; O2SAT 95
[2021-04-19 17:59] LABS: Glucose Point of Care 163 mg/dl (65-105)
--- NOTE | 2021-04-19 18:09 | PM.PNNEP ---
Progress Note: A&P Assessment and Plan (1) Acute renal failure: Qualifiers: Acute renal failure type: unspecified Qualified Code(s): N17.9 - Acute kidney failure, unspecified Code(s): N17.9 - Acute kidney failure, unspecified Status: Acute Assessment and Plan: normal creatinine at baseline suspect ATN from: infection (SBP + bacteremia + COVID-19) pre-renal factors liver disease/physiology - possible HRS (decreased effective circulating volume leading to chronic pre-renal azotemia) relative hypotension renal ultrasound without any acute issues urine electrolytes pending urine eosinophils negative urine output remains suboptimal - trial of IV albumin follow repeat labs and UOP remains at high risk for needing [employer]/dialysis (2) Metabolic acidosis: Code(s): E87.2 - Acidosis Status: Acute Assessment and Plan: due to a combination of BETO + lactic acidosis follow trend consider oral sodium bicarbonate if able to take po may need IV supplementation (3) Hyponatremia: Code(s): E87.1 - Hypo-osmolality and hyponatremia Status: Acute Assessment and Plan: likely due to a combination of BETO + decompensated liver disease fluid restriction as tolerated follow trend (4) Decompensated hepatic cirrhosis: Code(s): K72.90 - Hepatic failure, unspecified without coma; K74.60 - Unspecified cirrhosis of liver Status: Acute Assessment and Plan: presumed to be secondary to ongoing alcohol use up until admission worsened by infection (SBP/bacteremia/COVID-19) continue supportive therapy GI recommendations (5) Bacteremia: Code(s): R78.81 - Bacteremia Status: Acute Assessment and Plan: blood culture with Staph on IV antibiotics follow repeat cultures due to SBP(?) (6) SBP (spontaneous bacterial peritonitis): Code(s): K65.2 - Spontaneous bacterial peritonitis Status: Acute Assessment and Plan: s/p paracentesis peritoneal fluid cell count highly suggestive of infection on antibiotic therapy (7) COVID-19 virus infection: Code(s): U07.1 - COVID-19 Status: Acute Assessment and Plan: no evidence of hypoxia at this time no need for steroids and not a candidate for remdesivir due to liver issues supportive therapy (8) Alcohol dependence: Code(s): F10.20 - Alcohol dependence, uncomplicated Status: Chronic Assessment and Plan: monitor for withdrawal symptoms Will continue to follow. Subjective Date/time seen: 04/19/21 18:09 No real significant change at this time; renal function has not really improved despite use of IV albumin, diuretics...etc; remains persistently bacteremic and with leukocytosis despite appropriate antibiotic therapy; still with intermittent abdominal pain and reduced urine output; Cardiology recommendations noted; mentation seems stable despite his multitude of medical issues. Exam Narrative: General: ill appearing jaundiced male in NAD Heart: normal S1 and S2, no rub Lungs: decreased at base Abdomen: TTP noted with distension Extremities: no cyanosis or clubbing; 2+ edema Skin: warm and intact Objective Data Vital Signs Vital Signs: Vital Signs Temp Pulse Resp BP Pulse Ox 04/19/21 16:00 36.1 C L 92 14 137/65 95 04/19/21 12:00 36.2 C L 86 14 121/58 L 97 04/19/21 08:00 36.2 C L 93 14 139/74 95 04/19/21 04:00 36.2 C L 89 18 111/48 L 96 04/19/21 00:00 36.2 C L 93 18 121/61 98 04/18/21 20:00 36.1 C L 88 18 116/60 98 Intake/Output Intake/Output: Intake & Output 04/16/21 04/17/21 04/18/21 04/19/21 23:59 23:59 23:59 23:59 Intake Total 2392 3173 2800 1457.2 Output Total 500 500 300 425 Balance 1892 2673 2500 1032.2 Meds/Results Medications: Active Medications Generic Name Dose Route Start Last Admin Trade Name Freq PRN Reason Stop Dose Admin
--- NOTE | 2021-04-19 18:09 | P.PNNP_ITS ---
Progress Note: A&P Assessment and Plan (1) Acute renal failure: Qualifiers: Acute renal failure type: unspecified Qualified Code(s): N17.9 - Acute kidney failure, unspecified Code(s): N17.9 - Acute kidney failure, unspecified Status: Acute Assessment and Plan: * normal creatinine at baseline * suspect ATN from: * infection (SBP + bacteremia + COVID-19) * pre-renal factors * liver disease/physiology - possible HRS (decreased effective circulating volume leading to chronic pre-renal azotemia) * relative hypotension * renal ultrasound without any acute issues * urine electrolytes pending * urine eosinophils negative * urine output remains suboptimal - trial of IV albumin * follow repeat labs and UOP * remains at high risk for needing [employer]ER/dialysis (2) Metabolic acidosis: Code(s): E87.2 - Acidosis Status: Acute Assessment and Plan: * due to a combination of BETO + lactic acidosis * follow trend * consider oral sodium bicarbonate if able to take po * may need IV supplementation (3) Hyponatremia: Code(s): E87.1 - Hypo-osmolality and hyponatremia Status: Acute Assessment and Plan: * likely due to a combination of BETO + decompensated liver disease * fluid restriction as tolerated * follow trend (4) Decompensated hepatic cirrhosis: Code(s): K72.90 - Hepatic failure, unspecified without coma; K74.60 - Unspecified cirrhosis of liver Status: Acute Assessment and Plan: * presumed to be secondary to ongoing alcohol use up until admission worsened by infection (SBP/bacteremia/COVID-19) * continue supportive therapy * GI recommendations (5) Bacteremia: Code(s): R78.81 - Bacteremia Status: Acute Assessment and Plan: * blood culture with Staph * on IV antibiotics * follow repeat cultures * due to SBP(?) (6) SBP (spontaneous bacterial peritonitis): Code(s): K65.2 - Spontaneous bacterial peritonitis Status: Acute Assessment and Plan: * s/p paracentesis * peritoneal fluid cell count highly suggestive of infection * on antibiotic therapy (7) COVID-19 virus infection: Code(s): U07.1 - COVID-19 Status: Acute Assessment and Plan: * no evidence of hypoxia at this time * no need for steroids and not a candidate for remdesivir due to liver issues * supportive therapy (8) Alcohol dependence: Code(s): F10.20 - Alcohol dependence, uncomplicated Status: Chronic Assessment and Plan: * monitor for withdrawal symptoms Will continue to follow. Subjective Date/time seen: 04/19/21 18:09 No real significant change at this time; renal function has not really improved despite use of IV albumin, diuretics...etc; remains persistently bacteremic and with leukocytosis despite appropriate antibiotic therapy; still with intermittent abdominal pain and reduced urine output; Cardiology recommendations noted; mentation seems stable despite his multitude of medical issues. Exam Narrative: General: ill appearing jaundiced male in NAD Heart: normal S1 and S2, no rub Lungs: decreased at base Abdomen: TTP noted with distension Extremities: no cyanosis or clubbing; 2+ edema Skin: warm and intact Objective Data Vital Signs Vital Signs: Vital Signs Temp Pulse Resp BP Pulse Ox 04/19/21 16:00 36.1 C L 9
[2021-04-19 19:29] LABS: Amylase Peritoneal Fluid 30 U/L; Lipase Peritoneal Fluid 138 U/L (<10)
[2021-04-19 20:00] VITALS: BP 113/71; PULSE 92; PULSE 93; PULSE 99; RESP 14; RESP 18; TEMP 36.3; O2SAT 95; O2SAT 98
[2021-04-19 20:32] LABS: Glucose Peritoneal Fluid 59 mg/dL; LDH Peritoneal Fluid 46 U/L (<63); Total Protein Peritoneal Fluid <3.0 g/dL
[2021-04-19 23:45] LABS: Glucose Point of Care 102 mg/dl (65-105)
[2021-04-20] VITALS: BP 121/58; PULSE 82; PULSE 89; RESP 20; TEMP 36.6; O2SAT 94
[2021-04-20 00:09] LABS: Creatinine Urine 141.3 mg/dL
[2021-04-20 01:15] LABS: Sodium Urine Random < 5 meq/L
[2021-04-20 04:00] VITALS: BP 112/57; PULSE 94; RESP 18; TEMP 36.5; O2SAT 100
[2021-04-20] MEDS: ALBUMIN HUMAN 25% 12.5 GM/50ML 50 ML IVPB ×3 (05:04→17:51)
[2021-04-20 07:23] LABS: Basophils Absolute Auto 0.1 K/mm3 (0.0-0.1); Basophils Percent Auto 0.5 % (0.2-1.2); Eosinophils Percent Auto 0.1 % (0-4.4); Hematocrit 23.8 % (42.0-52.0); Immature Granulocyte Absolute 1.07 K/mm3 (0.00-0.031); Lymphocytes Absolute Auto 1.53 K/mm3 (0.9-3.2); Lymphocytes Percent Auto 5.7 % (18.3-44.2); Mean Corpuscular HGB Conc 33.6 g/dl (32-36); Mean Corpuscular Hemoglobin 34.2 pg (26-34); Mean Corpuscular Volume 101.7 fl (80-100); Mean Platelet Volume 12.6 fl (7.4-10.4); Monocytes Absolute Auto 2.9 K/mm3 (0.1-0.6); Monocytes Percent Auto 10.9 % (2.6-8.5); Neutrophils Absolute Auto 21.2 K/mm3 (1.3-6.7); Neutrophils Percent Auto 78.8 % (45.5-73.1); Nucleated Red Blood Cells Perc 0.1 % (0.0-0.2); Platelet Count Result 31 k/mm3 (150-375); Red Blood Count 2.34 M/mm3 (4.6-6.20); Red Cell Distribution Width 16.6 % (11.5-14.5); White Blood Count 26.9 K/mm3 (4.5-10.0)
[2021-04-20 07:47] LABS: Glucose Point of Care 70 mg/dl (65-105)
[2021-04-20 07:52] LABS: Alanine Aminotransferase 63 U/L (4-50); Albumin Level 3.1 g/dL (3.5-5.1); Alkaline Phosphatase 143 U/L (38-126); Anion Gap 18 mmol/L (8-16); Aspartate Amino Transferase 259 U/L (17-59); Bilirubin,Total 33.3 mg/dL (0.2-1.3); Calcium 6.8 mg/dL (8.4-10.2); Carbon Dioxide 15 mmol/L (22-30); Chloride 93 mmol/L (98-107); Glucose 73 mg/dL (65-110); Magnesium 2.5 mg/dL (1.6-2.3); Potassium 5.1 mmol/L (3.4-5.0); Sodium 126 mmol/L (137-145)
[2021-04-20 08:00] VITALS: BP 107/47; PULSE 90; PULSE 93; RESP 21; TEMP 36.4; O2SAT 96
[2021-04-20 08:48] LABS: Glucose Point of Care 137 mg/dl (65-105)
[2021-04-20] MEDS: THIAMINE HCL 100 MG TABLET PO (09:49)
[2021-04-20] MEDS: rifAXIMin 550 MG TABLET PO ×2 (09:49→21:16)
[2021-04-20] MEDS: PANTOPRAZOLE SODIUM IV 40 MG VIAL IV PUSH (09:50)
[2021-04-20] MEDS: LACTULOSE 20 GM/30 ML UDC PO ×3 (09:50→17:50)
[2021-04-20] MEDS: FOLIC ACID 1 MG TABLET PO (09:50)
[2021-04-20] MEDS: THIAMINE HCL 200 MG/2 ML VIAL 100 MG IV PUSH (09:50)
[2021-04-20] MEDS: GABAPENTIN 300 MG CAPSULE PO ×3 (09:50→17:51)
--- NOTE | 2021-04-20 10:17 | PM.IMPN ---
Progress Note: A&P Assessment and Plan (1) Decompensated hepatic cirrhosis: Code(s): K72.90 - Hepatic failure, unspecified without coma; K74.60 - Unspecified cirrhosis of liver Status: Acute Assessment and Plan: Full liquid diet advance as tolerated Daily intake and output Start Lasix drip and albumin drip on 04/18/2021 GI was consulted I think patient has anasarca from liver disease Patient will benefit from Lasix drip and albumin drip Nephrology following GI following (2) Acute alcoholic hepatitis: Code(s): K70.10 - Alcoholic hepatitis without ascites Status: Acute Assessment and Plan: It was noted patient with an increment of his AST and known alcohol consumption recently Continue to trend liver enzymes High risk for mortality Supportive care (3) Acute kidney injury: Code(s): N17.9 - Acute kidney failure, unspecified Status: Acute Assessment and Plan: Patient with granular casts present in the urinalysis Ferguson catheter has been placed Suspect ATN as well as likely hepatorenal syndrome Will discontinue spironolactone Will discontinue beta-roderick Continue albumin/Lasix drip follow CMP will follow nephrology recommendation (4) SBP (spontaneous bacterial peritonitis): Code(s): K65.2 - Spontaneous bacterial peritonitis Status: Acute Assessment and Plan: Diagnostic paracentesis concern for spontaneous bacterial peritonitis Started on ceftriaxone 2 g IV daily (5) Hyponatremia: Code(s): E87.1 - Hypo-osmolality and hyponatremia Status: Acute Assessment and Plan: Likely secondary to liver disease (6) Hepatic encephalopathy: Code(s): K72.90 - Hepatic failure, unspecified without coma Status: Acute Assessment and Plan: Continue lactulose (7) Coagulopathy: Code(s): D68.9 - Coagulation defect, unspecified Status: Acute Assessment and Plan: Secondary to liver disease Received vitamin K (8) Thrombocytopenia: Code(s): D69.6 - Thrombocytopenia, unspecified Status: Acute Assessment and Plan: Likely secondary to liver disease Continue to monitor (9) Pneumonia due to COVID-19 virus: Code(s): U07.1 - COVID-19; J12.82 - Pneumonia due to coronavirus disease 2019 Status: Acute Assessment and Plan: Patient not a candidate for remdesivir due to liver disease Supportive care (10) Tobacco dependence: Code(s): F17.200 - Nicotine dependence, unspecified, uncomplicated Status: Acute Assessment and Plan: Patient has received counseling on numerous occasions Follow-up in outpatient setting (11) Alcohol dependence: Code(s): F10.20 - Alcohol dependence, uncomplicated Status: Chronic Assessment and Plan: CIWA protocol as needed (12) Normochromic normocytic anemia: Code(s): D64.9 - Anemia, unspecified Status: Acute Assessment and Plan: Continue to monitor Transfuse as needed (13) Staphylococcus sepsis: Code(s): A41.2 - Sepsis due to unspecified staphylococcus Status: Acute Assessment and Plan: Continue IV vancomycin for now Pending final culture CT scan abdomen chest and pelvis shows pneumonia pulmonary edema large volume ascites Echo If noncontributory may need cardiology eval for PEGGY Subjective Date/time seen: 04/20/21 10:17 Interval history: 45 years old male with past medical history of chronic alcoholism liver cirrhosis presented to the hospital with altered mental status generalized weakness was found to have acute on chronic renal failure acute hepatitis admitted for further evaluation and treatment Patient feels weak Patient high risk for mortality Discussed with the patient Discussed with the nurse Patient want to be DNR DNI patient is okay with pressors and admission to ICU for medical treatment Patient want his girlfriend has a [id number] if he can not make d
[2021-04-20 10:39] LABS: Blood Urea Nitrogen 149 mg/dL (9-20)
[2021-04-20 11:00] LABS: Estimated CRCL calculation 23 ml/min; Estimated Glomerular Filt Rate 13
--- NOTE | 2021-04-20 11:36 | P.PNNP_ITS ---
Progress Note: A&P Assessment and Plan (1) Acute renal failure: Qualifiers: Acute renal failure type: unspecified Qualified Code(s): N17.9 - Acute kidney failure, unspecified Code(s): N17.9 - Acute kidney failure, unspecified Status: Acute Assessment and Plan: * normal creatinine at baseline * suspect ATN from: * infection [SBP + bacteremia (endocarditis?) + COVID-19] * pre-renal factors * liver disease/physiology - possible HRS (decreased effective circulating volume leading to chronic pre-renal azotemia) * relative hypotension * renal ultrasound without any acute issues * urine electrolytes consistent with pre-renal azotemia * doubt this represents volume depletion since he is volume overloaded * rather, this probably more reflective of his underlying liver disease (although I suppose he could have a component of intravascular volume depletion) * urine eosinophils negative * urine output remains suboptimal - trial of IV albumin + IV diuretics not very helpful; re-attempt?? * follow repeat labs and UOP * remains at high risk for needing BED LASTER/dialysis (2) Metabolic acidosis: Code(s): E87.2 - Acidosis Status: Acute Assessment and Plan: * due to a combination of BETO + lactic acidosis * follow trend * started on oral sodium bicarbonate * I had considered starting bicarb fluids but I worry that could make his edema/swelling/fluid status worse * follow trend of lactic acid (3) Hyponatremia: Code(s): E87.1 - Hypo-osmolality and hyponatremia Status: Acute Assessment and Plan: * likely due to a combination of BETO + decompensated liver disease * fluid restriction as tolerated * follow trend (4) Decompensated hepatic cirrhosis: Code(s): K72.90 - Hepatic failure, unspecified without coma; K74.60 - Unspecified cirrhosis of liver Status: Acute Assessment and Plan: * presumed to be secondary to ongoing alcohol use up until admission worsened by infection (SBP/bacteremia/COVID-19) * continue supportive therapy * GI recommendations (5) Bacteremia: Code(s): R78.81 - Bacteremia Status: Acute Assessment and Plan: * blood culture with Staph * on IV antibiotics * follow repeat cultures * due to SBP(?) * TTE without endocarditis; high risk for PEGGY per Cardiology (6) SBP (spontaneous bacterial peritonitis): Code(s): K65.2 - Spontaneous bacterial peritonitis Status: Acute Assessment and Plan: * s/p paracentesis * peritoneal fluid cell count c/w with this * on antibiotic therapy (7) COVID-19 virus infection: Code(s): U07.1 - COVID-19 Status: Acute Assessment and Plan: * no evidence of hypoxia at this time * no need for steroids and not a candidate for remdesivir due to liver issues * supportive therapy (8) Alcohol dependence: Code(s): F10.20 - Alcohol dependence, uncomplicated Status: Chronic Assessment and Plan: * monitor for withdrawal symptoms Attempted to voice my concerns about his deteriorating renal function and the possible need for BED LASTER/dialysis but he did not want to talk about this....dialysis would be challenging in his clinical situation due to his coagulopathy, and persistent infection/bacteremia complicated by COVID-19; surprisingly, no evidence of critical electrolytes or uremia but I suspect this will eventually become an issue. Will continue to follow. Subjective Date/time seen: 04/20/21
--- NOTE | 2021-04-20 11:36 | PM.PNNEP ---
Progress Note: A&P Assessment and Plan (1) Acute renal failure: Qualifiers: Acute renal failure type: unspecified Qualified Code(s): N17.9 - Acute kidney failure, unspecified Code(s): N17.9 - Acute kidney failure, unspecified Status: Acute Assessment and Plan: normal creatinine at baseline suspect ATN from: infection [SBP + bacteremia (endocarditis?) + COVID-19] pre-renal factors liver disease/physiology - possible HRS (decreased effective circulating volume leading to chronic pre-renal azotemia) relative hypotension renal ultrasound without any acute issues urine electrolytes consistent with pre-renal azotemia doubt this represents volume depletion since he is volume overloaded rather, this probably more reflective of his underlying liver disease (although I suppose he could have a component of intravascular volume depletion) urine eosinophils negative urine output remains suboptimal - trial of IV albumin + IV diuretics not very helpful; re-attempt?? follow repeat labs and UOP remains at high risk for needing CLINICAL TEAM MANAGER/dialysis (2) Metabolic acidosis: Code(s): E87.2 - Acidosis Status: Acute Assessment and Plan: due to a combination of BETO + lactic acidosis follow trend started on oral sodium bicarbonate I had considered starting bicarb fluids but I worry that could make his edema/swelling/fluid status worse follow trend of lactic acid (3) Hyponatremia: Code(s): E87.1 - Hypo-osmolality and hyponatremia Status: Acute Assessment and Plan: likely due to a combination of BETO + decompensated liver disease fluid restriction as tolerated follow trend (4) Decompensated hepatic cirrhosis: Code(s): K72.90 - Hepatic failure, unspecified without coma; K74.60 - Unspecified cirrhosis of liver Status: Acute Assessment and Plan: presumed to be secondary to ongoing alcohol use up until admission worsened by infection (SBP/bacteremia/COVID-19) continue supportive therapy GI recommendations (5) Bacteremia: Code(s): R78.81 - Bacteremia Status: Acute Assessment and Plan: blood culture with Staph on IV antibiotics follow repeat cultures due to SBP(?) TTE without endocarditis; high risk for PEGGY per Cardiology (6) SBP (spontaneous bacterial peritonitis): Code(s): K65.2 - Spontaneous bacterial peritonitis Status: Acute Assessment and Plan: s/p paracentesis peritoneal fluid cell count c/w with this on antibiotic therapy (7) COVID-19 virus infection: Code(s): U07.1 - COVID-19 Status: Acute Assessment and Plan: no evidence of hypoxia at this time no need for steroids and not a candidate for remdesivir due to liver issues supportive therapy (8) Alcohol dependence: Code(s): F10.20 - Alcohol dependence, uncomplicated Status: Chronic Assessment and Plan: monitor for withdrawal symptoms Attempted to voice my concerns about his deteriorating renal function and the possible need for CLINICAL TEAM MANAGER/dialysis but he did not want to talk about this....dialysis would be challenging in his clinical situation due to his coagulopathy, and persistent infection/bacteremia complicated by COVID-19; surprisingly, no evidence of critical electrolytes or uremia but I suspect this will eventually become an issue. Will continue to follow. Subjective Date/time seen: 04/20/21 11:36 No real significant change at the time; significant swelling/edema noted along with diminished urine output; blood culture remains persistently positive as well; ongoing deterioration of labs noted -- with rising levels of BUN, creatinine, potassium along persistent acidosis; surprisingly, despite his ongoing deteriorating status, his mentation status seems relatively preserved and is able to make his wishes known - he stated earlier and maintains that he wants to leave the hospital (aga
[2021-04-20 11:44] LABS: Glucose Point of Care 94 mg/dl (65-105)
[2021-04-20 12:00] VITALS: BP 129/68; PULSE 97; PULSE 98; RESP 20; TEMP 36.6; O2SAT 94
--- NOTE | 2021-04-20 12:03 | PM.PNCARD ---
Progress Note: A&P Assessment and Plan (1) Staphylococcus sepsis: Code(s): A41.2 - Sepsis due to unspecified staphylococcus Status: Acute Assessment and Plan: Presented with altered mental status and weakness. He was found to have leukocytosis, COVID +, acute liver and renal failure. Blood cultures grew S. aureus. Initially treated with Vanc but now on ceftriaxone for possible spontaneous bacterial peritonitis. See below re: ? endocarditis. (2) COVID-19 virus infection: Code(s): U07.1 - COVID-19 Status: Acute Assessment and Plan: Diagnosed on admission. Does not qualify for remdesivir because of his liver disease. Continue supportive care.. Right now doing wel on room air. Management per primary service (3) Acute kidney injury: Code(s): N17.9 - Acute kidney failure, unspecified Status: Acute Assessment and Plan: Nephrology is following appreciate their involvement and input. (4) Acute liver failure: Qualifiers: Hepatic coma status: without hepatic coma Qualified Code(s): K72.00 - Acute and subacute hepatic failure without coma Code(s): K72.00 - Acute and subacute hepatic failure without coma Status: Acute Assessment and Plan: Has alcoholic cirrhosis of the liver. Was found to be in acute liver failure on admission...he is coagulopathic with INR 5.3 now and plt 31. GI is following, appreciate their recommendations and input. Additional Plan This is a 45-year-old patient with Staph coccus bacteremia, acute liver failure, acute kidney injury who we were asked to see because of concern for endocarditis. Surface echo did not have any evidence of vegetation. However, for completeness of evaluation and to rule out endocarditis as a source of infection will need a PEGGY. Patient is high risk for sedation, would need anesthesia involvement. If patient remains hospitalized and does not leave AMA would anticipate PEGGY with anesthesia when clinically appropriate. Subjective Date/time seen: 04/20/21 12:03 Interval history: Cardiology follow-up for this 45-year-old patient with bacteremia, liver failure Date of service 04/20/2021: He is feeling okay today. He does not have any complaints. According to nursing staff he is wanting to leave AMA. Review of Systems Constitutional: Constitutional: Reports fatigue, Denies headache(s) and Reports lethargy ENT: Denies headache(s), Denies lip swelling and Denies epistaxis Cardiovascular: Cardiovascular: Denies chest pain and Reports pedal edema Respiratory: Respiratory: Denies cough Gastrointestinal: Gastrointestinal: Reports bloating and Denies hematemesis Genitourinary: Genitourinary: Denies hematuria Musculoskeletal: Musculoskeletal: Denies joint swelling Integumentary/Breasts: Skin/Breast: Denies pruritus and Denies rash Neurologic: Denies confusion and Denies headache(s) Psychiatric: Psychiatric: Denies anxiety and Denies confusion Endocrine: Endocrine: Reports fatigue Hematologic/Lymphatic: Hematologic/Lymphatic: Denies easy bruising Allergic/Immunologic: Allergic/Immunologic: Denies lip swelling Exam Const: General: No no acute distress or confusion Orientation/consciousness: No confusion HENMT: General nose exam: no epistaxis Eyes: Sclera: scleral abnormality (Scleral icterus) bilateral Neck: Neck: supple Resp: Auscultation: clear to auscultation bilaterally Cardio: Rate: regular rate Rhythm: regular rhythm Heart sounds: no murmurs GI: GI Palp: Yes Hepatomegaly present and Yes Ascites present Auscultation: normal bowel sounds Skin: General skin exam: No normal color and jaundice Rashes: no rashes noted Neuro: General: No confusion Speech: normal speech Extrem: General: edema and pedal edema Psych: Affect: normal affect Objective Data Vital Signs Vital Signs: Vital Signs - 24 hr 04/19/21 16:00 04/19/21 20:00 04/20/21 00:00 Temperature 3
--- NOTE | 2021-04-20 12:26 | WPDGIPROGNO ---
Progress Note: A&P Assessment and Plan (1) Decompensated hepatic cirrhosis: Code(s): K72.90 - Hepatic failure, unspecified without coma; K74.60 - Unspecified cirrhosis of liver Status: Acute Assessment and Plan: hcv and alcohol liver disease with high meld score complicated with SBP, worsening renal failure, coagulopathy, encephalopathy, COVID also persistent Staph infection (sensitive to ancef). 2d-echo no vegetation, patient will need at least 4-6 weeks of iv antibiotics high risk of mortality, prognosis is guarded liquid diet and supplements with diet (2) Acute alcoholic hepatitis: Code(s): K70.10 - Alcoholic hepatitis without ascites Status: Acute Assessment and Plan: can not use steroids because active infection supportive care (3) Staphylococcus sepsis: Code(s): A41.2 - Sepsis due to unspecified staphylococcus Status: Acute Assessment and Plan: staph bacteremia (alfaro sensitive) repeat blood cultures positive again- management by primary, he is on antibiotics, probably ID consult 2d-echo no vegetation (4) Acute kidney injury: Code(s): N17.9 - Acute kidney failure, unspecified Status: Acute Assessment and Plan: ATN vs HRS nephrology on board diuretic discontinued and s/p iv albumin (5) SBP (spontaneous bacterial peritonitis): Code(s): K65.2 - Spontaneous bacterial peritonitis Status: Acute Assessment and Plan: confirmed by ascitic fluid on antibiotics and already received iv albumin (6) COVID-19 virus infection: Code(s): U07.1 - COVID-19 Status: Acute (7) Coagulopathy: Code(s): D68.9 - Coagulation defect, unspecified Status: Acute Assessment and Plan: on vitamin K will repeat inr tomorrow (8) Thrombocytopenia: Code(s): D69.6 - Thrombocytopenia, unspecified Status: Acute (9) Hepatic encephalopathy: Code(s): K72.90 - Hepatic failure, unspecified without coma Status: Acute Assessment and Plan: awake and alert, on lactulose and xifaxan Subjective Date/time seen: 04/20/21 12:26 Interval history: he is awake and alert, still some abdominal pain. He is frustrated and told me to leave him alone Review of Systems Review of Systems: All systems reviewed & are unremarkable except as noted in HPI and below Exam Const: Other: acutely ill, jaundice HENMT: Mouth: Yes dry mucous membranes Eyes: Other: icteric sclerae Neck: Neck: supple Resp: Auscultation: clear to auscultation bilaterally Cardio: Rate: regular rate GI: Inspection: distended GI Palp: Yes Tenderness to palpation present (GI) Percussion: Yes Fluid wave present Auscultation: normal bowel sounds Other: no rebound Urinary Catheter: Urinary Catheter: patent and draining Skin: Other: jaundice Neuro: Speech: normal speech Motor exam (neuro): Normal motor muscle tone present throughout Extrem: General: pedal edema Psych: Affect: Anxious affect present Other: awake and alert x3 Objective Data Vital Signs Vital Signs: Vital Signs - 24 hr 04/19/21 16:00 04/19/21 20:00 04/20/21 00:00 Temperature 97.0 F L 97.4 F L 97.8 F Pulse Rate 92 99 89 Respiratory Rate 14 18 20 Blood Pressure 137/65 113/71 121/58 L Pulse Oximetry 95 98 94 04/20/21 04:00 04/20/21 08:00 Temperature 97.7 F 97.5 F L Pulse Rate 94 90 Respiratory Rate 18 21 H Blood Pressure 112/57 L 107/47 L Pulse Oximetry 100 96 Intake/Output Intake/Output: Intake & Output 04/17/21 04/18/21 04/19/21 04/20/21 23:59 23:59 23:59 23:59 Intake Total 3173 2800 1457.2 900 Output Total 500 300 425 200 Balance 2673 2500 1032.2 700 Meds/Results Medications: Active Medications Generic Name Dose Route Start Last Admin Trade Name Freq PRN Reason Stop Dose Admin Dextrose 12.5 gm 04/17/21 11:59 04/17/21 12:36 Dextrose 50% 25 Gm/50 Ml Syringe IV PUSH 12.5 gm PRN PRN Administration Hypoglycemia
[2021-04-20] MEDS: CALCIUM GLUC 2,000 MG/NS 100ML 2,000 MG/100 ML BAG 100 MG IVPB (12:47)
[2021-04-20 13:13] LABS: Albumin Peritoneal Fluid 0.3 g/dL
[2021-04-20 14:59] LABS: Chloride Rand Ur <20 mmol/L (32-290); Creatinine Random Urine 146 mg/dL (20-320)
[2021-04-20 16:00] VITALS: BP 104/51; PULSE 94; PULSE 97; RESP 21; TEMP 36.5; O2SAT 93
--- NOTE | 2021-04-20 16:01 | PCNFU ---
Nutrition Follow-Up Complete: Inadequate oral intake related to liver failure, ARF, and penumonia as evidenced by NPO Goal: Meet nutritional needs Pt is progressing towards goal Pt current nutrition is full liquid diet and dietary supplement Last recorded weight is 109.6 kg. Bowel Motility: +BM 04/20 Labs Reviewed: hgb 8.0, hct 23.8, alb 3.1, Na 126, K 5.1, GFR 13, BUN 149, Cr 4.7, Glu 137, AST 259 Meds Noted: albutein, ancef, folic acid, neurontin, lactulose, protonix, xifaxan, vitamin B1, thiamine Skin: jaundice and right upper abdomen wound Additional Notes: Unable to visit with pt due to following covid precautions. Per EMR, pt is on a full liquid diet and dietary supplement of ensure compact TID providing an additional 220kcal and 9g of protein. Spoke to nursing staff who reports that pt is tolerating diet with adequate intake. Nursing reports that pt is drinking dietary supplement. Agree with diet order at this time. Will continue to follow. Will monitor labs, medications, wt, and reported intake every 5 days
[2021-04-20 16:25] LABS: Glucose Point of Care 96 mg/dl (65-105)
[2021-04-20] MEDS: SODIUM BICARBONATE TAB 650 MG TABLET 1300 MG PO (17:50)
[2021-04-20 20:00] VITALS: BP 106/48; PULSE 100; PULSE 96; RESP 18; TEMP 36.8; O2SAT 99
[2021-04-20] MEDS: SALINE 0.65% NAS SOLN 44 ML BTL 1 SPRAY NASAL (21:19)
[2021-04-21] VITALS: PULSE 89
[2021-04-21] MEDS: ALBUMIN HUMAN 25% 12.5 GM/50ML 50 ML IVPB (00:45)
[2021-04-21 04:00] VITALS: BP 117/49; PULSE 93; PULSE 94; RESP 18; TEMP 36.8; O2SAT 96
[2021-04-21 05:16] LABS: Glucose Point of Care 83 mg/dl (65-105)
[2021-04-21 06:56] LABS: Glucose Point of Care 92 mg/dl (65-105)
[2021-04-21 07:45] LABS: Basophils Absolute Auto 0.1 K/mm3 (0.0-0.1); Basophils Percent Auto 0.4 % (0.2-1.2); Eosinophils Percent Auto 0.1 % (0-4.4); Hematocrit 23.1 % (42.0-52.0); Immature Granulocyte Percent A 3.4 % (0-0.5); Immature Platelet Fraction Pct 10.9 % (0.9-11.2); Lymphocytes Absolute Auto 1.42 K/mm3 (0.9-3.2); Lymphocytes Percent Auto 5.3 % (18.3-44.2); Mean Corpuscular HGB Conc 34.6 g/dl (32-36); Mean Corpuscular Hemoglobin 35.1 pg (26-34); Mean Corpuscular Volume 101.3 fl (80-100); Mean Platelet Volume 13.4 fl (7.4-10.4); Monocytes Percent Auto 11.1 % (2.6-8.5); Neutrophils Absolute Auto 21.2 K/mm3 (1.3-6.7); Neutrophils Percent Auto 79.7 % (45.5-73.1); Nucleated Red Blood Cells Perc 0.1 % (0.0-0.2); Platelet Count Result 39 k/mm3 (150-375); Red Blood Count 2.28 M/mm3 (4.6-6.20); Red Cell Distribution Width 16.7 % (11.5-14.5); White Blood Count 26.6 K/mm3 (4.5-10.0)
[2021-04-21 08:00] VITALS: BP 106/45; PULSE 93; PULSE 95; RESP 20; TEMP 36.9; O2SAT 96
[2021-04-21 08:14] LABS: Prothrombin Time 57.1 Seconds (11.1-14.7)
[2021-04-21 08:22] LABS: INR 6.9
[2021-04-21 08:32] LABS: Lactic Acid Reflex 3.6 mmol/L (0.7-2.1)
--- NOTE | 2021-04-21 09:00 | PM.IMPN ---
Progress Note: A&P Assessment and Plan (1) Decompensated hepatic cirrhosis: Code(s): K72.90 - Hepatic failure, unspecified without coma; K74.60 - Unspecified cirrhosis of liver Status: Acute Assessment and Plan: Full liquid diet advance as tolerated Daily intake and output Start Lasix drip and albumin drip on 04/18/2021 Currently on scheduled Lasix and albumin GI was consulted patient has anasarca from liver disease (2) Acute alcoholic hepatitis: Code(s): K70.10 - Alcoholic hepatitis without ascites Status: Acute Assessment and Plan: It was noted patient with an increment of his AST and known alcohol consumption recently Continue to trend liver enzymes High risk for mortality Supportive care Elevated INR status post vitamin K may need fresh frozen plasma before procedure (3) Acute kidney injury: Code(s): N17.9 - Acute kidney failure, unspecified Status: Acute Assessment and Plan: Patient with granular casts present in the urinalysis Ferguson catheter has been placed Suspect ATN as well as likely hepatorenal syndrome Will discontinue spironolactone Will discontinue beta-roderick On albumin and Lasix (4) SBP (spontaneous bacterial peritonitis): Code(s): K65.2 - Spontaneous bacterial peritonitis Status: Acute Assessment and Plan: Diagnostic paracentesis concern for spontaneous bacterial peritonitis Continue Ancef (5) Hyponatremia: Code(s): E87.1 - Hypo-osmolality and hyponatremia Status: Acute Assessment and Plan: Likely secondary to liver disease (6) Hepatic encephalopathy: Code(s): K72.90 - Hepatic failure, unspecified without coma Status: Acute Assessment and Plan: Continue lactulose (7) Coagulopathy: Code(s): D68.9 - Coagulation defect, unspecified Status: Acute Assessment and Plan: Secondary to liver disease Received vitamin K (8) Thrombocytopenia: Code(s): D69.6 - Thrombocytopenia, unspecified Status: Acute Assessment and Plan: Likely secondary to liver disease Continue to monitor (9) Pneumonia due to COVID-19 virus: Code(s): U07.1 - COVID-19; J12.82 - Pneumonia due to coronavirus disease 2019 Status: Acute Assessment and Plan: Patient not a candidate for remdesivir due to liver disease Supportive care (10) Tobacco dependence: Code(s): F17.200 - Nicotine dependence, unspecified, uncomplicated Status: Acute Assessment and Plan: Patient has received counseling on numerous occasions Follow-up in outpatient setting (11) Alcohol dependence: Code(s): F10.20 - Alcohol dependence, uncomplicated Status: Chronic Assessment and Plan: CIWA protocol as needed (12) Normochromic normocytic anemia: Code(s): D64.9 - Anemia, unspecified Status: Acute Assessment and Plan: Continue to monitor Transfuse as needed (13) Staphylococcus sepsis: Code(s): A41.2 - Sepsis due to unspecified staphylococcus Status: Acute Assessment and Plan: Currently on Ancef Pending final culture CT scan abdomen chest and pelvis shows pneumonia pulmonary edema large volume ascites Echo transthoracic negative Cardiology recommendation appreciated may need jae Plan for 4 weeks of IV antibiotics if no source of infection identified and follow-up with ID as outpatient Plan of 6 weeks of antibiotics if patient has infective endocarditis Subjective Date/time seen: 04/21/21 09:00 Interval history: 45 years old male with past medical history of chronic alcoholism liver cirrhosis presented to the hospital with altered mental status generalized weakness was found to have acute on chronic renal failure acute hepatitis admitted for further evaluation and treatment Patient feels weak Patient high risk for mortality Discussed with the patient Discussed with the nurse Patient want to be DNR DNI pa
--- NOTE | 2021-04-21 09:02 | WPDGIPROGNO ---
Progress Note: A&P Assessment and Plan (1) Decompensated hepatic cirrhosis: Code(s): K72.90 - Hepatic failure, unspecified without coma; K74.60 - Unspecified cirrhosis of liver Status: Acute Assessment and Plan: with high meld score complicated with SBP, worsening renal failure, coagulopathy, encephalopathy, COVID also persistent Staph infection (sensitive to ancef). 2d-echo no vegetation, patient will need at least 4-6 weeks of iv antibiotics high risk of mortality, prognosis is guarded I will try him on a low-sodium diet. (2) Acute alcoholic hepatitis: Code(s): K70.10 - Alcoholic hepatitis without ascites Status: Acute Assessment and Plan: can not use steroids because active infection supportive care (3) Staphylococcus sepsis: Code(s): A41.2 - Sepsis due to unspecified staphylococcus Status: Acute Assessment and Plan: staph bacteremia (alfaro sensitive) repeat blood cultures positive again- management by primary, he is on antibiotics, probably ID consult 2d-echo no vegetation (4) Acute kidney injury: Code(s): N17.9 - Acute kidney failure, unspecified Status: Acute Assessment and Plan: ATN vs [facility] nephrology on board diuretic discontinued and s/p iv albumin (5) SBP (spontaneous bacterial peritonitis): Code(s): K65.2 - Spontaneous bacterial peritonitis Status: Acute Assessment and Plan: he has Staph septicemia. It appears that the ascitic fluid cultures were negative, but undoubtedly he has some as BP based on the hematologic findings of the ascites fluid (6) COVID-19 virus infection: Code(s): U07.1 - COVID-19 Status: Acute (7) Coagulopathy: Code(s): D68.9 - Coagulation defect, unspecified Status: Acute Assessment and Plan: INR is up to 6.9. Clearly his liver disease is decompensated (8) Thrombocytopenia: Code(s): D69.6 - Thrombocytopenia, unspecified Status: Acute (9) Hepatic encephalopathy: Code(s): K72.90 - Hepatic failure, unspecified without coma Status: Acute Assessment and Plan: he is confused today. Remains on lactulose and xifaxan (10) Anasarca: Code(s): R60.1 - Generalized edema Status: Acute Assessment and Plan: generalized edema with weeping now. I will give him another dose of Lasix and begin Aldactone Subjective Date/time seen: 04/21/21 09:02 Interval history: he has been confused today. Last evening he try to eat his milk carton, he states he is hungry.. Review of Systems Review of Systems: All systems reviewed & are unremarkable except as noted in HPI and below Exam Const: General: confusion Orientation/consciousness: confusion Other: acutely ill, jaundice Eyes: Other: icteric sclerae GI: Inspection: distended GI Palp: Yes Soft to palpation and Yes Tenderness to palpation present (GI) ( Mild and diffuse) Other: no rebound Skin: General skin exam: other ( weeping from several sites) Other: jaundice Neuro: General: confusion Cranial nerves: Yes Normal hearing present Motor exam (neuro): Normal motor muscle tone present throughout Extrem: General: edema ( diffuse 4+ pitting edema) Psych: Other: awake and alert x3 Objective Data Vital Signs Vital Signs: Vital Signs - 24 hr 04/20/21 12:00 04/20/21 16:00 04/20/21 20:00 Temperature 36.6 C 36.5 C 36.8 C Pulse Rate 98 97 100 Respiratory Rate 20 21 H 18 Blood Pressure 129/68 104/51 L 106/48 L Pulse Oximetry 94 93 99 04/21/21 00:00 04/21/21 04:00 Temperature 36.8 C Pulse Rate 89 93 Respiratory Rate 18 Blood Pressure 117/49 L Pulse Oximetry 96 Intake/Output Intake/Output: Intake & Output 04/18/21 04/19/21 04/20/21 04/21/21 23:59 23:59 23:59 23:59 Intake Total 2800 2457.2 1657.2 1100 Output Total 300 425 400 250 Balance 2500 2032.2 1257.2 850 Meds/Results Medications: Active Medications Generic Name Dose
[2021-04-21] MEDS: PHYTONADIONE ADULT INJ 5 MG in DEXTROSE 5% IN WATER 50 ML 100 MG IVPB (09:06)
[2021-04-21] MEDS: FOLIC ACID 1 MG TABLET PO (10:03)
[2021-04-21] MEDS: FUROSEMIDE INJ 40 MG/4 ML VIAL IV PUSH (10:03)
[2021-04-21] MEDS: SODIUM BICARBONATE TAB 650 MG TABLET 1300 MG PO ×2 (10:04→14:17)
[2021-04-21] MEDS: GABAPENTIN 300 MG CAPSULE PO ×2 (10:04→14:16)
[2021-04-21] MEDS: rifAXIMin 550 MG TABLET PO (10:04)
[2021-04-21] MEDS: PANTOPRAZOLE SODIUM IV 40 MG VIAL IV PUSH (10:04)
[2021-04-21] MEDS: THIAMINE HCL 200 MG/2 ML VIAL 100 MG IV PUSH (10:05)
[2021-04-21] MEDS: THIAMINE HCL 100 MG TABLET PO (10:05)
[2021-04-21 10:13] LABS: Alanine Aminotransferase 59 U/L (4-50); Albumin Level 3.1 g/dL (3.5-5.1); Alkaline Phosphatase 184 U/L (38-126); Anion Gap 20 mmol/L (8-16); Aspartate Amino Transferase 258 U/L (17-59); Bilirubin,Total 36.9 mg/dL (0.2-1.3); Blood Urea Nitrogen > 120 mg/dL (9-20); Calcium 7.4 mg/dL (8.4-10.2); Carbon Dioxide 14 mmol/L (22-30); Chloride 92 mmol/L (98-107); Estimated CRCL calculation 20 ml/min; Estimated Glomerular Filt Rate 11; Glucose 79 mg/dL (65-110); Magnesium 2.7 mg/dL (1.6-2.3); Potassium 5.8 mmol/L (3.4-5.0); Sodium 126 mmol/L (137-145)
[2021-04-21 10:38] LABS: Reflex Lactic Acid Yes or No Add Lactic
--- NOTE | 2021-04-21 11:07 | P.PNNP_ITS ---
Progress Note: A&P Assessment and Plan (1) Acute renal failure: Qualifiers: Acute renal failure type: unspecified Qualified Code(s): N17.9 - Acute kidney failure, unspecified Code(s): N17.9 - Acute kidney failure, unspecified Status: Acute Assessment and Plan: * normal creatinine at baseline * suspect ATN from: * infection [SBP + bacteremia (endocarditis?) + COVID-19] * pre-renal factors * liver disease/physiology - possible HRS Or hepatic underfilling * relative hypotension * renal ultrasound without any acute issues * urine electrolytes consistent with pre-renal azotemia * doubt this represents volume depletion since he is volume overloaded * rather, this probably more reflective of his underlying liver disease (although I suppose he could have a component of intravascular volume depletion) * urine eosinophils negative * urine output remains suboptimal - trial of IV albumin + IV diuretics not very helpful; re-attempt?? * BUN and creatinine continue to rise. * The patient was made a medicine only code. Case management working with patient and his girlfriend concerning power of patent attorney papers. * overall the patient looks extremely ill. His liver is at the center of this. He has an INR of 6.9 and a platelet count of only 39 so is at extremely high risk for bleeding for any intervention. Paracentesis was is canceled because of this concern. His BUN and creatinine continue to rise. Dialysis would be extremely risky in this situation as he would be likely to bleed out from a large bore catheter with his coagulation status. His overall prognosis is poor even if we do dialysis because of his liver failure. Nursing tells me that they are talking about hospice. I would agree with this approach. * While decisions are being made, will add midodrine and octreotide to the regimen in case this is hepatorenal syndrome. (2) Metabolic acidosis: Code(s): E87.2 - Acidosis Status: Acute Assessment and Plan: * due to a combination of BETO + lactic acidosis * Bicarbonate level is stable. * started on oral sodium bicarbonate * I had considered starting bicarb fluids but I worry that could make his edema/swelling/fluid status worse * Lactic acid improving (3) Hyponatremia: Code(s): E87.1 - Hypo-osmolality and hyponatremia Status: Acute Assessment and Plan: * likely due to a combination of BETO + decompensated liver disease * fluid restriction as tolerated * follow trend (4) Decompensated hepatic cirrhosis: Code(s): K72.90 - Hepatic failure, unspecified without coma; K74.60 - Unspecified cirrhosis of liver Status: Acute Assessment and Plan: * presumed to be secondary to ongoing alcohol use up until admission worsened by infection (SBP/bacteremia/COVID-19) * continue supportive therapy * GI recommendations (5) Bacteremia: Code(s): R78.81 - Bacteremia Status: Acute Assessment and Plan: * blood culture with Staph * on IV antibiotics * follow repeat cultures * due to SBP(?) * TTE without endocarditis; high risk for PEGGY per Cardiology (6) SBP (spontaneous bacterial peritonitis): Code(s): K65.2 - Spontaneous bacterial peritonitis Status: Acute Assessment and Plan: * s/p paracentesis * peritoneal fluid cell count c/w with this * on antibiotic therapy (7) COVID-19 virus infection: Code(s): U07.1 - COVID-19 Status: Acute Assessment and Plan: * no evidence of hypoxia a
--- NOTE | 2021-04-21 11:07 | PM.PNNEP ---
Progress Note: A&P Assessment and Plan (1) Acute renal failure: Qualifiers: Acute renal failure type: unspecified Qualified Code(s): N17.9 - Acute kidney failure, unspecified Code(s): N17.9 - Acute kidney failure, unspecified Status: Acute Assessment and Plan: normal creatinine at baseline suspect ATN from: infection [SBP + bacteremia (endocarditis?) + COVID-19] pre-renal factors liver disease/physiology - possible HRS Or hepatic underfilling relative hypotension renal ultrasound without any acute issues urine electrolytes consistent with pre-renal azotemia doubt this represents volume depletion since he is volume overloaded rather, this probably more reflective of his underlying liver disease (although I suppose he could have a component of intravascular volume depletion) urine eosinophils negative urine output remains suboptimal - trial of IV albumin + IV diuretics not very helpful; re-attempt?? BUN and creatinine continue to rise. The patient was made a medicine only code. Case management working with patient and his girlfriend concerning power of prosecuting attorney papers. overall the patient looks extremely ill. His liver is at the center of this. He has an INR of 6.9 and a platelet count of only 39 so is at extremely high risk for bleeding for any intervention. Paracentesis was is canceled because of this concern. His BUN and creatinine continue to rise. Dialysis would be extremely risky in this situation as he would be likely to bleed out from a large bore catheter with his coagulation status. His overall prognosis is poor even if we do dialysis because of his liver failure. Nursing tells me that they are talking about hospice. I would agree with this approach. While decisions are being made, will add midodrine and octreotide to the regimen in case this is hepatorenal syndrome. (2) Metabolic acidosis: Code(s): E87.2 - Acidosis Status: Acute Assessment and Plan: due to a combination of BETO + lactic acidosis Bicarbonate level is stable. started on oral sodium bicarbonate I had considered starting bicarb fluids but I worry that could make his edema/swelling/fluid status worse Lactic acid improving (3) Hyponatremia: Code(s): E87.1 - Hypo-osmolality and hyponatremia Status: Acute Assessment and Plan: likely due to a combination of BETO + decompensated liver disease fluid restriction as tolerated follow trend (4) Decompensated hepatic cirrhosis: Code(s): K72.90 - Hepatic failure, unspecified without coma; K74.60 - Unspecified cirrhosis of liver Status: Acute Assessment and Plan: presumed to be secondary to ongoing alcohol use up until admission worsened by infection (SBP/bacteremia/COVID-19) continue supportive therapy GI recommendations (5) Bacteremia: Code(s): R78.81 - Bacteremia Status: Acute Assessment and Plan: blood culture with Staph on IV antibiotics follow repeat cultures due to SBP(?) TTE without endocarditis; high risk for PEGGY per Cardiology (6) SBP (spontaneous bacterial peritonitis): Code(s): K65.2 - Spontaneous bacterial peritonitis Status: Acute Assessment and Plan: s/p paracentesis peritoneal fluid cell count c/w with this on antibiotic therapy (7) COVID-19 virus infection: Code(s): U07.1 - COVID-19 Status: Acute Assessment and Plan: no evidence of hypoxia at this time no need for steroids and not a candidate for remdesivir due to liver issues supportive therapy (8) Alcohol dependence: Code(s): F10.20 - Alcohol dependence, uncomplicated Status: Chronic Assessment and Plan: he was drinking up until admission. Subjective Date/time seen: 04/21/21 11:07 Interval history: Patient is drowsy and confused. He cannot carry on a conversation. Has mild dyspnea. Exam Kam
[2021-04-21 11:38] LABS: Lactic Acid 3.7 mmol/L (0.7-2.1)
[2021-04-21] MEDS: SPIRONOLACTONE 50 MG TABLET 100 MG PO (11:51)
[2021-04-21] MEDS: ALBUMIN HUMAN 25% 25 GM/100 ML 100 ML IVPB (11:52)
[2021-04-21 12:00] VITALS: BP 105/55; PULSE 100; PULSE 96; RESP 28; TEMP 37.1; O2SAT 97
[2021-04-21 12:21] LABS: Glucose Point of Care 75 mg/dl (65-105)
--- NOTE | 2021-04-21 13:12 | PCOTNOTE ---
Per RN, pt is not appropriate to be seen today. Will continue per POC duration/frequency tomorrow if appropriate.
[2021-04-21] MEDS: LACTULOSE 20 GM/30 ML UDC PO (14:16)
[2021-04-21] MEDS: MIDODRINE HCL 2.5 MG TABLET 7.5 MG PO (14:16)
[2021-04-21] MEDS: OCTREOTIDE ACETATE 100 MCG/ML VIAL SUB-Q (14:16)
[2021-04-21 16:00] VITALS: BP 82/38; PULSE 94; PULSE 98; RESP 36; TEMP 37.1; O2SAT 93
[2021-04-21] MEDS: LORazepam INJ (*CRX) 2 MG/ML VIAL 0.5 MG IV PUSH (17:25)
[2021-04-21 19:47] LABS: Glucose Point of Care 70 mg/dl (65-105)
--- NOTE | 2021-04-23 18:32 | PM.DDS ---
Discharge Summary Date and Time Date of : 04/21/21 Time of : 17:57 Provider Pronounced By: Jeanette Dinero RN and Siria Gallardo RN Probable Cause of Probable Cause of : liver failure Summary Hospital Course: Patient was admitted to the hospital was found to have acute liver failure COVID-19 pneumonia MSSA pneumonia positive blood culture acute renal failure patient condition continued to deteriorate patient family decided to proceed with comfort care patient under comfort care (1) Decompensated hepatic cirrhosis: Code(s): K72.90 - Hepatic failure, unspecified without coma; K74.60 - Unspecified cirrhosis of liver Status: Acute (2) Acute alcoholic hepatitis: Code(s): K70.10 - Alcoholic hepatitis without ascites Status: Acute (3) Acute kidney injury: Code(s): N17.9 - Acute kidney failure, unspecified Status: Acute (4) SBP (spontaneous bacterial peritonitis): Code(s): K65.2 - Spontaneous bacterial peritonitis Status: Acute : (5) Hyponatremia: Code(s): E87.1 - Hypo-osmolality and hyponatremia Status: Acute (6) Hepatic encephalopathy: Code(s): K72.90 - Hepatic failure, unspecified without coma Status: Acute (7) Coagulopathy: Code(s): D68.9 - Coagulation defect, unspecified Status: Acute (8) Thrombocytopenia: Code(s): D69.6 - Thrombocytopenia, unspecified Status: Acute (9) Pneumonia due to COVID-19 virus: Code(s): U07.1 - COVID-19; J12.82 - Pneumonia due to coronavirus disease 2019 Status: Acute (10) Tobacco dependence: Code(s): F17.200 - Nicotine dependence, unspecified, uncomplicated Status: Acute (11) Alcohol dependence: Code(s): F10.20 - Alcohol dependence, uncomplicated Status: Chronic (12) Normochromic normocytic anemia: Code(s): D64.9 - Anemia, unspecified Status: Acute (13) Staphylococcus sepsis: Code(s): A41.2 - Sepsis due to unspecified staphylococcus Status: Acute : Additional Data Confirmation of as documented by pronouncing clinician: Pupillary Reflex, Palpable Pulses, Response to Stimuli, Heart Tones and Breath Sounds Name of Provider Notified: Dr. 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
== END 2021-04-21 17:57 | disposition expired | DRG 720 ==
LOC: ANHED 22:45 → ANHIMU 23:09 → ANH3MEDSUR 04-16 16:23
PROVIDERS: Emergency Medicine; Internal Medicine; Internal Medicine Gastroenterology; Internal Medicine Nephrology; Admitting Provider Internal Medicine; Emergency Provider Emergency Medicine; PCP Internal Medicine Infectious Disease; Visit Provider Internal Medicine
DX: A41.2 Sepsis due to unspecified staphylococcus (principal); K72.00 Acute and subacute hepatic failure without coma; U07.1 COVID-19; J12.82 Pneumonia due to coronavirus disease 2019; K70.10 Alcoholic hepatitis without ascites; K70.30 Alcoholic cirrhosis of liver without ascites; J15.211 Pneumonia due to Methicillin susceptible Staphylococcus aureus; N17.9 Acute kidney failure, unspecified; K65.2 Spontaneous bacterial peritonitis; D64.9 Anemia, unspecified; E87.1 Hypo-osmolality and hyponatremia; D68.9 Coagulation defect, unspecified; K76.6 Portal hypertension; D69.6 Thrombocytopenia, unspecified; F10.20 Alcohol dependence, uncomplicated; F17.210 Nicotine dependence, cigarettes, uncomplicated; I50.9 Heart failure, unspecified; R60.9 Edema, unspecified; Z90.49 Acquired absence of other specified parts of digestive tract; E87.2 Acidosis; Z66 Do not resuscitate; E16.2 Hypoglycemia, unspecified; Z86.19 Personal history of other infectious and parasitic diseases
CPT/HCPCS: 36415; 36430; 36600; 49083; 70450; 71045; 71250; 74176; 76705; 76775; 80053; 80307; 81001; 82042; 82140; 82150; 82436; 82570; 82805; 82945; 82948; 83605; 83615; 83690; 83735; 83874; 84100; 84156; 84157; 84300; 84439; 84443; 84478; 84480; 85025; 85027; 85055; 85610; 85999; 86850; 86900; 86901; 87040; 87077; 87147; 87181; 87186; 89051; 93005; 93306; 96365; 96366; 96367; 96375; 96376; 97162; 97165; 99285; A9270; C9113; C9803; G0378; J0456; J0610; J0690; J0696; J0743; J1940; J2060; J2270; J2354; J3370; J3411; J3430; J7030; J7040; J7042; J7050; J7070; P9017; P9047; U0003; U0005